=== PATIENT | female | born 1970 | race Caucasian/White ===

== ENCOUNTER → 2020-03-11 | Outpatient (CLI) | payer BC ==
[2020-03-11 09:20] LABS: ABSOLUTE BASOPHILS # (AUTO) 0.1 10^3/uL (0.0-0.2); ABSOLUTE EOSINOPHILS # (AUTO) 0.4 10^3/uL (0.0-0.6); ABSOLUTE LYMPHOCYTES (AUTO) 1.2 10^3/uL (0.5-4.7); ABSOLUTE MONOCYTES (AUTO) 0.4 10^3/uL (0.1-1.4); ABSOLUTE NEUT (AUTO) 3.4 10^3/uL (1.7-8.2); BASOPHILS % (AUTO) 1.1 % (0-2); EOSINOPHILS % (AUTO) 7.5 % (0-6); HEMATOCRIT 40.6 % (36.0-47.0); HEMOGLOBIN 14.1 g/dL (12.0-15.5); MEAN CORPUSCULAR HEMOGLOBIN 32.3 pg (27.0-33.4); MEAN CORPUSCULAR HGB CONC 34.7 g/dL (32.0-36.0); MEAN CORPUSCULAR VOLUME 93 fl (80-97); MONOCYTES % (AUTO) 7.8 % (3-13); PLATELET COUNT 259 10^3/uL (150-450); RED BLOOD COUNT 4.37 10^6/uL (3.72-5.28); RED CELL DISTRIBUTION WIDTH 12.8 % (11.5-14.0); SEGMENTED NEUTROPHILS % (AUTO) 61.6 % (42-78); TOTAL CELLS COUNTED % (AUTO) 100 %; WHITE BLOOD COUNT 5.5 10^3/uL (4.0-10.5)
[2020-03-11 09:52] LABS: ALBUMIN 4.7 g/dL (3.5-5.0); ALKALINE PHOSPHATASE 85 U/L (38-126); ASPARTATE AMINO TRANSFERASE 33 U/L (14-36); BILIRUBIN,DIRECT 0.3 mg/dL (0.0-0.4); BILIRUBIN,TOTAL 0.6 mg/dL (0.2-1.3); TOTAL PROTEIN 8.2 g/dL (6.3-8.2)
[2020-03-11 10:00] LABS: ANION GAP 9 (5-19); ASPARTATE AMINO TRANSFERASE 32 U/L (14-36); BLOOD UREA NITROGEN 16 mg/dL (7-20); CALCIUM 9.6 mg/dL (8.4-10.2); CARBON DIOXIDE 30 mmol/L (22-30); CHLORIDE 103 mmol/L (98-107); GLUCOSE 118 mg/dL (75-110); POTASSIUM 4.7 mmol/L (3.6-5.0)
[2020-03-12 11:38] LABS: HEPATITIS C VIRUS AB <0.1 s/co ratio (0.0-0.9)
[2020-03-12 13:10] LABS: HEPATITS B SURFACE ANTIGEN Negative (Negative)
[2020-03-12 14:44] LABS: ANTINUCLEAR ANTIBODIES Negative (Negative)
== END ==
LOC: OD 07:52
PROVIDERS: ATTEND Physician Assistant
DX: R94.5 Abnormal results of liver function studies (principal); I10 Essential (primary) hypertension; Z79.899 Other long term (current) drug therapy
CPT/HCPCS: 36415; 80048; 80076; 84450; 84460; 85025; 86038; 86235; 86256; 86707; 86803; 86804; 87340

== ENCOUNTER 2020-05-07 11:41 | Inpatient (IN) | payer BC ==
[2020-05-07] MEDS ORDERED: MORPHINE SULFATE 10 MG/ML INJ IV ONE (12:56)
[2020-05-07] MEDS ORDERED: PROMETHAZINE HCL INJ 25 MG/1 ML VIAL IV ONE (12:56)
[2020-05-07] MEDS ORDERED: NORMAL SALINE 1000 ML 1,000 ML IV ONE ×2 (12:56→15:19)
[2020-05-07 13:37] LABS: ABSOLUTE EOSINOPHILS # (AUTO) 0.8 10^3/uL (0.0-0.6); ABSOLUTE LYMPHOCYTES (AUTO) 1.2 10^3/uL (0.5-4.7); ABSOLUTE MONOCYTES (AUTO) 1.2 10^3/uL (0.1-1.4); ABSOLUTE NEUT (AUTO) 7.9 10^3/uL (1.7-8.2); BASOPHILS % (AUTO) 0.3 % (0-2); EOSINOPHILS % (AUTO) 6.8 % (0-6); HEMATOCRIT 34.6 % (36.0-47.0); HEMOGLOBIN 11.8 g/dL (12.0-15.5); LYMPHOCYTES % (AUTO) 10.6 % (13-45); MEAN CORPUSCULAR HEMOGLOBIN 31.5 pg (27.0-33.4); MEAN CORPUSCULAR HGB CONC 34.1 g/dL (32.0-36.0); MEAN CORPUSCULAR VOLUME 92 fl (80-97); MONOCYTES % (AUTO) 10.8 % (3-13); PLATELET COUNT 398 10^3/uL (150-450); RED BLOOD COUNT 3.74 10^6/uL (3.72-5.28); RED CELL DISTRIBUTION WIDTH 13.7 % (11.5-14.0); SEGMENTED NEUTROPHILS % (AUTO) 71.5 % (42-78); TOTAL CELLS COUNTED % (AUTO) 100 %
[2020-05-07 14:00] LABS: ALBUMIN 3.7 g/dL (3.5-5.0); ALKALINE PHOSPHATASE 89 U/L (38-126); ANION GAP 9 (5-19); ASPARTATE AMINO TRANSFERASE 27 U/L (14-36); BILIRUBIN,DIRECT 0.1 mg/dL (0.0-0.4); BILIRUBIN,TOTAL 0.6 mg/dL (0.2-1.3); BLOOD UREA NITROGEN 10 mg/dL (7-20); CALCIUM 8.8 mg/dL (8.4-10.2); CARBON DIOXIDE 34 mmol/L (22-30); CHLORIDE 90 mmol/L (98-107); GLUCOSE 153 mg/dL (75-110); POTASSIUM 3.5 mmol/L (3.6-5.0)
--- NOTE | 2020-05-07 15:00 | RADIOLOGY REPORT (SQ) ---
EXAM DESCRIPTION: CT ABD/PELVIS WITH IV ONLY IMAGES COMPLETED DATE/TIME: 05/07/2020 2:38 pm REASON FOR STUDY: elevated lipase, eval for pancreatitis COMPARISON: 10/24/2006 TECHNIQUE: CT scan of the abdomen and pelvis performed using helical scanning technique with dynamic intravenous contrast injection. No oral contrast. Images reviewed with lung, soft tissue, and bone windows. Reconstructed coronal and sagittal MPR images reviewed. Delayed images for evaluation of the urinary system also acquired. All images stored on PACS. All CT scanners at this facility use dose modulation, iterative reconstruction, and/or weight based d osing when appropriate to reduce radiation dose to as low as reasonably achievable (ALARA). [facility]: Dose Right [facility]: CareDose [facility]: Dose Right [facility]: Teradose 4D [facility]: Xitronix CONTRAST TYPE AND DOSE: contrast/concentration: Isovue 350.00 mmol/ml; Total Contrast Delivered: 100 .0 ml; Total Saline Delivered: 52.0 ml RENAL FUNCTION: Creatinine 0.98 RADIATION DOSE: CT Rad equipment meets quality standard of care and radiation dose reduction techniq ues were employed. CTDIvol: 13.6 - 18.2 mGy. DLP: 1891 mGy-cm.. LIMITATIONS: None. FINDINGS: LOWER CHEST: No significant findings. No nodules or infiltrates. LIVER: Hepatic steatosis. SPLEEN: Normal size. No focal lesions. PANCREAS: Fullness about the pancreatic tail to without discrete mass identified. This is stable com pared to exam dated 10/29/2006. Minimal peripancreatic stranding without significant fluid collection . No areas of hypoenhancement suggestive of pancreatic necrosis. GALLBLADDER: Surgically absent. ADRENAL GLANDS: No significant masses or asymmetry. RIGHT KIDNEY AND URETER: No solid masses. No significant calcifications. No hydronephrosis or hyd roureter. LEFT KIDNEY AND URETER: No solid masses. No significant calcifications. No hydronephrosis or hydr oureter. AORTA AND VESSELS: No aneurysm. No dissection. Renal arteries, SMA, celiac without stenosis. RETROPERITONEUM: No retroperitoneal adenopathy, hemorrhage or masses. BOWEL AND PERITONEAL CAVITY: No evidence of intestinal obstruction. Decompressed descending and rect osigmoid colon with mild wall thickening in mesenteric prominence. APPENDIX: Surgically absent. PELVIS: Decompressed urinary bladder. No pelvic free fluid, adenopathy or mass. Status post hystere ctomy. ABDOMINAL WALL: No masses. No hernias. BONES: No acute bony abnormality. No suspicious lytic or blastic osseous lesions. Lower lumbar face t arthropathy. OTHER: No other significant finding. IMPRESSION: 1. Minimal peripancreatic stranding compatible with acute interstitial pancreatitis. N o findings to suggest pancreatic necrosis. No significant collection. 2. Decompressed descending and rectosigmoid colon with mild diffuse wall thickening. Recommend joanie elation for evidence of colitis. 3. Hepatic steatosis. Cholecystectomy. TECHNICAL DOCUMENTATION: JOB ID: [id number] Quality ID # [id number]: Final reports with documentation of one or more dose reduction techniques (e.g., Au tomated exposure control, adjustment of the mA and/or kV according to patient size, use of iterative reconstruction technique) 2010 [employer]- All Rights Reserved Reading location - IP/workstation name: [email or web address]
[2020-05-07] MEDS ORDERED: POTASSI CL 40 MEQ/NS 1L 1,000 ML IV ONE (15:22)
[2020-05-07 15:25] LABS: APPEARANCE,URINE CLEAR; BILIRUBIN,URINE NEGATIVE (NEGATIVE); COLOR,URINE STRAW; GLUCOSE, URINE NEGATIVE (NEGATIVE); KETONES,URINE NEGATIVE (NEGATIVE); LEUKOCYTE ESTERASE,URINE NEGATIVE (NEGATIVE); NITRITE,URINE NEGATIVE (NEGATIVE); PROTEIN,URINE NEGATIVE (NEGATIVE); URINE SPECIFIC GRAVITY 1.044; UROBILINOGEN,URINE NEGATIVE mg/dL (<2.0)
--- NOTE | 2020-05-07 15:33 | ER Document Report ---
ED General - General Chief Complaint: Epigastric Pain Stated Complaint: NAUSEA,VOMITING,DIARRHEA Time Seen by Provider: 05/07/20 12:27 Primary Care Provider: ROSEMARY ENAMORADO MD [Primary Care Provider] - Follow up as needed TRAVEL OUTSIDE OF THE [place] IN LAST 30 DAYS: No - HPI Notes: Patient is a 49-year-old female who has a history of ulcerative colitis, hypertension, who presents emergency department for evaluation of epigastric pain, nausea, vomiting. She has chronic diarrhea, usually bloody secondary to her ulcerative colitis. She states that she has had greenish diarrhea over the last week. She has had nausea with multiple episodes of emesis over the last week. She has epigastric pain that radiates over the right upper quadrant. It radiates into the back. No fever she has had some chills. No urinary symptoms. She had seen her wireless team member, who ordered a right upper quadrant ultrasound, showed only fatty liver. She tried Zofran at home without any significant relief. - Related Data Allergies/Adverse Reactions: Sulfa (Sulfonamide Antibiotics) Allergy (Unknown, Verified 05/07/20 12:07) Home Medications: nexium, zofran, hctz, vit d2, delzicol Past Medical History - General Information source: Patient - Social History Smoking Status: Never Smoker Chew tobacco use (# tins/day): No Frequency of alcohol use: None Drug Abuse: None Family History: Reviewed & Not Pertinent Patient has homicidal ideation: No - Past Medical History Cardiac Medical History: Reports: Hx Hypercholesterolemia, Hx Hypertension GI Medical History: Reports: Hx Ulcerative Colitis Past Surgical History: Reports: Hx Appendectomy, Hx Section, Hx Cholecystectomy, Hx Hysterectomy, Hx Tubal Ligation Review of Systems - Review of Systems Constitutional: See HPI EENT: No symptoms reported Cardiovascular: No symptoms reported Respiratory: No symptoms reported Gastrointestinal: See HPI Genitourinary: No symptoms reported Musculoskeletal: No symptoms reported Skin: No symptoms reported Neurological/Psychological: No symptoms reported -: Yes All other systems reviewed and negative Physical Exam - Vital signs Vitals: Temp Pulse Resp BP Pulse Ox 98.7 F 122 H 18 131/66 H 99 05/07/20 12:00 05/07/20 12:00 05/07/20 12:00 05/07/20 12:00 05/07/20 12:00 - Notes Notes: vital signs reviewed, please refer to chart. Head is normocephalic, atraumatic. Pupils equal round, reactive to light. Neck is supple without meningismus. Heart is regular rate and rhythm. Lungs are clear to auscultation bilaterally. Abdomen is soft, moderately tender without rebound or guarding, normoactive bowel sounds throughout. Extremities without cyanosis, clubbing. Posterior calves are nontender. Peripheral pulses are equal. Skin is warm and dry. Patient is awake, alert, neurological exam is nonfocal. Course - Re-evaluation Re-evalutation: 05/07/20 15:32 Patient presents emergency department for evaluation. She was given IV fluids, Phenergan, morphine. She had moderate improvement in her symptoms. Laboratory investigations revealed an elevated lipase. CT scan of the abdomen pelvis with IV contrast was ordered and showed acute interstitial pancreatitis. The patient does not have a gallbladder. She is kept n.p.o. Her potassium was borderline, this was replaced with her second liter of fluids. She is currently stable. I spoke with Dr. Denis, he will admit the patient for further care. - Vital Signs Vital signs: Temp Pulse Resp BP Pulse Ox 98.7 F 95 14 124/54 L 92 05/07/20 12:00 05/07/20 14:07 05/07/20 14:07 05/07/20 14:07 05/07/20 14:07 - Laboratory Result Diagrams: 05/07/20 12:51 05/07/20 12:51 Laboratory results interpreted by me: 05/07/20 05/07/20 12:51 12:51 WBC 11.0 H Hgb 11.8 L Hct 34.6 L Lymph % (Auto) 10.6 L Eos % (Auto) 6.8 H Absolute Eos (auto) 0.8 H Sodium 132.5 L Potassium 3.5 L Chloride 90 L Carbon Dioxide 34 H Glucose 153 H Lipase 924.0 H - Diagnostic Test Radiology reviewed: Image reviewed, Reports reviewed Radiology results interpreted by me: 05/07/20 15:33 Abdomen/Pelvis CT 05/07/20 14:07 IMPRESSION: 1. Minimal peripancreatic stranding compatible with acute interstitial pancreatitis. No findings to suggest pancreatic necrosis. No significant collection. 2. Decompressed descending and rectosigmoid colon with mild diffuse wall thickening. Recommend correlation for evidence of colitis. 3. Hepatic steatosis. Cholecystectomy. Discharge - Discharge Clinical Impression: Acute pancreatitis Qualifiers: Pancreatitis type: unspecified pancreatitis type Acute pancreatitis complication: unspecified Qualified Code(s): K85.90 - Acute pancreatitis without necrosis or infection, unspecified Condition: Stable Disposition: ADMITTED INPATIENT Admitting Provider: Cira (Hospitalist) Unit Admitted: Medical Floor Referrals: ROSEMARY ENAMORADO MD [Primary Care Provider] - Follow up as needed
[2020-05-07] MEDS ORDERED: NORMAL SALINE 1000 ML 1,000 ML IV PRN (15:55)
[2020-05-07] MEDS ORDERED: GLUCAGON,HUMAN RECOMB 1 MG INJ SUBCUT PRN (15:55)
[2020-05-07] MEDS ORDERED: ACETAMINOPHEN 325 MG TABLET PO PRN (15:55)
[2020-05-07] MEDS ORDERED: DEXTROSE 40% GEL 15 GM TUBE PO PRN ×2 (15:55)
[2020-05-07] MEDS ORDERED: DEXTROSE 50%-WATER 25 GM/50 ML DISP.SYRIN IV PRN ×2 (15:55)
[2020-05-07] MEDS ORDERED: LABETALOL HCL INJ 20 MG/4 ML DISP.SYRIN IV PRN (16:01)
--- NOTE | 2020-05-07 16:09 | PDOC H&P ---
History of Present Illness Admission Date/PCP: 05/07/20 15:38 ROSEMARY PAIGE MD Patient complains of: Came in with complaints of nausea vomiting in association with abdominal pain and loose stools for the last 3 to 4 days. History of Present Illness: JAYLYN AUSTIN is a 49 year old female with history of hypertension, ulcerative colitis, history of cholecystectomy came to the emergency room with complaints of abdominal pain associated with nausea vomiting for the last 3 to 4 days. Patient has history of chronic diarrhea secondary to ulcerative colitis. Work- up in the emergency room indicates acute pancreatitis with elevated lipase. Patient denies any alcohol use and this is the first episode of pancreatitis. She was given IV morphine, Phenergan in the ER and patient is same pain is much improved and nausea is resolving. She agreed to stay in the hospital for further management. She sees Dr. Paige as primary care and Dr. Parks is her solid center winder. Past Medical History Cardiac Medical History: Reports: Hyperlipidema, Hypertension GI Medical History: Reports: Ulcerative Colitis Skin Medical History: Reports: None Psychiatric Medical History: Reports: None Traumatic Medical History: Reports: None Hematology: Reports: None Infectious Medical History: Reports: None Past Surgical History Past Surgical History: Reports: Appendectomy, Section, Cholecystectomy, Hysterectomy, Tubal Ligation Social History Smoking Status: Never Smoker Electronic Cigarette use?: No Hx Recreational Drug Use: No Hx Prescription Drug Abuse: No - Advance Directive Resuscitation Status: Full Code Family History Family History: Reviewed & Not Pertinent Parental Family History Reviewed: No - Family history of hypertension Children Family History Reviewed: Unknown Sibling(s) Family History Reviewed.: Unknown Medication/Allergy Home Medications: Cyclobenzaprine HCl [Flexeril 10 mg Tablet] 10 mg PO TIDP PRN #15 tab 05/18/14 Hydrocodone/Acetaminophen [[place] 5-325 mg Tabs #6 ER Disp] 1 tab PO Q4H PRN #6 dspk 05/18/14 Methylprednisolone [Medrol Dosepack (4 mg/Tab) 21 Tab/Dosepak] 4 mg PO ASDIR PRN #21 tab.ds.pk 05/18/14 Allergies/Adverse Reactions: Sulfa (Sulfonamide Antibiotics) Allergy (Unknown, Verified 05/07/20 12:07) Review of Systems Constitutional: ABSENT: fever(s), headache(s), night sweats, weakness Eyes: ABSENT: visual disturbances Ears: ABSENT: hearing changes Nose, Mouth, and Throat: ABSENT: sore throat Cardiovascular: ABSENT: edema Respiratory: ABSENT: dyspnea, hemoptysis Gastrointestinal: PRESENT: abdominal pain, diarrhea, nausea, vomiting Musculoskeletal: ABSENT: joint swelling Integumentary: ABSENT: rash, wounds Neurological: ABSENT: abnormal gait, abnormal speech, confusion, dizziness, focal weakness, syncope Psychiatric: ABSENT: anxiety, depression, homidical ideation, suicidal ideation Physical Exam Vital Signs: Temp Pulse Resp BP Pulse Ox 98.7 F 95 14 124/54 L 92 05/07/20 12:00 05/07/20 14:07 05/07/20 14:07 05/07/20 14:07 05/07/20 14:07 Intake & Output 05/06/20 05/07/20 05/08/20 06:59 06:59 06:59 Intake Total 1000 Balance 1000 Weight 88.451 kg General appearance: PRESENT: no acute distress Head exam: PRESENT: atraumatic Eye exam: PRESENT: PERRLA Ear exam: PRESENT: normal external ear exam Neck exam: ABSENT: carotid bruit, JVD, lymphadenopathy, thyromegaly Respiratory exam: PRESENT: decreased breath sounds Cardiovascular exam: PRESENT: RRR. ABSENT: diastolic murmur, rubs, systolic murmur GI/Abdominal exam: PRESENT: normal bowel sounds, soft, tenderness. ABSENT: distended, guarding, mass, organolmegaly, rebound Rectal exam: PRESENT: deferred Extremities exam: PRESENT: full ROM. ABSENT: calf tenderness, clubbing, pedal edema Neurological exam: PRESENT: alert, awake, oriented to person, oriented to place, oriented to time, oriented to situation, CN II-XII grossly intact. ABSENT: motor sensory deficit Psychiatric exam: PRESENT: appropriate affect, normal mood. ABSENT: homicidal ideation, suicidal ideation Results Laboratory Results: 05/07/20 12:51 05/07/20 12:51 05/07/20 05/07/20 05/07/20 12:51 12:51 12:51 WBC 11.0 H RBC 3.74 Hgb 11.8 L Hct 34.6 L MCV 92 MCH 31.5 MCHC 34.1 RDW 13.7 Plt Count 398 Seg Neutrophils % 71.5 Sodium 132.5 L Potassium 3.5 L Chloride 90 L Carbon Dioxide 34 H Anion Gap 9 BUN 10 Creatinine 0.98 Est GFR ( Amer) > 60 Glucose 153 H Calcium 8.8 Total Bilirubin 0.6 AST 27 Alkaline Phosphatase 89 Total Protein 7.0 Albumin 3.7 Lipase 924.0 H Urine Color Cancelled Urine Appearance Cancelled Urine pH Cancelled Ur Specific [place] Cancelled Urine Protein Cancelled Urine Glucose (UA) Cancelled Urine Ketones Cancelled Urine Blood Cancelled Urine Nitrite Cancelled Ur Leukocyte Esterase Cancelled Urine WBC (Auto) Cancelled Urine RBC (Auto) Cancelled 05/07/20 15:10 WBC RBC Hgb Hct MCV MCH MCHC RDW Plt Count Seg Neutrophils % Sodium Potassium Chloride Carbon Dioxide Anion Gap BUN Creatinine Est GFR ( Amer) Glucose Calcium Total Bilirubin AST Alkaline Phosphatase Total Protein Albumin Lipase Urine Color STRAW Urine Appearance CLEAR Urine pH 6.0 Ur Specific [place] 1.044 Urine Protein NEGATIVE Urine Glucose (UA) NEGATIVE Urine Ketones NEGATIVE Urine Blood NEGATIVE Urine Nitrite NEGATIVE Ur Leukocyte Esterase NEGATIVE Urine WBC (Auto) 0 Urine RBC (Auto) Impressions: Abdomen/Pelvis CT 05/07/20 14:07 IMPRESSION: 1. Minimal peripancreatic stranding compatible with acute interstitial pancreatitis. No findings to suggest pancreatic necrosis. No significant collection. 2. Decompressed descending and rectosigmoid colon with mild diffuse wall thickening. Recommend correlation for evidence of colitis. 3. Hepatic steatosis. Cholecystectomy. Assessment and Plan - Diagnosis (1) Acute pancreatitis Qualifiers: Pancreatitis type: unspecified pancreatitis type Acute pancreatitis complication: unspecified Qualified Code(s): K85.90 - Acute pancreatitis without necrosis or infection, unspecified Is this a current diagnosis for this admission?: Yes Plan: 05/07/2020-patient is going to be admitted to medical floor with a diagnosis of acute pancreatitis. She will be n.p.o., started on IV fluids, IV morphine, IV Phenergan. Lipase level is more than 900 at the time of admission to do the daily lipase and amylase levels. GI prophylaxis DVT prophylaxis initiated. (2) HTN (hypertension) Is this a current diagnosis for this admission?: No Plan: 05/07/2020-patient has history of chronic essential hypertension to restart home medications at this time. Blood pressure in the ER is 120/70. (3) Ulcerative colitis Is this a current diagnosis for this admission?: No Plan: 05/07/2020-patient has history of ulcerative colitis she follows Dr. Parks. As per the patient she is on mesalamine at home. Complaining of chronic diarrhea but denies any blood in the stool at this time. (4) Obesity (BMI 30.0-34.9) Is this a current diagnosis for this admission?: No Plan: 05/07/2020-patient BMI is more than 35. Diet exercise weight loss, advised. - Time Anticipated Discharge Disposition: Home, Self Care Anticipated Discharge Timeframe: within 72 hours
[2020-05-07] MEDS: MORPHINE SULFATE 10 MG/ML INJ IV PRN (16:24)
[2020-05-07] MEDS: FAMOTIDINE INJ/PF 20 MG/2 ML SDV IV SCH (21:13)
[2020-05-08 05:51] LABS: ABSOLUTE BASOPHILS # (AUTO) 0.1 10^3/uL (0.0-0.2); ABSOLUTE EOSINOPHILS # (AUTO) 1.4 10^3/uL (0.0-0.6); ABSOLUTE LYMPHOCYTES (AUTO) 1.9 10^3/uL (0.5-4.7); ABSOLUTE NEUT (AUTO) 5.1 10^3/uL (1.7-8.2); BASOPHILS % (AUTO) 0.7 % (0-2); EOSINOPHILS % (AUTO) 14.8 % (0-6); HEMATOCRIT 32.7 % (36.0-47.0); HEMOGLOBIN 11.4 g/dL (12.0-15.5); LYMPHOCYTES % (AUTO) 20.1 % (13-45); MEAN CORPUSCULAR HEMOGLOBIN 32.5 pg (27.0-33.4); MEAN CORPUSCULAR HGB CONC 34.9 g/dL (32.0-36.0); MEAN CORPUSCULAR VOLUME 93 fl (80-97); MONOCYTES % (AUTO) 10.9 % (3-13); PLATELET COUNT 367 10^3/uL (150-450); RED BLOOD COUNT 3.51 10^6/uL (3.72-5.28); RED CELL DISTRIBUTION WIDTH 14.3 % (11.5-14.0); SEGMENTED NEUTROPHILS % (AUTO) 53.5 % (42-78); TOTAL CELLS COUNTED % (AUTO) 100 %; WHITE BLOOD COUNT 9.6 10^3/uL (4.0-10.5)
[2020-05-08 06:12] LABS: ALBUMIN 3.6 g/dL (3.5-5.0); ALKALINE PHOSPHATASE 74 U/L (38-126); AMYLASE 55 U/L (30-110); ANION GAP 10 (5-19); ASPARTATE AMINO TRANSFERASE 21 U/L (14-36); BILIRUBIN,DIRECT 0.3 mg/dL (0.0-0.4); BILIRUBIN,TOTAL 0.6 mg/dL (0.2-1.3); BLOOD UREA NITROGEN 8 mg/dL (7-20); CALCIUM 8.7 mg/dL (8.4-10.2); CARBON DIOXIDE 33 mmol/L (22-30); CHLORIDE 96 mmol/L (98-107); CHOLESTEROL 162.05 mg/dL (0-200); GLUCOSE 117 mg/dL (75-110); POTASSIUM 3.5 mmol/L (3.6-5.0); TOTAL PROTEIN 6.9 g/dL (6.3-8.2); TRIGLYCERIDES 149 mg/dL (<150)
[2020-05-08 06:23] LABS: DIRECT LDL 113 mg/dL (<100)
[2020-05-08] MEDS: ONDANSETRON HCL INJ/PF 4 MG/2 ML SDV IV PRN (06:55)
[2020-05-08] MEDS: ENOXAPARIN SODIUM INJ 40 MG/0.4 ML DISP.SYRIN SUBCUT SCH (09:51)
[2020-05-08] MEDS: FAMOTIDINE INJ/PF 20 MG/2 ML SDV IV SCH ×2 (09:51→21:08)
--- NOTE | 2020-05-08 11:42 | PDOC PROGRESS REPORT ---
Subjective Date:: 05/08/20 Subjective:: The patient is an extremely pleasant 49-year-old female who was admitt ed to the hospital yesterday with acute pancreatitis. She was made n.p.o. and started on IV fluids. Her past medical history is significant also for ulcerative colitis. Today when I went to see the patient she is resting comfortably in the bed. She has not received any pain medication since last night. She states she is having a little bit of discomfort at this time but overall is feeling better. We discussed transitioning to a clear liquid diet and she would like to try that today. Overall she denies fever or shaking chills. No chest pain or heart palpitations. No nausea or vomiting. Abdominal pain is somewhat improved although she is still a little tender in the epigastric area. She is having no diarrhea. She has no urinary complaints. Reason For Visit: ACUTE PANCREATITIS Physical Exam Vital Signs: Temp Pulse Resp BP Pulse Ox 98.3 F 87 17 125/69 91 L 05/08/20 07:43 05/08/20 07:43 05/08/20 07:43 05/08/20 07:43 05/08/20 07:43 Intake & Output 05/07/20 05/08/20 05/09/20 06:59 06:59 06:59 Intake Total 1367 Balance 1367 Weight 91.4 kg General appearance: PRESENT: obese, well-developed, well-nourished Head exam: PRESENT: atraumatic, normocephalic Mouth exam: PRESENT: moist Respiratory exam: PRESENT: clear to auscultation ned. ABSENT: chest wall tenderness, rales, rhonchi, wheezes Cardiovascular exam: PRESENT: RRR, +S1, +S2 GI/Abdominal exam: PRESENT: normal bowel sounds, soft, tenderness - Mildly tender to palpation in the epigastric area. ABSENT: guarding, rebound, rigid Rectal exam: PRESENT: deferred Extremities exam: ABSENT: calf tenderness, clubbing, pedal edema, tenderness Musculoskeletal exam: PRESENT: ambulatory Neurological exam: PRESENT: alert, awake, oriented to person, oriented to place, oriented to time, oriented to situation Psychiatric exam: PRESENT: appropriate affect. ABSENT: agitated, anxious Skin exam: PRESENT: dry, warm Results Laboratory Results: 05/08/20 04:08 05/08/20 04:08 1205/07/20 05/07/20 12:51 12:51 12:51 WBC 11.0 H RBC 3.74 Hgb 11.8 L Hct 34.6 L MCV 92 MCH 31.5 MCHC 34.1 RDW 13.7 Plt Count 398 Seg Neutrophils % 71.5 Sodium 132.5 L Potassium 3.5 L Chloride 90 L Carbon Dioxide 34 H Anion Gap 9 BUN 10 Creatinine 0.98 Est GFR ( Amer) > 60 Glucose 153 H Calcium 8.8 Magnesium Total Bilirubin 0.6 AST 27 Alkaline Phosphatase 89 Total Protein 7.0 Albumin 3.7 Triglycerides Cholesterol LDL Cholesterol Direct VLDL Cholesterol HDL Cholesterol Amylase Lipase 924.0 H TSH Urine Color Cancelled Urine Appearance Cancelled Urine pH Cancelled Ur Specific [place] Cancelled Urine Protein Cancelled Urine Glucose (UA) Cancelled Urine Ketones Cancelled Urine Blood Cancelled Urine Nitrite Cancelled Ur Leukocyte Esterase Cancelled Urine WBC (Auto) Cancelled Urine RBC (Auto) Cancelled 05/07/20 05/08/20 05/08/20 15:10 04:08 04:08 WBC 9.6 RBC 3.51 L Hgb 11.4 L Hct 32.7 L MCV 93 MCH 32.5 MCHC 34.9 RDW 14.3 H Plt Count 367 Seg Neutrophils % 53.5 Sodium 138.8 Potassium 3.5 L Chloride 96 L Carbon Dioxide 33 H Anion Gap 10 BUN 8 Creatinine 0.87 Est GFR ( Amer) > 60 Glucose 117 H Calcium 8.7 Magnesium 2.2 Total Bilirubin 0.6 AST 21 Alkaline Phosphatase 74 Total Protein 6.9 Albumin 3.6 Triglycerides 149 Cholesterol 162.05 LDL Cholesterol Direct 113 H VLDL Cholesterol 30.0 HDL Cholesterol 29 L Amylase 55 Lipase 645.6 H TSH Urine Color STRAW Urine Appearance CLEAR Urine pH 6.0 Ur Specific [place] 1.044 Urine Protein NEGATIVE Urine Glucose (UA) NEGATIVE Urine Ketones NEGATIVE Urine Blood NEGATIVE Urine Nitrite NEGATIVE Ur Leukocyte Esterase NEGATIVE Urine WBC (Auto) 0 Urine RBC (Auto) 05/08/20 04:08 WBC RBC Hgb Hct MCV MCH MCHC RDW Plt Count Seg Neutrophils % Sodium Potassium Chloride Carbon Dioxide Anion Gap BUN Creatinine Est GFR ( Amer) Glucose Calcium Magnesium Total Bilirubin AST Alkaline Phosphatase Total Protein Albumin Triglycerides Cholesterol LDL Cholesterol Direct VLDL Cholesterol HDL Cholesterol Amylase Lipase TSH 1.55 Urine Color Urine Appearance Urine pH Ur Specific [place] Urine Protein Urine Glucose (UA) Urine Ketones Urine Blood Urine Nitrite Ur Leukocyte Esterase Urine WBC (Auto) Urine RBC (Auto) 05/08/20 04:08 NT-Pro-B Natriuret Pep 65 Impressions: Abdomen/Pelvis CT 05/07/20 14:07 IMPRESSION: 1. Minimal peripancreatic stranding compatible with acute interstitial pancreatitis. No findings to suggest pancreatic necrosis. No significant collection. 2. Decompressed descending and rectosigmoid colon with mild diffuse wall thickening. Recommend correlation for evidence of colitis. 3. Hepatic steatosis. Cholecystectomy. Assessment and Plan - Diagnosis (1) Acute pancreatitis Qualifiers: Pancreatitis type: unspecified pancreatitis type Acute pancreatitis complication: unspecified Qualified Code(s): K85.90 - Acute pancreatitis without necrosis or infection, unspecified Is this a current diagnosis for this admission?: Yes Plan: The patient seems to be slowly improving. Continue IV fluids for now. I am going to place the patient on clear liquids today and will see how she does. She will continue to have pain medication available as needed (2) Obesity (BMI 35.0-39.9 without comorbidity) Is this a current diagnosis for this admission?: Yes Plan: Weight loss is recommended through dietary modifications and exercise as carissa rated. She does states she has lost over 12 pounds in the past week as she has not been able to tolerate p.o. intake. (3) Ulcerative colitis Is this a current diagnosis for this admission?: No Plan: Quiescent. She will follow up with GI as an outpatient. (4) HTN (hypertension) Is this a current diagnosis for this admission?: No Plan: Currently on no medication. She has IV labetalol available as needed. Blood pressure is well controlled (5) Anemia Is this a current diagnosis for this admission?: Yes Plan: Likely secondary to chronic disease. Stable. (6) Hyponatremia Is this a current diagnosis for this admission?: Yes Plan: Likely due to intravascular volume depletion. Resolved with IV fluids. (7) Hypokalemia Is this a current diagnosis for this admission?: Yes Plan: I am worried if I give her p.o. supplementation today she might get nauseated on an empty stomach. I am going to give her 40 mEq of IV potassium today. She will have a chemistry panel drawn in the morning (8) Hyperglycemia Is this a current diagnosis for this admission?: Yes Plan: Likely reactive to her acute illness. Stable. (9) Full code status Is this a current diagnosis for this admission?: Yes - Plan Summary Summary: Overall the patient is going to remain in the hospital. We are going to try her on clear liquids today. Her diet will need to be successfully advanced. For now she is still requiring parenteral fluids and pain medication. I believe she needs to stay in the hospital but I am hopeful she can get out in the next 24 to 48 hours if she continues to improve. Her pancreatitis seems to be fairly mild. - Time Time Spent with patient: 35 or more minutes Anticipated Discharge Disposition: Home, Self Care Anticipated Discharge Timeframe: within 48 hours
[2020-05-08] MEDS: POTASSI CL 20 MEQ/50 ML RIDER 20 MEQ/50 ML RTUPB IV SCH ×2 (13:05→15:08)
[2020-05-08] MEDS: MORPHINE SULFATE 10 MG/ML INJ IV PRN ×2 (14:21→18:26)
[2020-05-08] MEDS: PROMETHAZINE HCL INJ 25 MG/1 ML VIAL IV PRN ×2 (14:21→18:26)
[2020-05-09 06:08] LABS: ABSOLUTE EOSINOPHILS # (AUTO) 1.5 10^3/uL (0.0-0.6); ABSOLUTE LYMPHOCYTES (AUTO) 1.4 10^3/uL (0.5-4.7); ABSOLUTE MONOCYTES (AUTO) 0.8 10^3/uL (0.1-1.4); ABSOLUTE NEUT (AUTO) 3.4 10^3/uL (1.7-8.2); BASOPHILS % (AUTO) 0.6 % (0-2); EOSINOPHILS % (AUTO) 21.4 % (0-6); HEMATOCRIT 30.2 % (36.0-47.0); HEMOGLOBIN 10.5 g/dL (12.0-15.5); LYMPHOCYTES % (AUTO) 19.8 % (13-45); MEAN CORPUSCULAR HGB CONC 34.7 g/dL (32.0-36.0); MEAN CORPUSCULAR VOLUME 92 fl (80-97); MONOCYTES % (AUTO) 11.1 % (3-13); PLATELET COUNT 351 10^3/uL (150-450); RED BLOOD COUNT 3.28 10^6/uL (3.72-5.28); SEGMENTED NEUTROPHILS % (AUTO) 47.1 % (42-78); TOTAL CELLS COUNTED % (AUTO) 100 %; WHITE BLOOD COUNT 7.1 10^3/uL (4.0-10.5)
[2020-05-09 06:26] LABS: ANION GAP 7 (5-19); BLOOD UREA NITROGEN 7 mg/dL (7-20); CALCIUM 8.3 mg/dL (8.4-10.2); CARBON DIOXIDE 28 mmol/L (22-30); CHLORIDE 100 mmol/L (98-107); GLUCOSE 113 mg/dL (75-110); PHOSPHORUS 3.3 mg/dL (2.5-4.5); POTASSIUM 3.4 mmol/L (3.6-5.0)
[2020-05-09] MEDS: ONDANSETRON HCL INJ/PF 4 MG/2 ML SDV IV PRN (09:24)
[2020-05-09] MEDS: ENOXAPARIN SODIUM INJ 40 MG/0.4 ML DISP.SYRIN SUBCUT SCH (09:24)
[2020-05-09] MEDS: MORPHINE SULFATE 10 MG/ML INJ IV PRN ×2 (09:24→21:40)
[2020-05-09] MEDS: FAMOTIDINE INJ/PF 20 MG/2 ML SDV IV SCH (09:24)
[2020-05-09] MEDS ORDERED: POTASSIUM CHLORIDE 10 MEQ TABLET.ER PO ONE (09:34)
[2020-05-09] MEDS: POTASSI CL 40 MEQ/NS 1L 1,000 ML IV PRN (09:42)
[2020-05-09] MEDS ORDERED: POTASSIUM CHLORIDE 20 MEQ PACKET PO ONE (10:30)
[2020-05-09 12:37] LABS: ABSOLUTE RETICS # 0.063 10^6/uL (0.028-0.122); RETICULOCYTE COUNT (AUTO) 1.92 % (0.66-2.85)
[2020-05-09 12:39] LABS: IRON(TIBC) 15.2 ug/dL (37-170)
[2020-05-09] MEDS ORDERED: NORMAL SALINE 1000 ML 1,000 ML IV ONE (12:41)
[2020-05-09] MEDS: METHYLPREDNISOLONE INJ 40 MG/1 ML SDV IV SCH ×2 (14:53→21:39)
[2020-05-09] MEDS ORDERED: OXYCODONE HCL IR 5 MG TABLET PO PRN (16:18)
--- NOTE | 2020-05-09 16:50 | PDOC PROGRESS REPORT ---
Subjective Date:: 05/09/20 Reason For Visit: ACUTE PANCREATITIS Physical Exam Vital Signs: Temp Pulse Resp BP Pulse Ox 98.1 F 87 16 122/79 97 05/09/20 12:39 05/09/20 12:39 05/09/20 12:39 05/09/20 12:39 05/09/20 12:39 Intake & Output 05/08/20 05/09/20 05/10/20 06:59 06:59 06:59 Intake Total 1367 1200 240 Balance 1367 1200 240 Weight 91.4 kg 92.7 kg Results Laboratory Results: 05/09/20 05:24 05/09/20 05:24 05/09/20 05/09/20 05/09/20 05:24 05:24 05:24 WBC 7.1 RBC 3.28 L Hgb 10.5 L Hct 30.2 L MCV 92 MCH 32.0 MCHC 34.7 RDW 14.0 Plt Count 351 Seg Neutrophils % 47.1 Retic Count (auto) 1.92 Sodium 135.4 L Potassium 3.4 L Chloride 100 Carbon Dioxide 28 Anion Gap 7 BUN 7 Creatinine 0.82 Est GFR ( Amer) > 60 Glucose 113 H Calcium 8.3 L Phosphorus 3.3 Magnesium 2.0 Iron TIBC % Saturation Ferritin C-Reactive Protein Albumin 3.0 L Lipase 471.5 H Vitamin B12 Folate 05/09/20 05/09/20 05:24 05:24 WBC RBC Hgb Hct MCV MCH MCHC RDW Plt Count Seg Neutrophils % Retic Count (auto) Sodium Potassium Chloride Carbon Dioxide Anion Gap BUN Creatinine Est GFR ( Amer) Glucose Calcium Phosphorus Magnesium Iron 15.2 L TIBC 231 L % Saturation 7 Ferritin 126.00 C-Reactive Protein 75.6 H Albumin Lipase Vitamin B12 > 1000.0 H Folate 18.80 05/08/20 04:08 NT-Pro-B Natriuret Pep 65 Impressions: Abdomen/Pelvis CT 05/07/20 14:07 IMPRESSION: 1. Minimal peripancreatic stranding compatible with acute inte rstitial pancreatitis. No findings to suggest pancreatic necrosis. No significant collection. 2. Decompressed descending and rectosigmoid colon with mild diffuse wall thickening. Recommend correlation for evidence of colitis. 3. Hepatic steatosis. Cholecystectomy. Assessment and Plan - Diagnosis (1) Ulcerative colitis, acute Qualifiers: Digestive disease complication type: other complication Qualified Code(s): K51.918 - Ulcerative colitis, unspecified with other complication Is this a current diagnosis for this admission?: Yes (2) Obesity (BMI 30-39.9) Is this a current diagnosis for this admission?: Yes (3) Anemia Is this a current diagnosis for this admission?: Yes (4) Hyperglycemia Is this a current diagnosis for this admission?: Yes (5) Hypokalemia Is this a current diagnosis for this admission?: Yes (6) Hyponatremia Is this a current diagnosis for this admission?: Yes - Plan Summary Summary: Mrs. JAYLYN AUSTIN is a 49 year old female with PMH of ulcerative colitis who presented with crampy abdominal pain, 9-10 bloody BM per day x10 days and recent onset of nausea/vomiting x4 days. Patient has history of chronic diarrhea secondary to ulcerative colitis, but normally has 5-6 BM/day. 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 She was just recently diagnosed with UC a couple months ago, and underwent EGD/colonoscopy with Dr. Parks at that time. She has been taking mesalamine faithfully TID for about 6 weeks and has no prior history of steroid usage. She has had no sick contacts; no one at home has had vomiting/diarrhea. She denies fevers/chills. Acute, Severe Ulcerative Colitis Flare: on admission, she was initially started on IVF, pain and anti-emetic medications due to concern for possible pancreatitis. Her lipase was elevated at 924. She has no history of ETOH usage, is s/p remote cholecystectomy and has normal triglycerides. CT A/P on admission was notable for "minimal peripancreatic stranding" as well as "decompressed descending and rectosigmoid colon with mild diffuse wall thickening." At this point, she has been receiving treatment for possible pancreatitis x3 days and her symptoms have continued to get worse. I am concerned that she is having 10+ bloody BM per day, and there is evidence of colitis on her initial CT. She meets criteria for acute severe UC flare with her bloody stool frequency, anemia and elevated CRP. - She is at risk for developing fulminant UC and should start having serial abdominal XR if she develops worsening abdominal pain or distention. She had no evidence of bowel dilation on admission CT. Abdominal examination today is benign, soft, with minimal epigastric tenderness and no rebound/guarding. - She remains HD-stable although she is dehydrated on my examination and would benefit from increased IVF. - She has no peritoneal signs, fever and does not meet the criteria for fulminant colitis or toxic megacolon, so will hold off on antibiotics for now. - order BCx, stool culture, C diff - avoid all anti-motility agents and minimize opioids as much as possible (due to the risk of ileus) - hold home mesalamine - start methylprednisolone 20 mg IV Q8H + PPI therapy - advance diet as tolerated - unfortunately, we do not have GI occupational health rn here at [place], but I will reach out to Dr. Parks on Monday to discuss Normocytic Anemia: likely combination of anemia of chronic disease and chronic blood loss - hgb 10.5 today, slowly trending down this admission - check iron studies - transfuse for goal hgb >7 Dehydration: due to diarrhea and poor oral intake - bolus 1 L NS today and start NS+KCl continuous fluids Hypokalemia: due to diarrhea and poor oral intake - IV and PO repletion Hypovolemic Hyponatremia: due to diarrhea and poor oral intake - IVF as per above DM2: HbA1c 7.0% - encourage diet, exercise and weight loss - hold off on metformin initiation given chronic diarrhea - SSI while inpatient Obesity (BMI 36) - encourage diet, exercise and weight loss DVT ppx: Lovenox - Time Time Spent with patient: 35 or more minutes Anticipated Discharge Disposition: Home, Self Care Anticipated Discharge Timeframe: within 72 hours
[2020-05-09] MEDS ORDERED: DEXTROSE 40% GEL 15 GM TUBE PO PRN ×2 (16:52)
[2020-05-09] MEDS ORDERED: GLUCAGON,HUMAN RECOMB 1 MG INJ IM PRN (16:52)
[2020-05-09] MEDS ORDERED: DEXTROSE 50%-WATER 25 GM/50 ML DISP.SYRIN IV PRN ×2 (16:52)
[2020-05-09] MEDS: INSULIN LISPRO 100 UNIT/ML 3 ML VIAL SUBCUT SCH (21:39)
[2020-05-09] MEDS: PANTOPRAZOLE SODIUM 40 MG VIAL IV SCH (21:39)
[2020-05-09] MEDS: PROMETHAZINE HCL INJ 25 MG/1 ML VIAL IV PRN (21:40)
[2020-05-10] MEDS: POTASSI CL 40 MEQ/NS 1L 1,000 ML IV PRN (02:09)
[2020-05-10 05:35] LABS: HEMATOCRIT 32.6 % (36.0-47.0); MEAN CORPUSCULAR HEMOGLOBIN 31.6 pg (27.0-33.4); MEAN CORPUSCULAR HGB CONC 33.9 g/dL (32.0-36.0); MEAN CORPUSCULAR VOLUME 93 fl (80-97); PLATELET COUNT 375 10^3/uL (150-450); RED BLOOD COUNT 3.49 10^6/uL (3.72-5.28); WHITE BLOOD COUNT 4.5 10^3/uL (4.0-10.5)
[2020-05-10] MEDS: METHYLPREDNISOLONE INJ 40 MG/1 ML SDV IV SCH ×3 (05:52→21:22)
[2020-05-10 06:05] LABS: ALBUMIN 3.3 g/dL (3.5-5.0); ALKALINE PHOSPHATASE 67 U/L (38-126); ANION GAP 7 (5-19); ASPARTATE AMINO TRANSFERASE 19 U/L (14-36); BILIRUBIN,DIRECT 0.1 mg/dL (0.0-0.4); BILIRUBIN,TOTAL 0.3 mg/dL (0.2-1.3); BLOOD UREA NITROGEN 4 mg/dL (7-20); CALCIUM 8.8 mg/dL (8.4-10.2); CARBON DIOXIDE 24 mmol/L (22-30); CHLORIDE 110 mmol/L (98-107); GLUCOSE 243 mg/dL (75-110); TOTAL PROTEIN 6.5 g/dL (6.3-8.2)
[2020-05-10 06:25] LABS: POTASSIUM 5.4 mmol/L (3.6-5.0)
[2020-05-10 06:43] LABS: ERYTHROCYTE SEDIMENTATION RATE 95 mm/hr (0-30)
[2020-05-10] MEDS: INSULIN LISPRO 100 UNIT/ML 3 ML VIAL SUBCUT SCH ×4 (07:56→21:23)
[2020-05-10 09:50] LABS: C DIFFICILE GDH NEGATIVE (NEGATIVE)
[2020-05-10] MEDS ORDERED: INSULIN GLARGINE,HUM.REC.ANLOG 1,000 UNIT/10 ML VIAL SUBCUT SCH (10:00)
[2020-05-10] MEDS: FLUTICASONE NASAL SPRAY 50 MCG/SPRY 120 SPRAY/16 GM NAREB SCH (11:31)
[2020-05-10] MEDS: ENOXAPARIN SODIUM INJ 40 MG/0.4 ML DISP.SYRIN SUBCUT SCH (11:31)
[2020-05-10 12:50] LABS: INTERNATIONAL RATION (INR) 1.05; PROTHROMBIN TIME 13.9 SEC (11.4-15.4)
[2020-05-10] MEDS ORDERED: LIDOCAINE 1% INJ-PF (10 MG/ML) 30 ML SDV ONE (14:01)
[2020-05-10] MEDS ORDERED: LIDOCAINE 1% INJ-PF (10 MG/ML) 30 ML SDV INJ PRN (14:09)
--- NOTE | 2020-05-10 14:30 | PDOC PROGRESS REPORT ---
Subjective Date:: 05/10/20 Subjective:: NAEO. She continues to have 10+ BM per day. Abdominal pain is improved and oral intake is improving. Reason For Visit: ACUTE PANCREATITIS Physical Exam Vital Signs: Temp Pulse Resp BP Pulse Ox 97.8 F 89 17 113/67 95 05/10/20 08:41 05/10/20 08:19 05/10/20 08:19 05/10/20 08:19 05/10/20 08:19 Intake & Output 05/09/20 05/10/20 05/11/20 06:59 06:59 06:59 Intake Total 1200 3480 Balance 1200 3480 Weight 92.7 kg 94.8 kg General appearance: PRESENT: no acute distress, cooperative Head exam: PRESENT: atraumatic Eye exam: ABSENT: scleral icterus Mouth exam: PRESENT: moist Throat exam: ABSENT: post pharyngeal erythema Neck exam: ABSENT: JVD Respiratory exam: PRESENT: clear to auscultation ned, unlabored Cardiovascular exam: PRESENT: RRR GI/Abdominal exam: PRESENT: normal bowel sounds, soft. ABSENT: distended, firm, guarding, rebound, rigid, tenderness Extremities exam: ABSENT: pedal edema Neurological exam: PRESENT: alert, awake Psychiatric exam: PRESENT: appropriate affect Skin exam: ABSENT: jaundice Results Laboratory Results: 05/10/20 05:20 05/10/20 05:20 05/10/20 05/10/20 05:20 05:20 WBC 4.5 RBC 3.49 L Hgb 11.0 L Hct 32.6 L MCV 93 MCH 31.6 MCHC 33.9 RDW 14.0 Plt Count 375 Sodium 141.0 Potassium 5.4 H D Chloride 110 H Carbon Dioxide 24 Anion Gap 7 BUN 4 L Creatinine 0.68 Est GFR ( Amer) > 60 Glucose 243 H Calcium 8.8 Magnesium 2.1 Total Bilirubin 0.3 AST 19 Alkaline Phosphatase 67 Total Protein 6.5 Albumin 3.3 L 05/08/20 04:08 NT-Pro-B Natriuret Pep 65 Impressions: Abdomen/Pelvis CT 05/07/20 14:07 IMPRESSION: 1. Minimal peripancreatic stranding compatible with acute interstitial pancreatitis. No findings to suggest pancreatic necrosis. No significant collection. 2. Decompressed descending and rectosigmoid colon with mild diffuse wall thickening. Recommend correlation for evidence of colitis. 3. Hepatic steatosis. Cholecystectomy. Assessment and Plan - Diagnosis (1) Ulcerative colitis, acute Qualifiers: Digestive disease complication type: other complication Qualified Code(s): K51.918 - Ulcerative colitis, unspecified with other complication Is this a current diagnosis for this admission?: Yes (2) Obesity (BMI 30-39.9) Is this a current diagnosis for this admission?: Yes (3) Anemia Is this a current diagnosis for this admission?: Yes (4) Hyperglycemia Is this a current diagnosis for this admission?: Yes (5) Hypokalemia Is this a current diagnosis for this admission?: Yes (6) Hyponatremia Is this a current diagnosis for this admission?: Yes (7) DM2 (diabetes mellitus, type 2) Is this a current diagnosis for this admission?: Yes (8) Difficult intravenous access Is this a current diagnosis for this admission?: Yes - Plan Summary Summary: Mrs. JAYLYN AUSTIN is a 49 year old female with PMH of ulcerative colitis who presented with crampy abdominal pain, 10+ bloody BM per day x10 days and recent onset of nausea/vomiting x4 days. Patient has history of chronic diarrhea sec ondary to ulcerative colitis, but normally has 5-6 BM/day. 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 She was just recently diagnosed with UC a couple months ago, and underwent EGD/colonoscopy with Dr. Parks at that time. She has been taking mesalamine faithfully TID for about 6 weeks and has no prior history of steroid usage. She has had no sick contacts; no one at home has had vomiting/diarrhea. She denies fevers/chills. Acute, Severe Ulcerative Colitis Flare: on admission, she was initially started on IVF, pain and anti-emetic medications due to concern for possible bazan creatitis. Her lipase was elevated at 924. She has no history of ETOH usage, is s/p remote cholecystectomy and has normal triglycerides. CT A/P on admission was notable for "minimal peripancreatic stranding" as well as "decompressed descending and rectosigmoid colon with mild diffuse wall thickening." On 05/09, she had been receiving treatment for possible pancreatitis x3 days and her symptoms had continued to get worse. Given that she was having 10+ bloody BM per day, and there was evidence of colitis on her initial CT, she met criteria for acute severe UC flare with her bloody stool frequency, anemia and elevated CRP, so she was started on treatment with steroids on 05/09. - She is at risk for developing fulminant UC and should start having serial abdominal XR if she develops worsening abdominal pain or distention. She had no evidence of bowel dilation on admission CT. Abdominal examination today is benign, soft, with no tenderness/rebound/guarding. - She has no peritoneal signs, fever and does not meet the criteria for fulminant colitis or toxic megacolon, so will continue to hold off on antibiotics for now. - BCx, stool culture pending - C diff negative - avoid all anti-motility agents and minimize opioids as much as possible (due to the risk of ileus) - hold home mesalamine - continue methylprednisolone 20 mg IV Q8H + PPI therapy (D1: 05/09) - advance diet as tolerated - unfortunately, we do not have GI flight communications specialist here at [place], but I will reach out to Dr. Parks on Monday to discuss further rec's Normocytic Anemia: likely combination of anemia of chronic disease and chronic blood loss - hgb has been stable between - this admission - transfuse for goal hgb >7 Dehydration: due to diarrhea and poor oral intake - resolved with IVF Hypokalemia: due to diarrhea and poor oral intake - resolved with IV and PO repletion Hypovolemic Hyponatremia: due to diarrhea and poor oral intake - resolved with IVF DM2: HbA1c 7.0% - encourage diet, exercise and weight loss - hold off on metformin initiation given chronic diarrhea - SSI while inpatient - start Lantus 10 units daily (glucose elevated in the s/o steroid usage) Obesity (BMI 36) - encourage diet, exercise and weight loss Lack of IV access - surgery consulted for central line placement DVT ppx: Lovenox - Time Time Spent with patient: 35 or more minutes Anticipated Discharge Disposition: Home, Self Care Anticipated Discharge Timeframe: within 48 hours
[2020-05-10] MEDS: PANTOPRAZOLE SODIUM 40 MG VIAL IV SCH ×2 (16:00→21:22)
--- NOTE | 2020-05-10 16:02 | RADIOLOGY REPORT (SQ) ---
EXAM DESCRIPTION: CHEST SINGLE VIEW IMAGES COMPLETED DATE/TIME: 05/10/2020 3:41 pm REASON FOR STUDY: CENTRAL LINE PLACEMENT COMPARISON: None. EXAM PARAMETERS: NUMBER OF VIEWS: One view. TECHNIQUE: Single frontal radiographic view of the chest acquired. RADIATION DOSE: NA LIMITATIONS: None. FINDINGS: LUNGS AND PLEURA: No opacities, masses or pneumothorax. No pleural effusion. MEDIASTINUM AND HILAR STRUCTURES: No masses. Contour normal. HEART AND VASCULAR STRUCTURES: Cardiomegaly. Normal vasculature. BONES: No acute findings. HARDWARE: None in the chest. OTHER: Left side central line tip overlying SVC. IMPRESSION: Good position of central line. No pneumothorax. TECHNICAL DOCUMENTATION: JOB ID: [id number] 2010 [employer]- All Rights Reserved Reading location - IP/workstation name: [email or web address]
--- NOTE | 2020-05-10 19:46 | Operative Report ---
Operative Report DATE OF SURGERY: 05/10/20 PREOPERATIVE DIAGNOSIS: Poor peripheral veins for IV access POSTOPERATIVE DIAGNOSIS: Same OPERATION: Placement of left internal jugular vein triple-lumen catheter under ultrasound guidance SURGEON: DONNA FENTON ANESTHESIA: Local TISSUE REMOVED OR ALTERED: None COMPLICATIONS: None ESTIMATED BLOOD LOSS: 5 cc QUANTITATIVE BLOOD LOSS: 5 INTRAOPERATIVE FINDINGS: Normal internal jugular vein by ultrasound PROCEDURE: After informed consent was obtained patient was placed in Trendelenburg position and the left neck prepped and draped in the usual sterile fashion. Local anesthesia infiltrated over the internal jugular vein noted on ultrasound. The internal jugular vein was then percutaneously punctured and the backbleeding was noted to be nonpulsatile and dark blood noted. A guidewire was then placed through the needle towards the superior vena cava and the needle subsequently pulled out. The insertion site was then dilated. Next a triple-lumen catheter was then inserted through the guidewire to a distance of about 18 cm. The guidewire was then removed. All the 3 ports aspirated blood easily and instilled saline easily. The catheter was then anchored to the skin with 3-0 silk. A Biopatch placed at the insertion site and a transparent sterile dressing placed over the Biopatch and catheter. A chest x-ray was then obtained and showed the catheter in good position with no pneumothorax. Patient tolera linda procedure well.
[2020-05-10] MEDS: MORPHINE SULFATE 10 MG/ML INJ IV PRN (21:22)
[2020-05-11] MEDS: METHYLPREDNISOLONE INJ 40 MG/1 ML SDV IV SCH ×3 (05:06→21:08)
[2020-05-11 06:00] LABS: ANION GAP 6 (5-19); BLOOD UREA NITROGEN 3 mg/dL (7-20); CALCIUM 8.8 mg/dL (8.4-10.2); CARBON DIOXIDE 25 mmol/L (22-30); CHLORIDE 111 mmol/L (98-107); GLUCOSE 194 mg/dL (75-110); POTASSIUM 5.2 mmol/L (3.6-5.0)
[2020-05-11] MEDS: INSULIN LISPRO 100 UNIT/ML 3 ML VIAL SUBCUT SCH ×4 (07:57→21:07)
[2020-05-11] MEDS ORDERED: MESALAMINE 4 GM/60 ML ENEMA PR SCH (10:00)
[2020-05-11] MEDS: NORMAL SALINE 1000 ML 1,000 ML IV PRN ×2 (11:18→21:14)
[2020-05-11] MEDS: PANTOPRAZOLE SODIUM 40 MG VIAL IV SCH ×2 (11:18→21:08)
[2020-05-11] MEDS: FLUTICASONE NASAL SPRAY 50 MCG/SPRY 120 SPRAY/16 GM NAREB SCH (11:19)
[2020-05-11] MEDS: ENOXAPARIN SODIUM INJ 40 MG/0.4 ML DISP.SYRIN SUBCUT SCH (11:19)
[2020-05-11] MEDS: MESALAMINE 1.2 GM TABLET.DR PO SCH (11:19)
[2020-05-11] MEDS: INSULIN GLARGINE,HUM.REC.ANLOG 1,000 UNIT/10 ML VIAL SUBCUT SCH (11:22)
--- NOTE | 2020-05-11 17:12 | PDOC PROGRESS REPORT ---
Subjective Date:: 05/11/20 Subjective:: abdominal pain is much improved she had 14 BM in the last 24 hours, mostly bloody with 2-3 of them being predominately mucous she has been tolerating a full liquid diet without N/V no fevers/chills Reason For Visit: ACUTE PANCREATITIS Physical Exam Vital Signs: Temp Pulse Resp BP Pulse Ox 97.9 F 85 16 131/74 H 96 05/11/20 11:28 05/11/20 11:28 05/11/20 11:28 05/11/20 11:28 05/11/20 11:28 Intake & Output 05/10/20 05/11/20 05/12/20 06:59 06:59 06:59 Intake Total 3480 2454 120 Balance 3480 2454 120 Weight 94.8 kg 95.5 kg 95.5 kg General appearance: PRESENT: no acute distress, cooperative Eye exam: ABSENT: scleral icterus Mouth exam: PRESENT: moist Throat exam: ABSENT: post pharyngeal erythema Neck exam: ABSENT: JVD Respiratory exam: PRESENT: clear to auscultation ned, unlabored Cardiovascular exam: PRESENT: RRR GI/Abdominal exam: PRESENT: normal bowel sounds, soft. ABSENT: distended, firm, guarding, mass, rebound, rigid, tenderness Rectal exam: PRESENT: deferred Gentrourinary exam: ABSENT: indwelling catheter Extremities exam: ABSENT: pedal edema Neurological exam: PRESENT: alert, awake, oriented to person, oriented to place, oriented to time, oriented to situation Psychiatric exam: PRESENT: appropriate affect Skin exam: ABSENT: rash Results Laboratory Results: 05/10/20 05:20 05/11/20 05:15 05/11/20 05:15 Sodium 142.2 Potassium 5.2 H Chloride 111 H Carbon Dioxide 25 Anion Gap 6 BUN 3 L Creatinine 0.63 Est GFR ( Amer) > 60 Glucose 194 H Calcium 8.8 05/09/20 15:05 Stool - Stool - Final 05/09/20 15:05 Stool - Stool Stool Culture - Final NO SALMONELLA, SHIGELLA, CAMPYLOBACTER, OR E.COLI 0157 RECOVERED. NEGATIVE FOR SHIGA TOXINS 1&2. 05/08/20 04:08 NT-Pro-B Natriuret Pep 65 Impressions: Abdomen/Pelvis CT 05/07/20 14:07 IMPRESSION: 1. Minimal peripancreatic stranding compatible with acute interstitial pancreatitis. No findings to suggest pancreatic necrosis. No significant collection. 2. Decompressed descending and rectosigmoid colon with mild diffuse wall thickening. Recommend correlation for evidence of colitis. 3. Hepatic steatosis. Cholecystectomy. Chest X-Ray 05/10/20 00:00 IMPRESSION: Good position of central line. No pneumothorax. Assessment and Plan - Diagnosis (1) Ulcerative colitis, acute Qualifiers: Digestive disease complication type: other complication Qualified Code(s): K51.918 - Ulcerative colitis, unspecified with other complication Is this a current diagnosis for this admission?: Yes (2) Obesity (BMI 30-39.9) Is this a current diagnosis for this admission?: Yes (3) Anemia Is this a current diagnosis for this admission?: Yes (4) Hyperglycemia Is this a current diagnosis for this admission?: Yes (5) Hypokalemia Is this a current diagnosis for this admission?: Yes (6) Hyponatremia Is this a current diagnosis for this admission?: Yes (7) DM2 (diabetes mellitus, type 2) Is this a current diagnosis for this admission?: Yes (8) Difficult intravenous access Is this a current diagnosis for this admission?: Yes - Plan Summary Summary: Mrs. JAYLYN AUSTIN is a 49 year old female with PMH of ulcerative colitis who presented with crampy abdominal pain, 10+ bloody BM per day x10 days and recent onset of nausea/vomiting x4 days. Patient has history of chronic diarrhea secondary to ulcerative colitis, but normally has 5-6 BM/day. 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 She was just recently diagnosed with UC a couple months ago, and underwent EGD/colonoscopy with Dr. Parks at that time. She has been taking mesalamine faithfully TID for about 6 weeks and has no prior history of steroid usage. She has had no sick contacts; no one at home has had vomiting/diarrhea. She denies fevers/chills. Acute, Severe Ulcerative Colitis Flare: on admission, she was initially started on IVF, pain and anti-emetic medications due to concern for possible pancreatit is. Her lipase was elevated at 924. She has no history of ETOH usage, is s/p remote cholecystectomy and has normal triglycerides. CT A/P on admission was notable for "minimal peripancreatic stranding" as well as "decompressed descending and rectosigmoid colon with mild diffuse wall thickening." On 05/09, she had been receiving treatment for possible pancreatitis x3 days and her symptoms had continued to get worse. Given that she was having 10+ bloody BM per day, and there was evidence of colitis on her initial CT, she met criteria for acute severe UC flare with her bloody stool frequency, anemia and elevated CRP, so she was started on treatment with steroids on 05/09. ESR/CRP very elevated. - She is at risk for developing fulminant UC and should start having serial abdominal XR if she develops worsening abdominal pain or distention. She had no evidence of bowel dilation on admission CT. Abdominal examination today is benign, soft, with no tenderness/rebound/guarding. Her pain is improved with steroids but she continues to have 14 BM in the last 24 hours. - She has no peritoneal signs, fever and does not meet the criteria for fulminant colitis or toxic megacolon, so will continue to hold off on antibiotics for now. - BCx, C diff, stool culture negative - advance diet as tolerated - avoid all anti-motility agents and minimize opioids as much as possible (due to the risk of ileus) - continue methylprednisolone 20 mg IV Q8H + PPI therapy (D1: 05/09) - discussed with Dr. Parks on 05/11, who recommended to start PO/IN mesalamine as well Normocytic Anemia: likely combination of anemia of chronic disease and chronic blood loss - hgb has been stable between 10-11 this admission - transfuse for goal hgb >7 Dehydration: due to diarrhea and poor oral intake - resolved with IVF Hypokalemia: due to diarrhea and poor oral intake - resolved with IV and PO repletion Hypovolemic Hyponatremia: due to diarrhea and poor oral intake - resolved with IVF DM2: HbA1c 7.0% - encourage diet, exercise and weight loss - hold off on metformin initiation given chronic diarrhea - SSI while inpatient - increase Lantus 10-->15 units daily (glucose elevated in the s/o steroids) - DM educator and drawing kiln supervisor consulted Obesity (BMI 37) - encourage diet, exercise and weight loss Lack of IV access - surgery consulted for central line placement on 05/10 DVT ppx: Lovenox - Time Time Spent with patient: 35 or more minutes Anticipated Discharge Disposition: Home, Self Care Anticipated Discharge Timeframe: within 72 hours
[2020-05-12] MEDS: METHYLPREDNISOLONE INJ 40 MG/1 ML SDV IV SCH ×3 (05:11→21:03)
[2020-05-12] MEDS: INSULIN LISPRO 100 UNIT/ML 3 ML VIAL SUBCUT SCH ×4 (07:41→21:03)
[2020-05-12] MEDS: NORMAL SALINE 1000 ML 1,000 ML IV PRN ×2 (07:41→17:02)
[2020-05-12] MEDS: MESALAMINE 1.2 GM TABLET.DR PO SCH (07:41)
[2020-05-12] MEDS: INSULIN GLARGINE,HUM.REC.ANLOG 1,000 UNIT/10 ML VIAL SUBCUT SCH (10:15)
[2020-05-12] MEDS: FLUTICASONE NASAL SPRAY 50 MCG/SPRY 120 SPRAY/16 GM NAREB SCH (10:15)
[2020-05-12] MEDS: ENOXAPARIN SODIUM INJ 40 MG/0.4 ML DISP.SYRIN SUBCUT SCH (10:15)
[2020-05-12] MEDS: PANTOPRAZOLE SODIUM 40 MG VIAL IV SCH (10:15)
--- NOTE | 2020-05-12 12:31 | PDOC PROGRESS REPORT ---
Subjective Date:: 05/12/20 Subjective:: The patient feels slightly better. She is still having 12-14 bowel movements a day. She reports less blood in the stool. Her abdominal pain is improved. The abdominal pain was the primary reason she presented to the emergency department. Ulcerative colitis was diagnosed in January of this year. Reason For Visit: ACUTE PANCREATITIS Physical Exam Vital Signs: Temp Pulse Resp BP Pulse Ox 98.3 F 85 16 132/76 H 100 05/12/20 10:44 05/12/20 10:44 05/12/20 10:44 05/12/20 10:44 05/12/20 10:44 Intake & Output 05/11/20 05/12/20 05/13/20 06:59 06:59 06:59 Intake Total 2454 1553 1000 Balance 2454 1553 1000 Weight 95.5 kg 83.6 kg General appearance: PRESENT: no acute distress, cooperative, well-developed Head exam: PRESENT: atraumatic, normocephalic Ear exam: PRESENT: normal external ear exam. ABSENT: bleeding, drainage Mouth exam: PRESENT: moist, tongue midline Respiratory exam: PRESENT: clear to auscultation ned, symmetrical, unlabored. ABSENT: prolonged expiratory phas, rales, rhonchi, tachypnea, wheezes Cardiovascular exam: PRESENT: RRR, +S1, +S2. ABSENT: bradycardia, diastolic murmur, irregular rhythm, systolic murmur, tachycardia GI/Abdominal exam: PRESENT: normal bowel sounds, soft. ABSENT: distended, guarding, tenderness Rectal exam: PRESENT: deferred Gentrourinary exam: ABSENT: indwelling catheter Extremities exam: ABSENT: pedal edema Musculoskeletal exam: PRESENT: ambulatory, normal inspection. ABSENT: deformity, dislocation Neurological exam: PRESENT: alert, awake, oriented to person, oriented to place, oriented to time, oriented to situation, CN II-XII grossly intact. ABSENT: altered Psychiatric exam: PRESENT: appropriate affect. ABSENT: agitated, anxious Focused psych exam: ABSENT: delusional, paranoid, restlessness Skin exam: PRESENT: dry, normal color, warm. ABSENT: rash Results Laboratory Results: 05/10/20 05:20 05/11/20 05:15 05/09/20 15:05 Stool - Stool - Final 05/09/20 15:05 Stool - Stool Stool Culture - Final NO SALMONELLA, SHIGELLA, CAMPYLOBACTER, OR E.COLI 0157 RECOVERED. NEGATIVE FOR SHIGA TOXINS 1&2. 05/08/20 04:08 NT-Pro-B Natriuret Pep 65 Impressions: Abdomen/Pelvis CT 05/07/20 14:07 IMPRESSION: 1. Minimal peripancreatic stranding compatible with acute interstitial pancreatitis. No findings to suggest pancreatic necrosis. No sign ificant collection. 2. Decompressed descending and rectosigmoid colon with mild diffuse wall thicke santo. Recommend correlation for evidence of colitis. 3. Hepatic steatosis. Cholecystectomy. Chest X-Ray 05/10/20 00:00 IMPRESSION: Good position of central line. No pneumothorax. Assessment and Plan - Diagnosis (1) Ulcerative colitis, acute Qualifiers: Digestive disease complication type: other complication Qualified Code(s): K51.918 - Ulcerative colitis, unspecified with other complication Is this a current diagnosis for this admission?: Yes (2) Obesity (BMI 30-39.9) Is this a current diagnosis for this admission?: Yes (3) Anemia Is this a current diagnosis for this admission?: Yes (4) DM2 (diabetes mellitus, type 2) Is this a current diagnosis for this admission?: Yes (5) Hypokalemia Is this a current diagnosis for this admission?: Yes (6) Hyponatremia Is this a current diagnosis for this admission?: Yes (7) Acute pancreatitis Qualifiers: Pancreatitis type: unspecified pancreatitis type Acute pancreatitis complication: unspecified Qualified Code(s): K85.90 - Acute pancreatitis without necrosis or infection, unspecified Is this a current diagnosis for this admission?: Yes (8) HTN (hypertension) Is this a current diagnosis for this admission?: No (9) Difficult intravenous access Is this a current diagnosis for this admission?: Yes - Plan Summary Summary: Mrs. JAYLYN AUSTIN is a 49 year old female with PMH of ulcerative colitis who presented with crampy abdominal pain, 10+ bloody BM per day x10 days and recent onset of nausea/vomiting x4 days. Patient has history of chronic diarrhea secondary to ulcerative colitis, but normally has 5-6 BM/day. Dr. Parks is her scientific advisor. She was just recently diagnosed with UC a couple months ago, and underwent EGD/colonoscopy with Dr. Parks at that time. She has been taking mesalamine faithfully TID for about 6 weeks and has no prior history of steroid usage. She has had no sick contacts; no one at home has had vomiting/diarrhea. She denies fevers/chills. Acute, Severe Ulcerative Colitis Flare: on admission, she was initially started on IVF, pain and anti-emetic medications due to concern for possible pancreatitis. Her lipase was elevated at 924. She has no history of ETOH usage, is s/p remote cholecystectomy and has normal triglycerides. CT A/P on admission was notable for "minimal peripancreatic stranding" as well as "decompressed descending and rectosigmoid colon with mild diffuse wall thickening." On 05/09, she had been receiving treatment for possible pancreatitis x3 days and her symptoms had continued to get worse. Given that she was having 10+ bloody BM per day, and there was evidence of colitis on her initial CT, she met criteria for acute severe UC flare with her bloody stool frequency, anemia and elevated CRP, so she was started on treatment with steroids on 05/09. ESR/CRP very elevated. - She is at risk for developing fulminant UC and should start having serial abdominal XR if she develops worsening abdominal pain or distention. She had no evidence of bowel dilation on admission CT. Abdominal examination today is benign, soft, with no tenderness/rebound/guarding. Her pain is improved with steroids but she continues to have 14 BM in the last 24 hours. - She has no peritoneal signs, fever and does not meet the criteria for fulminant colitis or toxic megacolon, so will continue to hold off on antibiotics for now. - BCx, C diff, stool culture negative - advance diet as tolerated - avoid all anti-motility agents and minimize opioids as much as possible (due to the risk of ileus) - continue methylprednisolone 20 mg IV Q8H + PPI therapy (D1: 05/09) - discussed with Dr. Parks on 05/11, who recommended to start PO/NM mesalamine as well Normocytic Anemia: likely combination of anemia of chronic disease and chronic blood loss - hgb has been stable between 10-11 this admission - transfuse for goal hgb >7 Dehydration: due to diarrhea and poor oral intake - resolved with IVF Hypokalemia: due to diarrhea and poor oral intake - resolved with IV and PO repletion Hypovolemic Hyponatremia: due to diarrhea and poor oral intake - resolved with IVF DM2: HbA1c 7.0% - encourage diet, exercise and weight loss - hold off on metformin initiation given chronic diarrhea - SSI while inpatient - increase Lantus 10-->15 units daily (glucose elevated in the s/o steroids) - DM educator and pilot supervisor consulted Obesity (BMI 37) - encourage diet, exercise and weight loss Lack of IV access - surgery consulted for central line placement on 05/10 DVT ppx: Lovenox 05/12/2020 Patient is on oral and rectal mesalamine. She is also receiving steroids for her ulcerative colitis. Still with multiple bowel movements. She thinks it is beginning to improve. Continue current regimen. Try to replace fluid losses from excessive stooling. Surprisingly potassium several days ago was elevated. Potassium supplements discontinued. Continue normal saline. Recheck electrolytes tomorrow. We will start introduce glipizide and possibly Januvia and try to avoid insulin at this time. Eventually consider Metformin once the colitis is stable. I will decrease the Lantus back to 10 units with the addition of glipizide 5 mg twice daily. Hyponatremia-recheck electrolytes tomorrow Anemia-hemoglobin has been stable. Recheck tomorrow. Patient reports less blood in the stool. Central line continues to function well. - Time Time Spent with patient: 15-24 minutes Medications reviewed and adjusted accordingly: Yes Anticipated Discharge Disposition: Home, Self Care Anticipated Discharge Timeframe: within 72 hours
[2020-05-12] MEDS: MESALAMINE 4 GM/60 ML ENEMA PR SCH (21:06)
[2020-05-12] MEDS: PROMETHAZINE HCL INJ 25 MG/1 ML VIAL IV PRN (22:22)
[2020-05-13] MEDS: METHYLPREDNISOLONE INJ 40 MG/1 ML SDV IV SCH ×3 (05:16→22:11)
[2020-05-13] MEDS: NORMAL SALINE 1000 ML 1,000 ML IV PRN (05:54)
[2020-05-13] MEDS: INSULIN LISPRO 100 UNIT/ML 3 ML VIAL SUBCUT SCH ×4 (07:44→23:53)
[2020-05-13] MEDS: MESALAMINE 1.2 GM TABLET.DR PO SCH (07:44)
[2020-05-13] MEDS ORDERED: GLIPIZIDE 5 MG TABLET PO SCH (08:00)
[2020-05-13 08:25] LABS: HEMATOCRIT 31.8 % (36.0-47.0); HEMOGLOBIN 10.9 g/dL (12.0-15.5); MEAN CORPUSCULAR HEMOGLOBIN 32.2 pg (27.0-33.4); MEAN CORPUSCULAR HGB CONC 34.3 g/dL (32.0-36.0); MEAN CORPUSCULAR VOLUME 94 fl (80-97); PLATELET COUNT 314 10^3/uL (150-450); RED BLOOD COUNT 3.39 10^6/uL (3.72-5.28); RED CELL DISTRIBUTION WIDTH 14.7 % (11.5-14.0); WHITE BLOOD COUNT 11.6 10^3/uL (4.0-10.5)
[2020-05-13 08:37] LABS: BLOOD UREA NITROGEN 8 mg/dL (7-20); C-REACTIVE PROTEIN 22.5 mg/L (<10.0); CALCIUM 8.9 mg/dL (8.4-10.2); CARBON DIOXIDE 29 mmol/L (22-30); CHLORIDE 107 mmol/L (98-107); GLUCOSE 169 mg/dL (75-110)
[2020-05-13 08:40] LABS: ANION GAP 3 (5-19)
[2020-05-13 09:15] LABS: ABSOLUTE LYMPHOCYTES# (MANUAL) 0.5 10^3/uL (0.5-4.7); ABSOLUTE MONOCYTES # (MANUAL) 0.9 10^3/uL (0.1-1.4); ANISOCYTOSIS SLIGHT; BASOPHILS % (MANUAL) 0 % (0-2); EOSINOPHILS % (MANUAL) 0 % (0-6); LYMPHOCYTES % (MANUAL) 4 % (13-45); MONOCYTES % (MANUAL) 8 % (3-13); PLATELET COMMENT ADEQUATE; SEGMENTED NEUTROPHILS % (MAN) 88 % (42-78); TOTAL CELLS COUNTED 100
[2020-05-13] MEDS: FLUTICASONE NASAL SPRAY 50 MCG/SPRY 120 SPRAY/16 GM NAREB SCH (09:33)
[2020-05-13] MEDS: ENOXAPARIN SODIUM INJ 40 MG/0.4 ML DISP.SYRIN SUBCUT SCH (09:34)
[2020-05-13] MEDS ORDERED: INSULIN GLARGINE,HUM.REC.ANLOG 1,000 UNIT/10 ML VIAL SUBCUT SCH (10:00)
--- NOTE | 2020-05-13 12:00 | PDOC PROGRESS REPORT ---
Subjective Date:: 05/13/20 Subjective:: Patient had increased abdominal pain last night. Her lipase level is elevated t his morning. Reason For Visit: ACUTE PANCREATITIS Physical Exam Vital Signs: Temp Pulse Resp BP Pulse Ox 98.2 F 85 16 119/63 96 05/13/20 11:12 05/13/20 11:12 05/13/20 11:12 05/13/20 11:12 05/13/20 11:12 Intake & Output 05/12/20 05/13/20 05/14/20 06:59 06:59 06:59 Intake Total 1553 3535 Output Total 3 Balance 1553 3532 Weight 83.6 kg General appearance: PRESENT: cooperative, mild distress, well-developed Head exam: PRESENT: atraumatic, normocephalic Eye exam: PRESENT: conjunctiva pink. ABSENT: scleral icterus Ear exam: PRESENT: normal external ear exam. ABSENT: bleeding, drainage Mouth exam: PRESENT: moist, tongue midline Respiratory exam: PRESENT: clear to auscultation ned, symmetrical, unlabored. ABSENT: prolonged expiratory phas, rales, rhonchi, tachypnea, wheezes Cardiovascular exam: PRESENT: RRR, +S1, +S2. ABSENT: bradycardia, diastolic murmur, irregular rhythm, systolic murmur, tachycardia GI/Abdominal exam: PRESENT: normal bowel sounds, soft, tenderness - Across the epigastrium. ABSENT: distended, guarding Rectal exam: PRESENT: deferred Gentrourinary exam: ABSENT: indwelling catheter Extremities exam: ABSENT: pedal edema Musculoskeletal exam: PRESENT: ambulatory, normal inspection. ABSENT: deformity, dislocation Neurological exam: PRESENT: alert, awake, oriented to person, oriented to place, oriented to time, oriented to situation, CN II-XII grossly intact. ABSENT: altered Psychiatric exam: PRESENT: appropriate affect. ABSENT: agitated, anxious Focused psych exam: ABSENT: delusional, paranoid, restlessness Skin exam: PRESENT: dry, warm, other - Slight facial flushing Results Laboratory Results: 05/13/20 07:43 05/13/20 07:43 05/13/20 05/13/20 07:43 07:43 WBC 11.6 H RBC 3.39 L Hgb 10.9 L Hct 31.8 L MCV 94 MCH 32.2 MCHC 34.3 RDW 14.7 H Plt Count 314 Seg Neutrophils % Not Reportable Sodium 139.3 Potassium 4.0 Chloride 107 Carbon Dioxide 29 Anion Gap 3 L BUN 8 Creatinine 0.68 Est GFR ( Amer) > 60 Glucose 169 H Calcium 8.9 Magnesium 1.9 C-Reactive Protein 22.5 H Lipase 1874.0 H 05/08/20 04:08 NT-Pro-B Natriuret Pep 65 Impressions: Abdomen/Pelvis CT 05/07/20 14:07 IMPRESSION: 1. Minimal peripancreatic stranding compatible with acute interstitial pancreatitis. No findings to suggest pancreatic necrosis. No significant collection. 2. Decompressed descending and rectosigmoid colon with mild diffuse wall thickening. Recommend correlation for evidence of colitis. 3. Hepatic steatosis. Cholecystectomy. Chest X-Ray 05/10/20 00:00 IMPRESSION: Good position of central line. No pneumothorax. Assessment and Plan - Diagnosis (1) Ulcerative colitis, acute Qualifiers: Digestive disease complication type: other complication Qualified Code(s): K51.918 - Ulcerative colitis, unspecified with other complication Is this a current diagnosis for this admission?: Yes (2) Obesity (BMI 30-39.9) Is this a current diagnosis for this admission?: Yes (3) Anemia Is this a current diagnosis for this admission?: Yes (4) DM2 (diabetes mellitus, type 2) Is this a current diagnosis for this admission?: Yes (5) Hypokalemia Is this a current diagnosis for this admission?: Yes (6) Hyponatremia Is this a current diagnosis for this admission?: Yes (7) Acute pancreatitis Qualifiers: Pancreatitis type: unspecified pancreatitis type Acute pancreatitis complication: unspecified Qualified Code(s): K85.90 - Acute pancreatitis wi thout necrosis or infection, unspecified Is this a current diagnosis for this admission?: Yes (8) HTN (hypertension) Is this a current diagnosis for this admission?: No (9) Difficult intravenous access Is this a current diagnosis for this admission?: Yes - Plan Summary Summary: Mrs. JAYLYN AUSTIN is a 49 year old female with PMH of ulcerative colitis who presented with crampy abdominal pain, 10+ bloody BM per day x10 days and recent onset of nausea/vomiting x4 days. Patient has history of chronic diarrhea secondary to ulcerative colitis, but normally has 5-6 BM/day. Dr. Parks is her kindergartner. She was just recently diagnosed with UC a couple months ago, and underwent EGD/colonoscopy with Dr. Parks at that time. She has been taking mesalamine faithfully TID for about 6 weeks and has no prior history of steroid usage. She has had no sick contacts; no one at home has had vomiting/diarrhea. She denies fevers/chills. Acute, Severe Ulcerative Colitis Flare: on admission, she was initially started on IVF, pain and anti-emetic medications due to concern for possible pancreatitis. Her lipase was elevated at 924. She has no history of ETOH usage, is s/p remote cholecystectomy and has normal triglycerides. CT A/P on admission was notable for "minimal peripancreatic stranding" as well as "decompressed descending and rectosigmoid colon with mild diffuse wall thickening." On 05/09, she had been receiving treatment for possible pancreatitis x3 days and her symptoms had continued to get worse. Given that she was having 10+ bloody BM per day, and there was evidence of colitis on her initial CT, she met criteria for acute severe UC flare with her bloody stool frequency, anemia and elevated CRP, so she was started on treatment with steroids on 05/09. ESR/CRP very elevated. - She is at risk for developing fulminant UC and should start having serial abdominal XR if she develops worsening abdominal pain or distention. She had no evidence of bowel dilation on admission CT. Abdominal examination today is benign, soft, with no tenderness/rebound/guarding. Her pain is improved with steroids but she continues to have 14 BM in the last 24 hours. - She has no peritoneal signs, fever and does not meet the criteria for fulminant colitis or toxic megacolon, so will continue to hold off on antibiotics for now. - BCx, C diff, stool culture negative - advance diet as tolerated - avoid all anti-motility agents and minimize opioids as much as possible (due to the risk of ileus) - continue methylprednisolone 20 mg IV Q8H + PPI therapy (D1: 05/09) - discussed with Dr. Parks on 05/11, who recommended to start PO/SD mesalamine as well Normocytic Anemia: likely combination of anemia of chronic disease and chronic blood loss - hgb has been stable between 10-11 this admission - transfuse for goal hgb >7 Dehydration: due to diarrhea and poor oral intake - resolved with IVF Hypokalemia: due to diarrhea and poor oral intake - resolved with IV and PO repletion Hypovolemic Hyponatremia: due to diarrhea and poor oral intake - resolved with IVF DM2: HbA1c 7.0% - encourage diet, exercise and weight loss - hold off on metformin initiation given chronic diarrhea - SSI while inpatient - increase Lantus 10-->15 units daily (glucose elevated in the s/o steroids) - DM educator and wet crown blocking operator consulted Obesity (BMI 37) - encourage diet, exercise and weight loss Lack of IV access - surgery consulted for central line placement on 05/10 DVT ppx: Lovenox 05/12/2020 Patient is on oral and rectal mesalamine. She is also receiving steroids for her ulcerative colitis. Still with multiple bowel movements. She thinks it is beginning to improve. Continue current regimen. Try to replace fluid losses from excessive stooling. Surprisingly potassium several days ago was elevated. Potassium supplements discontinued. Continue normal saline. Recheck electrolytes tomorrow. We will start introduce glipizide and possibly Januvia and try to avoid insulin at this time. Eventually consider Metformin once the colitis is stable. I will decrease the Lantus back to 10 units with the addition of glipizide 5 mg twice daily. Hyponatremia-recheck electrolytes tomorrow Anemia-hemoglobin has been stable. Recheck tomorrow. Patient reports less blood in the stool. Central line continues to function well. 05/13/2020 Lipase up to 1800. Patient is now n.p.o. Recheck lipase tomorrow. Inflammatory markers improved with steroids and mesalamine. Continue same. Sodium and potassium are now normal. Hemoglobin is 10.9. Continue to monitor laboratory studies - Time Time Spent with patient: 15-24 minutes Medications reviewed and adjusted accordingly: Yes Anticipated Discharge Disposition: Home, Self Care Anticipated Discharge Timeframe: within 72 hours
[2020-05-13] MEDS: RINGERS SOLUTION,LACTATED 1,000 ML IV PRN ×2 (14:15→23:55)
[2020-05-13] MEDS: PROMETHAZINE HCL INJ 25 MG/1 ML VIAL IV PRN (22:11)
[2020-05-13] MEDS: MESALAMINE 4 GM/60 ML ENEMA PR SCH (23:55)
[2020-05-14] MEDS: RINGERS SOLUTION,LACTATED 1,000 ML IV PRN ×3 (05:58→17:34)
[2020-05-14] MEDS: METHYLPREDNISOLONE INJ 40 MG/1 ML SDV IV SCH ×3 (05:59→21:45)
[2020-05-14 06:36] LABS: ABSOLUTE LYMPHOCYTES (AUTO) 0.7 10^3/uL (0.5-4.7); ABSOLUTE MONOCYTES (AUTO) 0.7 10^3/uL (0.1-1.4); ABSOLUTE NEUT (AUTO) 9.2 10^3/uL (1.7-8.2); BASOPHILS % (AUTO) 0.3 % (0-2); HEMATOCRIT 31.4 % (36.0-47.0); HEMOGLOBIN 10.8 g/dL (12.0-15.5); LYMPHOCYTES % (AUTO) 6.9 % (13-45); MEAN CORPUSCULAR HEMOGLOBIN 32.5 pg (27.0-33.4); MEAN CORPUSCULAR HGB CONC 34.4 g/dL (32.0-36.0); MEAN CORPUSCULAR VOLUME 94 fl (80-97); MONOCYTES % (AUTO) 6.2 % (3-13); PLATELET COUNT 307 10^3/uL (150-450); RED BLOOD COUNT 3.33 10^6/uL (3.72-5.28); RED CELL DISTRIBUTION WIDTH 14.9 % (11.5-14.0); SEGMENTED NEUTROPHILS % (AUTO) 86.6 % (42-78); TOTAL CELLS COUNTED % (AUTO) 100 %; WHITE BLOOD COUNT 10.6 10^3/uL (4.0-10.5)
[2020-05-14 06:55] LABS: ALKALINE PHOSPHATASE 55 U/L (38-126); ANION GAP 7 (5-19); ASPARTATE AMINO TRANSFERASE 30 U/L (14-36); BILIRUBIN,DIRECT 0.2 mg/dL (0.0-0.4); BILIRUBIN,TOTAL 0.5 mg/dL (0.2-1.3); BLOOD UREA NITROGEN 10 mg/dL (7-20); CALCIUM 8.9 mg/dL (8.4-10.2); CARBON DIOXIDE 30 mmol/L (22-30); CHLORIDE 105 mmol/L (98-107); GLUCOSE 135 mg/dL (75-110); POTASSIUM 4.2 mmol/L (3.6-5.0)
[2020-05-14] MEDS: INSULIN LISPRO 100 UNIT/ML 3 ML VIAL SUBCUT SCH ×5 (07:24→21:18)
[2020-05-14] MEDS: ENOXAPARIN SODIUM INJ 40 MG/0.4 ML DISP.SYRIN SUBCUT SCH (09:06)
[2020-05-14] MEDS: MESALAMINE 1.2 GM TABLET.DR PO SCH (09:06)
[2020-05-14] MEDS: FLUTICASONE NASAL SPRAY 50 MCG/SPRY 120 SPRAY/16 GM NAREB SCH (09:06)
--- NOTE | 2020-05-14 21:25 | PDOC PROGRESS REPORT ---
Subjective Date:: 05/14/20 Subjective:: Patient still with epigastric discomfort but slightly less than yesterday Reason For Visit: ACUTE PANCREATITIS Physical Exam Vital Signs: Temp Pulse Resp BP Pulse Ox 97.8 F 67 18 123/72 95 05/14/20 19:34 05/14/20 19:34 05/14/20 19:34 05/14/20 19:34 05/14/20 19:34 Intake & Output 05/13/20 05/14/20 05/15/20 06:59 06:59 06:59 Intake Total 3535 3073 1999 Output Total 3 Balance 3532 3073 1999 Weight 95 kg General appearance: PRESENT: no acute distress, cooperative, well-developed Head exam: PRESENT: atraumatic, normocephalic Eye exam: PRESENT: conjunctiva pink. ABSENT: scleral icterus Ear exam: PRESENT: normal external ear exam. ABSENT: bleeding, drainage Respiratory exam: PRESENT: clear to auscultation ned, symmetrical, unlabored. ABSENT: rales, rhonchi, tachypnea, wheezes Cardiovascular exam: PRESENT: RRR, +S1, +S2. ABSENT: bradycardia, diastolic murmur, irregular rhythm, systolic murmur, tachycardia GI/Abdominal exam: PRESENT: normal bowel sounds, soft, tenderness - Epigastric area. ABSENT: distended, guarding Rectal exam: PRESENT: deferred Gentrourinary exam: ABSENT: indwelling catheter Extremities exam: ABSENT: pedal edema Musculoskeletal exam: PRESENT: ambulatory, normal inspection. ABSENT: deformity, dislocation Neurological exam: PRESENT: alert, awake, oriented to person, oriented to place, oriented to time, oriented to situation, CN II-XII grossly intact. ABSENT: altered Psychiatric exam: PRESENT: appropriate affect. ABSENT: agitated, anxious Focused psych exam: ABSENT: delusional, paranoid, restlessness Results Laboratory Results: 05/14/20 06:20 05/14/20 06:20 05/14/20 05/14/20 06:20 06:20 WBC 10.6 H RBC 3.33 L Hgb 10.8 L Hct 31.4 L MCV 94 MCH 32.5 MCHC 34.4 RDW 14.9 H Plt Count 307 Seg Neutrophils % 86.6 H Sodium 141.6 Potassium 4.2 Chloride 105 Carbon Dioxide 30 Anion Gap 7 BUN 10 Creatinine 0.62 Est GFR ( Amer) > 60 Glucose 135 H Calcium 8.9 Magnesium 1.9 Total Bilirubin 0.5 AST 30 Alkaline Phosphatase 55 Total Protein 6.0 L Albumin 3.0 L Lipase 1730.4 H 05/09/20 15:05 Blood Blood Culture - Final NO GROWTH IN 5 DAYS 05/09/20 12:50 Blood Blood Culture - Final NO GROWTH IN 5 DAYS 05/08/20 04:08 NT-Pro-B Natriuret Pep 65 Impressions: Abdomen/Pelvis CT 05/07/20 14:07 IMPRESSION: 1. Minimal peripancreatic stranding compatible with acute in terstitial pancreatitis. No findings to suggest pancreatic necrosis. No significant collection. 2. Decompressed descending and rectosigmoid colon with mild diffuse wall thickening. Recommend correlation for evidence of colitis. 3. Hepatic steatosis. Cholecystectomy. Chest X-Ray 05/10/20 00:00 IMPRESSION: Good position of central line. No pneumothorax. Assessment and Plan - Diagnosis (1) Ulcerative colitis, acute Qualifiers: Digestive disease complication type: other complication Qualified Code(s): K51.918 - Ulcerative colitis, unspecified with other complication Is this a current diagnosis for this admission?: Yes (2) Obesity (BMI 30-39.9) Is this a current diagnosis for this admission?: Yes (3) Anemia Is this a current diagnosis for this admission?: Yes (4) DM2 (diabetes mellitus, type 2) Is this a current diagnosis for this admission?: Yes (5) Hypokalemia Is this a current diagnosis for this admission?: Yes (6) Hyponatremia Is this a current diagnosis for this admission?: Yes (7) Acute pancreatitis Qualifiers: Pancreatitis type: unspecified pancreatitis type Acute pancreatitis complication: unspecified Qualified Code(s): K85.90 - Acute pancreatitis without necrosis or infection, unspecified Is this a current diagnosis for this admission?: Yes (8) HTN (hypertension) Is this a current diagnosis for this admission?: No (9) Difficult intravenous access Is this a current diagnosis for this admission?: Yes - Plan Summary Summary: Mrs. JAYLYN AUSTIN is a 49 year old female with PMH of ulcerative colitis who presented with crampy abdominal pain, 10+ bloody BM per day x10 days and recent onset of nausea/vomiting x4 days. Patient has history of chronic diarrhea secondary to ulcerative colitis, but normally has 5-6 BM/day. Dr. Parks is her probate judge. She was just recently diagnosed with UC a couple months ago, and underwent EGD/colonoscopy with Dr. Parks at that time. She has been taking mesalamine faithfully TID for about 6 weeks and has no prior history of steroid usage. She has had no sick contacts; no one at home has had vomiting/diarrhea. She denies fevers/chills. Acute, Severe Ulcerative Colitis Flare: on admission, she was initially started on IVF, pain and anti-emetic medications due to concern for possible pancreatitis. Her lipase was elevated at 924. She has no history of ETOH usage, is s/p remote cholecystectomy and has normal triglycerides. CT A/P on admission was notable for "minimal peripancreatic stranding" as well as "decompressed descending and rectosigmoid colon with mild diffuse wall thickening." On 05/09, she had been receiving treatment for possible pancreatitis x3 days and her symptoms had continued to get worse. Given that she was having 10+ bloody BM per day, and there was evidence of colitis on her initial CT, she met criteria for acute severe UC flare with her bloody stool frequency, anemia and elevated CRP, so she was started on treatment with steroids on 05/09. ESR/CRP very elevated. - She is at risk for developing fulminant UC and should start having serial abdominal XR if she develops worsening abdominal pain or distention. She had no evidence of bowel dilation on admission CT. Abdominal examination today is benign, soft, with no tenderness/rebound/guarding. Her pain is improved with steroids but she continues to have 14 BM in the last 24 hours. - She has no peritoneal signs, fever and does not meet the criteria for fulminant colitis or toxic megacolon, so will continue to hold off on antibiotics for now. - BCx, C diff, stool culture negative - advance diet as tolerated - avoid all anti-motility agents and minimize opioids as much as possible (due to the risk of ileus) - continue methylprednisolone 20 mg IV Q8H + PPI therapy (D1: 05/09) - discussed with Dr. Parks on 05/11, who recommended to start PO/FL mesalamine as well Normocytic Anemia: likely combination of anemia of chronic disease and chronic blood loss - hgb has been stable between 10-11 this admission - transfuse for goal hgb >7 Dehydration: due to diarrhea and poor oral intake - resolved with IVF Hypokalemia: due to diarrhea and poor oral intake - resolved with IV and PO repletion Hypovolemic Hyponatremia: due to diarrhea and poor oral intake - resolved with IVF DM2: HbA1c 7.0% - encourage diet, exercise and weight loss - hold off on metformin initiation given chronic diarrhea - SSI while inpatient - increase Lantus 10-->15 units daily (glucose elevated in the s/o steroids) - DM educator and supervisor gate services consulted Obesity (BMI 37) - encourage diet, exercise and weight loss Lack of IV access - surgery consulted for central line placement on 05/10 DVT ppx: Lovenox 05/12/2020 Patient is on oral and rectal mesalamine. She is also receiving steroids for her ulcerative colitis. Still with multiple bowel movements. She thinks it is beginning to improve. Continue current regimen. Try to replace fluid losses from excessive stooling. Surprisingly potassium several days ago was elevated. Potassium supplements discontinued. Continue normal saline. Recheck electrolytes tomorrow. We will start introduce glipizide and possibly Januvia and try to avoid insulin at this time. Eventually consider Metformin once the colitis is stable. I will decrease the Lantus back to 10 units with the addition of glipizide 5 mg twice daily. Hyponatremia-recheck electrolytes tomorrow Anemia-hemoglobin has been stable. Recheck tomorrow. Patient reports less blood in the stool. Central line continues to function well. 05/13/2020 Lipase up to 1800. Patient is now n.p.o. Recheck lipase tomorrow. Inflammatory markers improved with steroids and mesalamine. Continue same. Sodium and potassium are now normal. Hemoglobin is 10.9. Continue to monitor laboratory studies 05/14/2020 Lipase is only slightly better at 1730. Continue n.p.o. diet and IV fluids. Recheck labs tomorrow. Continue to monitor electrolytes. Currently normal. Hypertension-blood pressures are acceptable Diabetes-diabetic medications decreased with patient being n.p.o. Continue Accu-Cheks and sliding scale. Patient has no abdominal pain tomorrow consider clear liquid diet with discharged within 48 hours - Time Time Spent with patient: Less than 15 minutes Medications reviewed and adjusted accordingly: Yes Anticipated Discharge Disposition: Home, Self Care Anticipated Discharge Timeframe: within 48 hours
[2020-05-14] MEDS: MESALAMINE 4 GM/60 ML ENEMA PR SCH (21:44)
[2020-05-15] MEDS: RINGERS SOLUTION,LACTATED 1,000 ML IV PRN ×4 (01:44→16:23)
[2020-05-15] MEDS: METHYLPREDNISOLONE INJ 40 MG/1 ML SDV IV SCH ×3 (05:30→21:17)
[2020-05-15 06:14] LABS: HEMATOCRIT 34.7 % (36.0-47.0); HEMOGLOBIN 11.7 g/dL (12.0-15.5); MEAN CORPUSCULAR HEMOGLOBIN 31.5 pg (27.0-33.4); MEAN CORPUSCULAR HGB CONC 33.6 g/dL (32.0-36.0); MEAN CORPUSCULAR VOLUME 94 fl (80-97); PLATELET COUNT 352 10^3/uL (150-450); RED CELL DISTRIBUTION WIDTH 14.5 % (11.5-14.0); WHITE BLOOD COUNT 10.1 10^3/uL (4.0-10.5)
[2020-05-15 06:37] LABS: ALBUMIN 3.4 g/dL (3.5-5.0); ALKALINE PHOSPHATASE 65 U/L (38-126); ANION GAP 9 (5-19); ASPARTATE AMINO TRANSFERASE 32 U/L (14-36); BILIRUBIN,DIRECT 0.2 mg/dL (0.0-0.4); BILIRUBIN,TOTAL 0.5 mg/dL (0.2-1.3); BLOOD UREA NITROGEN 14 mg/dL (7-20); CALCIUM 9.2 mg/dL (8.4-10.2); CARBON DIOXIDE 29 mmol/L (22-30); CHLORIDE 101 mmol/L (98-107); GLUCOSE 134 mg/dL (75-110); POTASSIUM 4.5 mmol/L (3.6-5.0); TOTAL PROTEIN 6.2 g/dL (6.3-8.2)
[2020-05-15] MEDS: INSULIN LISPRO 100 UNIT/ML 3 ML VIAL SUBCUT SCH ×3 (08:05→17:05)
[2020-05-15] MEDS: MESALAMINE 1.2 GM TABLET.DR PO SCH (08:20)
[2020-05-15] MEDS: FLUTICASONE NASAL SPRAY 50 MCG/SPRY 120 SPRAY/16 GM NAREB SCH (10:26)
[2020-05-15] MEDS: ENOXAPARIN SODIUM INJ 40 MG/0.4 ML DISP.SYRIN SUBCUT SCH (10:26)
--- NOTE | 2020-05-15 15:52 | PDOC PROGRESS REPORT ---
Subjective Date:: 05/15/20 Subjective:: Patient napping but awakens easily. Abdomen still feels uncomfortable but it is actually more in the right flank. Reason For Visit: ACUTE PANCREATITIS Physical Exam Vital Signs: Temp Pulse Resp BP Pulse Ox 97.8 F 68 18 136/78 H 99 05/15/20 15:15 05/15/20 15:15 05/15/20 15:15 05/15/20 15:15 05/15/20 15:15 Intake & Output 05/14/20 05/15/20 05/16/20 06:59 06:59 06:59 Intake Total 3073 3857 883 Balance 3073 3857 883 Weight 95 kg 95 kg 95 kg General appearance: PRESENT: no acute distress, well-developed, well-nourished Head exam: PRESENT: atraumatic, normocephalic Eye exam: PRESENT: conjunctiva pink. ABSENT: scleral icterus Ear exam: PRESENT: normal external ear exam. ABSENT: bleeding, drainage Mouth exam: PRESENT: dry mucosa, tongue midline Respiratory exam: PRESENT: clear to auscultation ned, symmetrical, unlabored. ABSENT: prolonged expiratory phas, rales, rhonchi, tachypnea, wheezes Cardiovascular exam: PRESENT: RRR, +S1, +S2. ABSENT: bradycardia, diastolic murmur, irregular rhythm, systolic murmur, tachycardia GI/Abdominal exam: PRESENT: normal bowel sounds, soft, tenderness - Right flank tender to percussion. ABSENT: distended Rectal exam: PRESENT: deferred Gentrourinary exam: ABSENT: indwelling catheter Musculoskeletal exam: PRESENT: ambulatory, normal inspection. ABSENT: deformity, dislocation Neurological exam: PRESENT: alert, awake, oriented to person, oriented to place, oriented to time, oriented to situation, CN II-XII grossly intact. ABSENT: altered Psychiatric exam: PRESENT: appropriate affect. ABSENT: agitated, anxious Focused psych exam: ABSENT: delusional, paranoid, restlessness Skin exam: PRESENT: dry, normal color, warm. ABSENT: erythema, rash Results Laboratory Results: 05/15/20 05:42 05/15/20 05:42 05/15/20 05/15/20 05:42 05:42 WBC 10.1 RBC 3.70 L Hgb 11.7 L Hct 34.7 L MCV 94 MCH 31.5 MCHC 33.6 RDW 14.5 H Plt Count 352 Sodium 138.8 Potassium 4.5 Chloride 101 Carbon Dioxide 29 Anion Gap 9 BUN 14 Creatinine 0.67 Est GFR ( Amer) > 60 Glucose 134 H Calcium 9.2 Total Bilirubin 0.5 AST 32 Alkaline Phosphatase 65 Total Protein 6.2 L Albumin 3.4 L Lipase 1108.8 H 05/09/20 15:05 Blood Blood Culture - Final NO GROWTH IN 5 DAYS 05/09/20 12:50 Blood Blood Culture - Final NO GROWTH IN 5 DAYS 05/08/20 04:08 NT-Pro-B Natriuret Pep 65 Impressions: Abdomen/Pelvis CT 05/07/20 14:07 IMPRESSION: 1. Minimal peripancreatic stranding compatible with acute interstitial pancreatitis. No findings to suggest pancreatic necrosis. No sig nificant collection. 2. Decompressed descending and rectosigmoid colon with mild diffuse wall thick ening. Recommend correlation for evidence of colitis. 3. Hepatic steatosis. Cholecystectomy. Chest X-Ray 05/10/20 00:00 IMPRESSION: Good position of central line. No pneumothorax. Assessment and Plan - Diagnosis (1) Ulcerative colitis, acute Qualifiers: Digestive disease complication type: other complication Qualified Code(s): K51.918 - Ulcerative colitis, unspecified with other complication Is this a current diagnosis for this admission?: Yes (2) Obesity (BMI 30-39.9) Is this a current diagnosis for this admission?: Yes (3) Anemia Is this a current diagnosis for this admission?: Yes (4) DM2 (diabetes mellitus, type 2) Is this a current diagnosis for this admission?: Yes (5) Hypokalemia Is this a current diagnosis for this admission?: Yes (6) Hyponatremia Is this a current diagnosis for this admission?: Yes (7) Acute pancreatitis Qualifiers: Pancreatitis type: unspecified pancreatitis type Acute pancreatitis complication: unspecified Qualified Code(s): K85.90 - Acute pancreatitis without necrosis or infection, unspecified Is this a current diagnosis for this admission?: Yes (8) HTN (hypertension) Is this a current diagnosis for this admission?: No (9) Difficult intravenous access Is this a current diagnosis for this admission?: Yes - Plan Summary Summary: Mrs. JAYLYN AUSTIN is a 49 year old female with PMH of ulcerative colitis who presented with crampy abdominal pain, 10+ bloody BM per day x10 days and recent onset of nausea/vomiting x4 days. Patient has history of chronic diarrhea secondary to ulcerative colitis, but normally has 5-6 BM/day. Dr. Parks is her lye bath operator. She was just recently diagnosed with UC a couple months ago, and underwent EGD/colonoscopy with Dr. Parks at that time. She has been taking mesalamine faithfully TID for about 6 weeks and has no prior history of steroid usage. She has had no sick contacts; no one at home has had vomiting/diarrhea. She denies fevers/chills. Acute, Severe Ulcerative Colitis Flare: on admission, she was initially started on IVF, pain and anti-emetic medications due to concern for possible pancreatitis. Her lipase was elevated at 924. She has no history of ETOH usage, is s/p remote cholecystectomy and has normal triglycerides. CT A/P on admission was notable for "minimal peripancreatic stranding" as well as "decompressed descending and rectosigmoid colon with mild diffuse wall thickening." On 05/09, she had been receiving treatment for possible pancreatitis x3 days and her symptoms had continued to get worse. Given that she was having 10+ bloody BM per day, and there was evidence of colitis on her initial CT, she met criteria for acute severe UC flare with her bloody stool frequency, anemia and elevated CRP, so she was started on treatment with steroids on 05/09. ESR/CRP very elevated. - She is at risk for developing fulminant UC and should start having serial abdominal XR if she develops worsening abdominal pain or distention. She had no evidence of bowel dilation on admission CT. Abdominal examination today is benign, soft, with no tenderness/rebound/guarding. Her pain is improved with steroids but she continues to have 14 BM in the last 24 hours. - She has no peritoneal signs, fever and does not meet the criteria for fulminant colitis or toxic megacolon, so will continue to hold off on antibiotics for now. - BCx, C diff, stool culture negative - advance diet as tolerated - avoid all anti-motility agents and minimize opioids as much as possible (due to the risk of ileus) - continue methylprednisolone 20 mg IV Q8H + PPI therapy (D1: 05/09) - discussed with Dr. Parks on 05/11, who recommended to start PO/VT mesalamine as well Normocytic Anemia: likely combination of anemia of chronic disease and chronic blood loss - hgb has been stable between 10-11 this admission - transfuse for goal hgb >7 Dehydration: due to diarrhea and poor oral intake - resolved with IVF Hypokalemia: due to diarrhea and poor oral intake - resolved with IV and PO repletion Hypovolemic Hyponatremia: due to diarrhea and poor oral intake - resolved with IVF DM2: HbA1c 7.0% - encourage diet, exercise and weight loss - hold off on metformin initiation given chronic diarrhea - SSI while inpatient - increase Lantus 10-->15 units daily (glucose elevated in the s/o steroids) - DM educator and sawdust machine operator consulted Obesity (BMI 37) - encourage diet, exercise and weight loss Lack of IV access - surgery consulted for central line placement on 05/10 DVT ppx: Lovenox 05/12/2020 Patient is on oral and rectal mesalamine. She is also receiving steroids for her ulcerative colitis. Still with multiple bowel movements. She thinks it is beginning to improve. Continue current regimen. Try to replace fluid losses from excessive stooling. Surprisingly potassium several days ago was elevated. Potassium supplements discontinued. Continue normal saline. Recheck electrolytes tomorrow. We will start introduce glipizide and possibly Januvia and try to avoid insulin at this time. Eventually consider Metformin once the colitis is stable. I will decrease the Lantus back to 10 units with the addition of glipizide 5 mg twice daily. Hyponatremia-recheck electrolytes tomorrow Anemia-hemoglobin has been stable. Recheck tomorrow. Patient reports less blood in the stool. Central line continues to function well. 05/13/2020 Lipase up to 1800. Patient is now n.p.o. Recheck lipase tomorrow. Inflammatory markers improved with steroids and mesalamine. Continue same. Sodium and potassium are now normal. Hemoglobin is 10.9. Continue to monitor laboratory studies 05/14/2020 Lipase is only slightly better at 1730. Continue n.p.o. diet and IV fluids. Recheck labs tomorrow. Continue to monitor electrolytes. Currently normal. Hypertension-blood pressures are acceptable Diabetes-diabetic medications decreased with patient being n.p.o. Continue Accu-Cheks and sliding scale. Patient has no abdominal pain tomorrow consider clear liquid diet with discharged within 48 hours 05/15/2020 Still with epigastric pain. Lipase is down to 1108. She is still having right flank discomfort. She does not have a history of kidney stones. I will order a urinalysis to look for crystals. If this is negative then obtain a renal ultrasound. Hemoglobin is slowly increasing and is 10.7 today. Sed rate is down to 49. LFTs are normal as is the basic metabolic panel. I will allow ice chips today. We will check her chemistries tomorrow. Consider clear liquids depending on how she feels tomorrow. - Time Time Spent with patient: 15-24 minutes Medications reviewed and adjusted accordingly: Yes Anticipated Discharge Disposition: Home, Self Care Anticipated Discharge Timeframe: within 72 hours
[2020-05-15 19:15] LABS: APPEARANCE,URINE CLEAR; BILIRUBIN,URINE NEGATIVE (NEGATIVE); COLOR,URINE STRAW; GLUCOSE, URINE NEGATIVE (NEGATIVE); KETONES,URINE 20 mg/dL (NEGATIVE); LEUKOCYTE ESTERASE,URINE NEGATIVE (NEGATIVE); NITRITE,URINE NEGATIVE (NEGATIVE); PROTEIN,URINE NEGATIVE (NEGATIVE); URINE SPECIFIC GRAVITY 1.012; UROBILINOGEN,URINE NEGATIVE mg/dL (<2.0)
[2020-05-15] MEDS: MESALAMINE 4 GM/60 ML ENEMA PR SCH (21:17)
[2020-05-16] MEDS: INSULIN LISPRO 100 UNIT/ML 3 ML VIAL SUBCUT SCH ×4 (00:17→18:55)
[2020-05-16] MEDS: METHYLPREDNISOLONE INJ 40 MG/1 ML SDV IV SCH ×2 (05:06→22:24)
[2020-05-16] MEDS: RINGERS SOLUTION,LACTATED 1,000 ML IV PRN ×5 (05:06→19:47)
[2020-05-16] MEDS: MESALAMINE 1.2 GM TABLET.DR PO SCH (09:43)
[2020-05-16] MEDS: FLUTICASONE NASAL SPRAY 50 MCG/SPRY 120 SPRAY/16 GM NAREB SCH (09:44)
[2020-05-16] MEDS: ENOXAPARIN SODIUM INJ 40 MG/0.4 ML DISP.SYRIN SUBCUT SCH (09:45)
--- NOTE | 2020-05-16 11:18 | PDOC PROGRESS REPORT ---
Subjective Date:: 05/16/20 Subjective:: The patient does not feel much better today. Still having some right flank pain . CT scan did not reveal any significant abnormalities in the kidney. Reason For Visit: ACUTE PANCREATITIS Physical Exam Vital Signs: Temp Pulse Resp BP Pulse Ox 98.1 F 74 17 132/87 H 95 05/16/20 07:32 05/16/20 07:32 05/16/20 07:32 05/16/20 07:32 05/16/20 07:32 Intake & Output 05/15/20 05/16/20 05/17/20 06:59 06:59 06:59 Intake Total 3857 3883 943 Balance 3857 3883 943 Weight 95 kg 95 kg General appearance: PRESENT: cooperative, mild distress, well-developed Head exam: PRESENT: atraumatic, normocephalic Ear exam: PRESENT: normal external ear exam. ABSENT: bleeding, drainage Mouth exam: PRESENT: dry mucosa, tongue midline Respiratory exam: PRESENT: clear to auscultation ned, symmetrical, unlabored. ABSENT: prolonged expiratory phas, rales, rhonchi, tachypnea, wheezes Cardiovascular exam: PRESENT: RRR, +S1, +S2. ABSENT: bradycardia, diastolic murmur, irregular rhythm, systolic murmur, tachycardia GI/Abdominal exam: PRESENT: normal bowel sounds, soft, tenderness - Still some tenderness in the epigastrium and right flank to percussion. ABSENT: distended Rectal exam: PRESENT: deferred Gentrourinary exam: ABSENT: indwelling catheter Extremities exam: ABSENT: calf tenderness, pedal edema Musculoskeletal exam: PRESENT: ambulatory, normal inspection. ABSENT: deformity, dislocation Neurological exam: PRESENT: alert, awake, oriented to person, oriented to place, oriented to time, oriented to situation, CN II-XII grossly intact. ABSENT: altered Psychiatric exam: PRESENT: appropriate affect. ABSENT: agitated, anxious Focused psych exam: ABSENT: delusional, paranoid, restlessness Skin exam: PRESENT: dry, normal color, warm. ABSENT: rash Results Laboratory Results: 05/15/20 05:42 05/15/20 05:42 05/15/20 05/16/20 18:40 05:00 Lipase 1054.3 H Urine Color STRAW Urine Appearance CLEAR Urine pH 8.0 Ur Specific Anderson 1.012 Urine Protein NEGATIVE Urine Glucose (UA) NEGATIVE Urine Ketones 20 H Urine Blood NEGATIVE Urine Nitrite NEGATIVE Ur Leukocyte Esterase NEGATIVE Urine WBC (Auto) 2 Urine RBC (Auto) 0 05/08/20 04:08 NT-Pro-B Natriuret Pep 65 Impressions: Abdomen/Pelvis CT 05/07/20 14:07 IMPRESSION: 1. Minimal peripancreatic stranding compatible with acute interstitial pancreatitis. No findings to suggest pancreatic necrosis. No significant collection. 2. Decompressed descending and rectosigmoid colon with mild diffuse wall thickening. Recommend correlation for evidence of colitis. 3. Hepatic steatosis. Cholecystectomy. Chest X-Ray 05/10/20 00:00 IMPRESSION: Good position of central line. No pneumothorax. Assessment and Plan - Diagnosis (1) Ulcerative colitis, acute Qualifiers: Digestive disease complication type: other complication Qualified Code(s): K51.918 - Ulcerative colitis, unspecified with other complication Is this a current diagnosis for this admission?: Yes (2) Obesity (BMI 30-39.9) Is this a current diagnosis for this admission?: Yes (3) Anemia Is this a current diagnosis for this admission?: Yes (4) DM2 (diabetes mellitus, type 2) Is this a current diagnosis for this admission?: Yes (5) Hypokalemia Is this a current diagnosis for this admission?: Yes (6) Hyponatremia Is this a current diagnosis for this admission?: Yes (7) Acute pancreatitis Qualifiers: Pancreatitis type: unspecified pancreatitis type Acute pancreatitis complication: unspecified Qualified Code(s): K85.90 - Acute pancreatitis without necrosis or infection, unspecified Is this a current diagnosis for this admission?: Yes (8) HTN (hypertension) Is this a current diagnosis for this admission?: No (9) Difficult intravenous access Is this a current diagnosis for this admission?: Yes - Plan Summary Summary: Mrs. JAYLYN AUSTIN is a 49 year old female with PMH of ulcerative colitis who presented with crampy abdominal pain, 10+ bloody BM per day x10 days and recent onset of nausea/vomiting x4 days. Patient has history of chronic diarrhea secondary to ulcerative colitis, but normally has 5-6 BM/day. Dr. Parks is her tour sales representative. She was just recently diagnosed with UC a couple months ago, and underwent EGD/colonoscopy with Dr. Parks at that time. She has been taking mesalamine faithfully TID for about 6 weeks and has no prior history of steroid usage. She has had no sick contacts; no one at home has had vomiting/diarrhea. She denies fevers/chills. Acute, Severe Ulcerative Colitis Flare: on admission, she was initially started on IVF, pain and anti-emetic medications due to concern for possible pancreat itis. Her lipase was elevated at 924. She has no history of ETOH usage, is s/p remote cholecystectomy and has normal triglycerides. CT A/P on admission was notable for "minimal peripancreatic stranding" as well as "decompressed descending and rectosigmoid colon with mild diffuse wall thickening." On 05/09, she had been receiving treatment for possible pancreatitis x3 days and her symptoms had continued to get worse. Given that she was having 10+ bloody BM per day, and there was evidence of colitis on her initial CT, she met criteria for acute severe UC flare with her bloody stool frequency, anemia and elevated CRP, so she was started on treatment with steroids on 05/09. ESR/CRP very elevated. - She is at risk for developing fulminant UC and should start having serial abdominal XR if she develops worsening abdominal pain or distention. She had no evidence of bowel dilation on admission CT. Abdominal examination today is benign, soft, with no tenderness/rebound/guarding. Her pain is improved with steroids but she continues to have 14 BM in the last 24 hours. - She has no peritoneal signs, fever and does not meet the criteria for fulminant colitis or toxic megacolon, so will continue to hold off on antibiotics for now. - BCx, C diff, stool culture negative - advance diet as tolerated - avoid all anti-motility agents and minimize opioids as much as possible (due to the risk of ileus) - continue methylprednisolone 20 mg IV Q8H + PPI therapy (D1: 05/09) - discussed with Dr. Parks on 05/11, who recommended to start PO/IN mesalamine as well Normocytic Anemia: likely combination of anemia of chronic disease and chronic blood loss - hgb has been stable between 10-11 this admission - transfuse for goal hgb >7 Dehydration: due to diarrhea and poor oral intake - resolved with IVF Hypokalemia: due to diarrhea and poor oral intake - resolved with IV and PO repletion Hypovolemic Hyponatremia: due to diarrhea and poor oral intake - resolved with IVF DM2: HbA1c 7.0% - encourage diet, exercise and weight loss - hold off on metformin initiation given chronic diarrhea - SSI while inpatient - increase Lantus 10-->15 units daily (glucose elevated in the s/o steroids) - DM educator and retention representative consulted Obesity (BMI 37) - encourage diet, exercise and weight loss Lack of IV access - surgery consulted for central line placement on 05/10 DVT ppx: Lovenox 05/12/2020 Patient is on oral and rectal mesalamine. She is also receiving steroids for her ulcerative colitis. Still with multiple bowel movements. She thinks it is beginning to improve. Continue current regimen. Try to replace fluid losses from excessive stooling. Surprisingly potassium several days ago was elevated. Potassium supplements discontinued. Continue normal saline. Recheck electrolytes tomorrow. We will start introduce glipizide and possibly Januvia and try to avoid insulin at this time. Eventually consider Metformin once the colitis is stable. I will decrease the Lantus back to 10 units with the addition of glipizide 5 mg twice daily. Hyponatremia-recheck electrolytes tomorrow Anemia-hemoglobin has been stable. Recheck tomorrow. Patient reports less blood in the stool. Central line continues to function well. 05/13/2020 Lipase up to 1800. Patient is now n.p.o. Recheck lipase tomorrow. Inflammatory markers improved with steroids and mesalamine. Continue same. Sodium and potassium are now normal. Hemoglobin is 10.9. Continue to monitor laboratory studies 05/14/2020 Lipase is only slightly better at 1730. Continue n.p.o. diet and IV fluids. Recheck labs tomorrow. Continue to monitor electrolytes. Currently normal. Hypertension-blood pressures are acceptable Diabetes-diabetic medications decreased with patient being n.p.o. Continue Accu-Cheks and sliding scale. Patient has no abdominal pain tomorrow consider clear liquid diet with discharged within 48 hours 05/15/2020 Still with epigastric pain. Lipase is down to 1108. She is still having right flank discomfort. She does not have a history of kidney stones. I will order a urinalysis to look for crystals. If this is negative then obtain a renal ultrasound. Hemoglobin is slowly increasing and is 10.7 today. Sed rate is down to 49. LFTs are normal as is the basic metabolic panel. I will allow ice chips today. We will check her chemistries tomorrow. Consider clear liquids depending on how she feels tomorrow. 05/16/2020 Lipase is down to 1054. Not the drop I was hoping for. She has only had some ice chips and medications. She will remain n.p.o. at this time. I did research her medications. Mesalamine does have a 1% chance of pancreatitis. Hydrochlorothiazide can also cause pancreatitis. She is currently off of her hydrochlorothiazide. I will likely use a different medic ation for blood pressure prior to discharge. The right flank discomfort is not likely renal as the CT scan showed no abnormality in the urinalysis did not have crystals or any evidence of infection. She does have some fatty liver but this should not cause percussive discomfort in the right flank. Yhhwnslg-Mudm-Kclxx are acceptable. She is off of her regular medications since she is n.p.o. She does remain on sliding scale. Continue to monitor electrolytes, renal function and sed rate. - Time Time Spent with patient: 15-24 minutes Medications reviewed and adjusted accordingly: Yes Anticipated Discharge Disposition: Home, Self Care Anticipated Discharge Timeframe: within 72 hours
[2020-05-16] MEDS: PROMETHAZINE HCL INJ 25 MG/1 ML VIAL IV PRN (20:20)
[2020-05-16] MEDS: MESALAMINE 4 GM/60 ML ENEMA PR SCH (22:23)
[2020-05-17] MEDS: INSULIN LISPRO 100 UNIT/ML 3 ML VIAL SUBCUT SCH ×4 (00:01→19:43)
[2020-05-17] MEDS: RINGERS SOLUTION,LACTATED 1,000 ML IV PRN ×3 (05:29→21:42)
[2020-05-17 07:46] LABS: ANION GAP 7 (5-19); BLOOD UREA NITROGEN 13 mg/dL (7-20); CALCIUM 8.4 mg/dL (8.4-10.2); CARBON DIOXIDE 28 mmol/L (22-30); CHLORIDE 102 mmol/L (98-107); GLUCOSE 127 mg/dL (75-110)
[2020-05-17] MEDS: METHYLPREDNISOLONE INJ 40 MG/1 ML SDV IV SCH ×2 (10:15→21:35)
[2020-05-17] MEDS: FLUTICASONE NASAL SPRAY 50 MCG/SPRY 120 SPRAY/16 GM NAREB SCH (10:16)
[2020-05-17] MEDS: ENOXAPARIN SODIUM INJ 40 MG/0.4 ML DISP.SYRIN SUBCUT SCH (10:16)
[2020-05-17 10:53] LABS: HEMATOCRIT 34.7 % (36.0-47.0); HEMOGLOBIN 11.7 g/dL (12.0-15.5); MEAN CORPUSCULAR HEMOGLOBIN 31.3 pg (27.0-33.4); MEAN CORPUSCULAR HGB CONC 33.7 g/dL (32.0-36.0); MEAN CORPUSCULAR VOLUME 93 fl (80-97); PLATELET COUNT 310 10^3/uL (150-450); RED BLOOD COUNT 3.75 10^6/uL (3.72-5.28); RED CELL DISTRIBUTION WIDTH 14.2 % (11.5-14.0); WHITE BLOOD COUNT 11.2 10^3/uL (4.0-10.5)
[2020-05-17 11:31] LABS: ERYTHROCYTE SEDIMENTATION RATE 48 mm/hr (0-30)
--- NOTE | 2020-05-17 15:00 | PDOC PROGRESS REPORT ---
Subjective Date:: 05/17/20 Subjective:: Resting in bed. Patient and huband have many questions. Reason For Visit: ACUTE PANCREATITIS Physical Exam Vital Signs: Temp Pulse Resp BP Pulse Ox 98.3 F 75 16 128/74 H 93 05/17/20 11:55 05/17/20 11:55 05/17/20 11:55 05/17/20 11:55 05/17/20 11:55 Intake & Output 05/16/20 05/17/20 05/18/20 06:59 06:59 06:59 Intake Total 3883 4026 1000 Balance 3883 4026 1000 Weight 95 kg 95 kg General appearance: PRESENT: cooperative, mild distress, well-developed Head exam: PRESENT: atraumatic, normocephalic Ear exam: PRESENT: normal external ear exam. ABSENT: bleeding, drainage Mouth exam: PRESENT: dry mucosa, tongue midline Respiratory exam: PRESENT: clear to auscultation ned, symmetrical, unlabored. ABSENT: rales, rhonchi, tachypnea, wheezes Cardiovascular exam: PRESENT: RRR, +S1, +S2. ABSENT: bradycardia, diastolic murmur, systolic murmur, tachycardia GI/Abdominal exam: PRESENT: normal bowel sounds, soft, tenderness Rectal exam: PRESENT: deferred Gentrourinary exam: ABSENT: indwelling catheter Extremities exam: ABSENT: pedal edema Musculoskeletal exam: PRESENT: ambulatory, normal inspection. ABSENT: deformity, dislocation Neurological exam: PRESENT: alert, awake, oriented to person, oriented to place, oriented to time, oriented to situation, CN II-XII grossly intact. ABSENT: altered Psychiatric exam: PRESENT: appropriate affect. ABSENT: agitated, anxious Focused psych exam: ABSENT: delusional, paranoid, restlessness Skin exam: PRESENT: dry, warm, other - No facial flushing today Results Laboratory Results: 05/17/20 10:33 05/17/20 05:35 05/17/20 05/17/20 05/17/20 05:35 05:35 08:00 WBC Cancelled Cancelled RBC Cancelled Cancelled Hgb Cancelled Cancelled Hct Cancelled Cancelled MCV Cancelled Cancelled MCH Cancelled Cancelled MCHC Cancelled Cancelled RDW Cancelled Cancelled Plt Count Cancelled Cancelled Sodium 137.4 Potassium 4.0 Chloride 102 Carbon Dioxide 28 Anion Gap 7 BUN 13 Creatinine 0.61 Est GFR ( Amer) > 60 Glucose 127 H Calcium 8.4 Lipase 1681.6 H 05/17/20 10:33 WBC 11.2 H RBC 3.75 Hgb 11.7 L Hct 34.7 L MCV 93 MCH 31.3 MCHC 33.7 RDW 14.2 H Plt Count 310 Sodium Potassium Chloride Carbon Dioxide Anion Gap BUN Creatinine Est GFR ( Amer) Glucose Calcium Lipase 05/08/20 04:08 NT-Pro-B Natriuret Pep 65 Impressions: Abdomen/Pelvis CT 05/07/20 14:07 IMPRESSION: 1. Minimal peripancreatic stranding compatible with acute interstitial pancreatitis. No findings to suggest pancreatic necrosis. No significant collection. 2. Decompressed descending and rectosigmoid colon with mild diffuse wall thickening. Recommend correlation for evidence of colitis. 3. Hepatic steatosis. Cholecystectomy. Chest X-Ray 05/10/20 00:00 IMPRESSION: Good position of central line. No pneumothorax. Assessment and Plan - Diagnosis (1) Ulcerative colitis, acute Qualifiers: Digestive disease complication type: other complication Qualified Code(s): K51.918 - Ulcerative colitis, unspecified with other complication Is this a current diagnosis for this admission?: Yes (2) Obesity (BMI 30-39.9) Is this a current diagnosis for this admission?: Yes (3) Anemia Is this a current diagnosis for this admission?: Yes (4) DM2 (diabetes mellitus, type 2) Is this a current diagnosis for this admission?: Yes (5) Hypokalemia Is this a current diagnosis for this admission?: Yes (6) Hyponatremia Is this a current diagnosis for this admission?: Yes (7) Acute pancreatitis Qualifiers: Pancreatitis type: unspecified pancreatitis type Acute pancreatitis complication: unspecified Qualified Code(s): K85.90 - Acute pancreatitis without necrosis or infection, unspecified Is this a current diagnosis for this admission?: Yes (8) HTN (hypertension) Is this a current diagnosis for this admission?: No (9) Difficult intravenous access Is this a current diagnosis for this admission?: Yes - Plan Summary Summary: Mrs. JAYLYN AUSTIN is a 49 year old female with PMH of ulcerative colitis who presented with crampy abdominal pain, 10+ bloody BM per day x10 days and recent onset of nausea/vomiting x4 days. Patient has history of chronic diarrhea secondary to ulcerative colitis, but normally has 5-6 BM/day. Dr. Parks is her clinical therapist. She was just recently diagnosed with UC a couple months ago, and underwent EGD/colonoscopy with Dr. Parks at that time. She has been taking mesalamine faithfully TID for about 6 weeks and has no prior history of steroid usage. She has had no sick contacts; no one at home has had vomiting/diarrhea. She denies fevers/chills. Acute, Severe Ulcerative Colitis Flare: on admission, she was initially started on IVF, pain and anti-emetic medications due to concern for possible pancreatitis. Her lipase was elevated at 924. She has no history of ETOH usage, is s/p remote cholecystectomy and has normal triglycerides. CT A/P on admission was notable for "minimal peripancreatic stranding" as well as "decompressed descending and rectosigmoid colon with mild diffuse wall thickening." On 05/09, she had been receiving treatment for possible pancreatitis x3 days and her s ymptoms had continued to get worse. Given that she was having 10+ bloody BM per day, and there was evidence of colitis on her initial CT, she met criteria for acute severe UC flare with her bloody stool frequency, anemia and elevated CRP, so she was started on treatment with steroids on 05/09. ESR/CRP very elevated. - She is at risk for developing fulminant UC and should start having serial abdominal XR if she develops worsening abdominal pain or distention. She had no evidence of bowel dilation on admission CT. Abdominal examination today is benign, soft, with no tenderness/rebound/guarding. Her pain is improved with steroids but she continues to have 14 BM in the last 24 hours. - She has no peritoneal signs, fever and does not meet the criteria for fulminant colitis or toxic megacolon, so will continue to hold off on antibiotics for now. - BCx, C diff, stool culture negative - advance diet as tolerated - avoid all anti-motility agents and minimize opioids as much as possible (due to the risk of ileus) - continue methylprednisolone 20 mg IV Q8H + PPI therapy (D1: 05/09) - discussed with Dr. Parks on 05/11, who recommended to start PO/AL mesalamine as well -05/17/2020-currently on mesalamine and steroids. Lipase increased today despite n.p.o. status. Being n.p.o. and ongoing mesalamine and steroids has resulted in a significant decrease in bowel movements. Normocytic Anemia: likely combination of anemia of chronic disease and chronic blood loss - hgb has been stable between 10- this admission - transfuse for goal hgb >7 -Continue to monitor hemoglobin Dehydration: due to diarrhea and poor oral intake - resolved with IVF -With n.p.o. status she is on fluids at 200 mL an hour Hypokalemia: due to diarrhea and poor oral intake - resolved with IV and PO repletion -05/17/2020-serum potassium 4.0 today. Continue to monitor. Hypovolemic Hyponatremia: due to diarrhea and poor oral intake - resolved with IVF DM2: HbA1c 7.0% - encourage diet, exercise and weight loss - hold off on metformin initiation given chronic diarrhea - SSI while inpatient - increase Lantus 10-->15 units daily (glucose elevated in the s/o steroids) - DM educator and fire extinguisher charger consulted -05/17/2020-glucose today is 127. Obesity (BMI 37) - encourage diet, exercise and weight loss -05/17/2020-currently n.p.o. with fluids. Will likely result in transient weight loss. Lack of IV access - surgery consulted for central line placement on 05/10 DVT ppx: Lovenox 05/12/2020 Patient is on oral and rectal mesalamine. She is also receiving steroids for her ulcerative colitis. Still with multiple bowel movements. She thinks it is beginning to improve. Continue current regimen. Try to replace fluid losses from excessive stooling. Surprisingly potassium several days ago was elevated. Potassium supplements discontinued. Continue normal saline. Recheck electrolytes tomorrow. We will start introduce glipizide and possibly Januvia and try to avoid insulin at this time. Eventually consider Metformin once the colitis is stable. I will decrease the Lantus back to 10 units with the addition of glipizide 5 mg twice daily. Hyponatremia-recheck electrolytes tomorrow Anemia-hemoglobin has been stable. Recheck tomorrow. Patient reports less blood in the stool. Central line continues to function well. 05/13/2020 Lipase up to 1800. Patient is now n.p.o. Recheck lipase tomorrow. Inflammatory markers improved with steroids and mesalamine. Continue same. Sodium and potassium are now normal. Hemoglobin is 10.9. Continue to monitor laboratory studies 05/14/2020 Lipase is only slightly better at 1730. Continue n.p.o. diet and IV fluids. Recheck labs tomorrow. Continue to monitor electrolytes. Currently normal. Hypertension-blood pressures are acceptable Diabetes-diabetic medications decreased with patient being n.p.o. Continue Accu-Cheks and sliding scale. Patient has no abdominal pain tomorrow consider clear liquid diet with discharged within 48 hours 05/15/2020 Still with epigastric pain. Lipase is down to 1108. She is still having right flank discomfort. She does not have a history of kidney stones. I will order a urinalysis to look for crystals. If this is negative then obtain a renal ultrasound. Hemoglobin is slowly increasing and is 10.7 today. Sed rate is down to 49. LFTs are normal as is the basic metabolic panel. I will allow ice chips today. We will check her chemistries tomorrow. Consider clear liquids depending on how she feels tomorrow. 05/16/2020 Lipase is down to 1054. Not the drop I was hoping for. She has only had some ice chips and medications. She will remain n.p.o. at this time. I did research her medications. Mesalamine does have a 1% chance of pancreatitis. Hydrochlorothiazide can also cause pancreatitis. She is currently off of her hydrochlorothiazide. I will likely use a different medication for blood pressure prior to discharge. The right flank discomfort is not likely renal as the CT scan showed no abnormality in the urinalysis did not have crystals or any evidence of infection. She does have some fatty liver but this should not cause percussive discomfort in the right flank. Cutgqiik-Fckd-Umcwp are acceptable. She is off of her regular medications since she is n.p.o. She does remain on sliding scale. Continue to monitor electrolytes, renal function and sed rate. 05/17/2020 Pancreatitis-unfortunately the lipase went up to 1600 today. Patient still feels poorly. She has been n.p.o. for several days now. I did research on ulcerative colitis and pancreatitis to reveal that there is a 1% chance of mesalamine causing pancreatitis. In addition hydrochlorothiazide can cause pancreatitis however she has not been on the hydrochlorothiazide for 4 to 5 days. Steatohepatitis-patient does have fatty liver change by CT scan. No acute intervention at this time. Ulcerative colitis-we are going to hold the mesalamine on the chance that it could be contributing to the pancreatitis. Because of this I did increase her steroid dose somewhat. Right flank discomfort-after review she believes that she gets facial flushing when she is having the right flank pain. Dr. Parks feels that the discomfort is unrelated to the ulcerative colitis. I have ordered an IVP to rule out any suspicious lesions in the collecting system and ureters. CT scan did not show any hydronephrosis at the time of the study. We will confirm anatomy with the IVP. Will review with Dr. Parks tomorrow. We will need to further investigate and identify the potential etiology of the worsening pancreatitis despite n.p.o. status. The patient's daughter and were present. We did have an extensive conve rsation regarding the issues outlined above. We reviewed the treatment plan including possible investigations. The visit lasted 30 minutes more than half of which involved discussion and education regarding the patient's current condition and related studies. - Time Time Spent with patient: 25-34 minutes Medications reviewed and adjusted accordingly: Yes Anticipated Discharge Disposition: Home, Self Care Anticipated Discharge Timeframe: Unknown
[2020-05-17] MEDS: MESALAMINE 1.2 GM TABLET.DR PO SCH (15:25)
[2020-05-18] MEDS: INSULIN LISPRO 100 UNIT/ML 3 ML VIAL SUBCUT SCH ×4 (01:00→17:09)
[2020-05-18] MEDS: RINGERS SOLUTION,LACTATED 1,000 ML IV PRN ×2 (02:59→20:14)
[2020-05-18 05:48] LABS: HEMATOCRIT 31.3 % (36.0-47.0); HEMOGLOBIN 10.6 g/dL (12.0-15.5); MEAN CORPUSCULAR VOLUME 94 fl (80-97); PLATELET COUNT 261 10^3/uL (150-450); RED BLOOD COUNT 3.33 10^6/uL (3.72-5.28); RED CELL DISTRIBUTION WIDTH 14.2 % (11.5-14.0); WHITE BLOOD COUNT 8.5 10^3/uL (4.0-10.5)
[2020-05-18 05:58] LABS: ANION GAP 6 (5-19); BLOOD UREA NITROGEN 13 mg/dL (7-20); CALCIUM 8.7 mg/dL (8.4-10.2); CARBON DIOXIDE 28 mmol/L (22-30); CHLORIDE 103 mmol/L (98-107); GLUCOSE 127 mg/dL (75-110); POTASSIUM 4.3 mmol/L (3.6-5.0)
[2020-05-18 06:24] LABS: ABSOLUTE LYMPHOCYTES# (MANUAL) 0.4 10^3/uL (0.5-4.7); ABSOLUTE MONOCYTES # (MANUAL) 0.1 10^3/uL (0.1-1.4); BASOPHILS % (MANUAL) 0 % (0-2); EOSINOPHILS % (MANUAL) 0 % (0-6); LYMPHOCYTES % (MANUAL) 5 % (13-45); MONOCYTES % (MANUAL) 1 % (3-13); SEGMENTED NEUTROPHILS % (MAN) 94 % (42-78); TOTAL CELLS COUNTED 100
[2020-05-18 06:25] LABS: PLATELET COMMENT ADEQUATE; RBC MORPHOLOGY COMMENT NORMO-CYTIC/CHROMIC
[2020-05-18] MEDS: METHYLPREDNISOLONE INJ 40 MG/1 ML SDV IV SCH ×2 (11:09→22:17)
[2020-05-18] MEDS: FLUTICASONE NASAL SPRAY 50 MCG/SPRY 120 SPRAY/16 GM NAREB SCH (11:09)
[2020-05-18] MEDS: ENOXAPARIN SODIUM INJ 40 MG/0.4 ML DISP.SYRIN SUBCUT SCH (11:10)
--- NOTE | 2020-05-18 14:47 | PDOC PROGRESS REPORT ---
Subjective Date:: 05/18/20 Subjective:: Resting in bed. Feeling slightly better. Lipase is down to 900 and amylase is increased to 126. Reason For Visit: ACUTE PANCREATITIS Physical Exam Vital Signs: Temp Pulse Resp BP Pulse Ox 97.8 F 73 17 132/74 H 99 05/18/20 08:33 05/18/20 07:56 05/18/20 07:56 05/18/20 07:56 05/18/20 07:56 Intake & Output 05/17/20 05/18/20 05/19/20 06:59 06:59 06:59 Intake Total 4026 3120 Balance 4026 3120 Weight 95 kg 92 kg 92 kg General appearance: PRESENT: cooperative, mild distress, well-developed Respiratory exam: PRESENT: clear to auscultation ned, symmetrical, unlabored. ABSENT: accessory muscle use, rales, rhonchi, tachypnea, wheezes Cardiovascular exam: PRESENT: RRR, +S1, +S2. ABSENT: bradycardia, diastolic murmur, irregular rhythm, systolic murmur, tachycardia GI/Abdominal exam: PRESENT: normal bowel sounds, soft, tenderness. ABSENT: dist ended Rectal exam: PRESENT: deferred Gentrourinary exam: ABSENT: indwelling catheter Extremities exam: ABSENT: pedal edema Neurological exam: PRESENT: alert, awake, oriented to person, oriented to place, oriented to time, oriented to situation, CN II-XII grossly intact. ABSENT: altered Psychiatric exam: PRESENT: appropriate affect. ABSENT: agitated, anxious Focused psych exam: ABSENT: delusional, paranoid, restlessness Skin exam: PRESENT: dry, normal color, warm. ABSENT: rash Results Laboratory Results: 05/18/20 05:30 05/18/20 05:30 05/18/20 05/18/20 05/18/20 05:30 05:30 05:30 WBC 8.5 RBC 3.33 L Hgb 10.6 L Hct 31.3 L MCV 94 MCH 32.0 MCHC 34.0 RDW 14.2 H Plt Count 261 Seg Neutrophils % Not Reportable Sodium 137.3 Potassium 4.3 Chloride 103 Carbon Dioxide 28 Anion Gap 6 BUN 13 Creatinine 0.50 L Est GFR ( Amer) > 60 Glucose 127 H Calcium 8.7 Magnesium 2.3 Amylase 126 H Lipase 914.9 H 05/08/20 04:08 NT-Pro-B Natriuret Pep 65 Impressions: Abdomen/Pelvis CT 05/07/20 14:07 IMPRESSION: 1. Minimal peripancreatic stranding compatible with acute interstitial pancreatitis. No findings to suggest pancreatic necrosis. No significant collection. 2. Decompressed descending and rectosigmoid colon with mild diffuse wall thickening. Recommend correlation for evidence of colitis. 3. Hepatic steatosis. Cholecystectomy. Chest X-Ray 05/10/20 00:00 IMPRESSION: Good position of central line. No pneumothorax. Assessment and Plan - Diagnosis (1) Ulcerative colitis, acute Qualifiers: Digestive disease complication type: other complication Qualified Code(s): K51.918 - Ulcerative colitis, unspecified with other complication Is this a current diagnosis for this admission?: Yes (2) Obesity (BMI 30-39.9) Is this a current diagnosis for this admission?: Yes (3) Anemia Is this a current diagnosis for this admission?: Yes (4) DM2 (diabetes mellitus, type 2) Is this a current diagnosis for this admission?: Yes (5) Hypokalemia Is this a current diagnosis for this admission?: Yes (6) Hyponatremia Is this a current diagnosis for this admission?: Yes (7) Acute pancreatitis Qualifiers: Pancreatitis type: unspecified pancreatitis type Acute pancreatitis complication: unspecified Qualified Code(s): K85.90 - Acute pancreatitis without necrosis or infection, unspecified Is this a current diagnosis for this admission?: Yes (8) HTN (hypertension) Is this a current diagnosis for this admission?: No (9) Difficult intravenous access Is this a current diagnosis for this admission?: Yes - Plan Summary Summary: Mrs. JAYLYN AUSTIN is a 49 year old female with PMH of ulcerative colitis who presented with crampy abdominal pain, 10+ bloody BM per day x10 days and recent onset of nausea/vomiting x4 days. Patient has history of chronic diarrhea sec ondary to ulcerative colitis, but normally has 5-6 BM/day. Dr. Parks is her trauma manager. She was just recently diagnosed with UC a couple months ago, and underwent EGD/colonoscopy with Dr. Parks at that time. She has been taking mesalamine faithfully TID for about 6 weeks and has no prior history of steroid usage. She has had no sick contacts; no one at home has had vomiting/diarrhea. She denies fevers/chills. Acute, Severe Ulcerative Colitis Flare: on admission, she was initially started on IVF, pain and anti-emetic medications due to concern for possible bazan creatitis. Her lipase was elevated at 924. She has no history of ETOH usage, is s/p remote cholecystectomy and has normal triglycerides. CT A/P on admission was notable for "minimal peripancreatic stranding" as well as "decompressed descending and rectosigmoid colon with mild diffuse wall thickening." On 05/09, she had been receiving treatment for possible pancreatitis x3 days and her symptoms had continued to get worse. Given that she was having 10+ bloody BM per day, and there was evidence of colitis on her initial CT, she met criteria for acute severe UC flare with her bloody stool frequency, anemia and elevated CRP, so she was started on treatment with steroids on 05/09. ESR/CRP very elevated. - She is at risk for developing fulminant UC and should start having serial abdominal XR if she develops worsening abdominal pain or distention. She had no evidence of bowel dilation on admission CT. Abdominal examination today is benign, soft, with no tenderness/rebound/guarding. Her pain is improved with steroids but she continues to have 14 BM in the last 24 hours. - She has no peritoneal signs, fever and does not meet the criteria for fulminant colitis or toxic megacolon, so will continue to hold off on antibiotics for now. - BCx, C diff, stool culture negative - advance diet as tolerated - avoid all anti-motility agents and minimize opioids as much as possible (due to the risk of ileus) - continue methylprednisolone 20 mg IV Q8H + PPI therapy (D1: 05/09) - discussed with Dr. Parks on 05/11, who recommended to start PO/NM mesalamine as well -05/17/2020-currently on mesalamine and steroids. Lipase increased today despite n.p.o. status. Being n.p.o. and ongoing mesalamine and steroids has resulted in a significant decrease in bowel movements. Normocytic Anemia: likely combination of anemia of chronic disease and chronic blood loss - hgb has been stable between 10-11 this admission - transfuse for goal hgb >7 -Continue to monitor hemoglobin Dehydration: due to diarrhea and poor oral intake - resolved with IVF -With n.p.o. status she is on fluids at 200 mL an hour Hypokalemia: due to diarrhea and poor oral intake - resolved with IV and PO repletion -05/17/2020-serum potassium 4.0 today. Continue to monitor. Hypovolemic Hyponatremia: due to diarrhea and poor oral intake - resolved with IVF DM2: HbA1c 7.0% - encourage diet, exercise and weight loss - hold off on metformin initiation given chronic diarrhea - SSI while inpatient - increase Lantus 10-->15 units daily (glucose elevated in the s/o steroids) - DM educator and cane burner consulted -05/17/2020-glucose today is 127. Obesity (BMI 37) - encourage diet, exercise and weight loss -05/17/2020-currently n.p.o. with fluids. Will likely result in transient weight loss. Lack of IV access - surgery consulted for central line placement on 05/10 DVT ppx: Lovenox 05/12/2020 Patient is on oral and rectal mesalamine. She is also receiving steroids for her ulcerative colitis. Still with multiple bowel movements. She thinks it is beginning to improve. Continue current regimen. Try to replace fluid losses from excessive stooling. Surprisingly potassium several days ago was elevated. Potassium supplements discontinued. Continue normal saline. Recheck electrolytes tomorrow. We will start introduce glipizide and possibly Januvia and try to avoid insulin at this time. Eventually consider Metformin once the colitis is stable. I will decrease the Lantus back to 10 units with the addition of glipizide 5 mg twice daily. Hyponatremia-recheck electrolytes tomorrow Anemia-hemoglobin has been stable. Recheck tomorrow. Patient reports less blood in the stool. Central line continues to function well. 05/13/2020 Lipase up to 1800. Patient is now n.p.o. Recheck lipase tomorrow. Inflammatory markers improved with steroids and mesalamine. Continue same. Sodium and potassium are now normal. Hemoglobin is 10.9. Continue to monitor laboratory studies 05/14/2020 Lipase is only slightly better at 1730. Continue n.p.o. diet and IV fluids. Recheck labs tomorrow. Continue to monitor electrolytes. Currently normal. Hypertension-blood pressures are acceptable Diabetes-diabetic medications decreased with patient being n.p.o. Continue Accu-Cheks and sliding scale. Patient has no abdominal pain tomorrow consider clear liquid diet with discharged within 48 hours 05/15/2020 Still with epigastric pain. Lipase is down to 1108. She is still having right flank discomfort. She does not have a history of kidney stones. I will order a urinalysis to look for crystals. If this is negative then obtain a renal ultrasound. Hemoglobin is slowly increasing and is 10.7 today. Sed rate is down to 49. LFTs are normal as is the basic metabolic panel. I will allow ice chips today. We will check her chemistries tomorrow. Consider clear liquids depending on how she feels tomorrow. 05/16/2020 Lipase is down to 1054. Not the drop I was hoping for. She has only had some ice chips and medications. She will remain n.p.o. at this time. I did research her medications. Mesalamine does have a 1% chance of pancreatitis. Hydrochlorothiazide can also cause pancreatitis. She is c urrently off of her hydrochlorothiazide. I will likely use a different medication for blood pressure prior to discharge. The right flank discomfort is not likely renal as the CT scan showed no abnorm ality in the urinalysis did not have crystals or any evidence of infection. She does have some fatty liver but this should not cause percussive discomfort in the right flank. Xtfhiugj-Aqaf-Flkyb are acceptable. She is off of her regular medications since she is n.p.o. She does remain on sliding scale. Continue to monitor electrolytes, renal function and sed rate. 05/17/2020 Pancreatitis-unfortunately the lipase went up to 1600 today. Patient still feels poorly. She has been n.p.o. for several days now. I did research on ulcerative colitis and pancreatitis to reveal that there is a 1% chance of mesalamine causing pancreatitis. In addition hydrochlorothiazide can cause pancreatitis however she has not been on the hydrochlorothiazide for 4 to 5 days. Steatohepatitis-patient does have fatty liver change by CT scan. No acute intervention at this time. Ulcerative colitis-we are going to hold the mesalamine on the chance that it could be contributing to the pancreatitis. Because of this I did increase her steroid dose somewhat. Right flank discomfort-after review she believes that she gets facial flushing when she is having the right flank pain. Dr. Parks feels that the discomfort is unrelated to the ulcerative colitis. I have ordered an IVP to rule out any suspicious lesions in the collecting system and ureters. CT scan did not show any hydronephrosis at the time of the study. We will confirm anatomy with the IVP. Will review with Dr. Parks tomorrow. We will need to further investigate and identify the potential etiology of the worsening pancreatitis despite n.p.o. status. The patient's daughter and were present. We did have an extensive conversation regarding the issues outlined above. We reviewed the treatment plan including possible investigations. The visit lasted 30 minutes more than half of which involved discussion and education regarding the patient's current condition and related studies. 05/18/2020 Lipase has come down slightly. We will trial sips of clear liquids. We will coordinate with Dr. Parks. Continue Solu-Medrol for now. Holding mesalamine on the outside chance that it could be contributing to pancreatitis. Steatohepatitis-triglycerides are normal. Continue to monitor. IVP was normal. We have ruled out the kidneys and ureter as a source of her right-sided abdominal pain. Recheck laboratory studies tomorrow. Await Dr. Parks's input. - Time Time Spent with patient: 15-24 minutes Medications reviewed and adjusted accordingly: Yes Anticipated Discharge Disposition: Home, Self Care Anticipated Discharge Timeframe: Unknown
--- NOTE | 2020-05-18 16:31 | RADIOLOGY REPORT (SQ) ---
EXAM DESCRIPTION: IVP W/WO TOMOGRAMS IMAGES COMPLETED DATE/TIME: 05/18/2020 10:02 am REASON FOR STUDY: right flank pain COMPARISON: CT of the abdomen and pelvis with contrast from 05/07/2020. NUMBER OF VIEWS: 7 views. TECHNIQUE: At 1st a hydraulic press operator radiograph in the AP projection of the abdomen and pelvis was obtained. T salvador [place] after the intravenous injection of contrast. AP and oblique images of the abdomen and pel vis were obtained at regular intervals up to 15 minutes. RENAL FUNCTION: GFR > 60. LIMITATIONS: None. FINDINGS: WASTEWATER DESIGN ENGINEER FILM: Surgical clips projecting within the gallbladder fossa and right lower quadra nt - correlate for prior appendectomy and cholecystectomy. There are no calcifications projecting wi thin the renal fossae, along the expected course of the ureters or within the urinary bladder. There are no dilated loops of bowel IMMEDIATE POST INJECTION: There is prompt renal uptake and excretion of the injected contrast without hydronephrosis, hydroureter or filling defects within the renal collecting system and ureters. POST VOID: No significant post void bladder residual and no evidence of uretal outflow obstruction. OTHER: No other findings. IMPRESSION: NO EVIDENCE OF OBSTRUCTIVE UROPATHY. TECHNICAL DOCUMENTATION: JOB ID: [id number] 2010 [employer]- All Rights Reserved Reading location - IP/workstation name: [email or web address]
[2020-05-18] MEDS: PROMETHAZINE HCL INJ 25 MG/1 ML VIAL IV PRN (20:13)
[2020-05-18] MEDS ORDERED: MORPHINE SULFATE 10 MG/ML INJ IV PRN (20:34)
--- NOTE | 2020-05-18 20:53 | PDOC CONSULTATION ---
Consultation Consult Date: 05/18/20 Provider Consulted: TIANA BUCKNER History of Present Illness Admission Date/PCP: 05/07/20 15:38 ROSEMARY ENAMORADO MD History of Present Illness: JAYLYN AUSTIN is a 49 year old female Patient who was admitted to the hospital on 05/07/2020 with abdominal pain, nausea, vomiting and diarrhea. She had called the office on 05/04/2020 complaining of a 1 week history of abdominal pain and diarrhea. She was diagnosed with left-sided ulcerative colitis about 6 weeks ago and had been using Delzicol and Canasa suppositories. She had rectosigmoid colitis up to 50 cm with patchy involvement of the descending colon and a single ulcer in the terminal ileum. On admission her lipase was 924 with a mild anemia and mild elevation in her WBC. She was initially managed as acute pancreatitis but after a few days of persistent diarrhea her ulcerative colitis medications was changed. She was started on IV steroids on 05/09/2020. Her initial CAT scan on 05/07/2020 showed minimal peripancreatic stranding and a decompressed descending and rectosigmoid colon with mild wall thickening. Over the last week her diarrhea has improved according to the patient though she is still having 6-7 small loose stools a day. Most of the stools has some mucus and blood in it. C. difficile toxin was negative on 05/10/2020. Her vital signs has been stable without any fever. Her CRP was 75 on 05/09/2020 and 20 on 05/13/2020. Her Solu-Medrol was increased from 60 mg daily to 80 mg a few days ago. She continues to have a constant burning pain that got worse shortly before I saw her tonight. She had been n.p.o. for 4 to 5 days and has had no significant pain until she had a clear liquid tray tonight. Now she is having intermittent mid and upper abdominal pain. There is some nausea but no vomi ting. Her lipase went up from 900 on admission to 1800 on 05/13/2020 and has gradually come back down to 900 on 05/18/2020. Her mesalamine enemas was discontinued for the suspicion that it may be contributing to her pancreatic disease. I will be holding the p.o. mesalamine today. Past Medical History Cardiac Medical History: Reports: Hyperlipidema, Hypertension GI Medical History: Reports: Ulcerative Colitis Skin Medical History: Reports: None Psychiatric Medical History: Reports: None Denies: Depression Traumatic Medical History: Reports: None Hematology: Reports: None Infectious Medical History: Reports: None Past Surgical History Past Surgical History: Reports: Appendectomy, Section, Cholecystectomy, Hysterectomy, Tubal Ligation Social History Smoking Status: Never Smoker Electronic Cigarette use?: No Frequency of Alcohol Use: None Hx Recreational Drug Use: No Drugs: None Hx Prescription Drug Abuse: No - Advance Directive Resuscitation Status: Full Code Family History Family History: Reviewed & Not Pertinent Parental Family History Reviewed: No Children Family History Reviewed: NA Sibling(s) Family History Reviewed.: NA Medication/Allergy Home Medications: Esomeprazole Magnesium [Nexium] 20 mg PO DAILY 05/07/20 Fluticasone Propionate [Flonase Nasal Rumsey 50 Mcg/Rumsey 16 gm] 2 sprays NAREB DAILY 05/07/20 Hydrochlorothiazide [Hydrodiuril 25 mg Tablet] 25 mg PO QAM 05/07/20 Mesalamine [Mesalamine Dr] 800 mg PO TID 05/07/20 Ondansetron HCl 4 mg PO Q8HP PRN 05/07/20 Allergies/Adverse Reactions: Sulfa (Sulfonamide Antibiotics) Allergy (Unknown, Verified 05/07/20 12:07) Review of Systems All systems: reviewed and no additional remarkable complaints except as stated Physical Exam Vital Signs: Temp Pulse Resp BP Pulse Ox 97.8 F 73 17 132/74 H 99 05/18/20 08:33 05/18/20 07:56 05/18/20 07:56 05/18/20 07:56 05/18/20 07:56 Intake & Output 05/17/20 05/18/20 05/19/20 06:59 06:59 06:59 Intake Total 4026 3120 1000 Balance 4026 3120 1000 Weight 95 kg 92 kg 92 kg Exam: General: Patient is alert and looks well. HEENT: There is no pallor or jaundice. PERRLA. Oropharynx normal Respiratory: No chest deformity. No respiratory distress. Chest wall palpitation was unremarkable. Breath sounds were normal Cardiovascular: Heart sounds 1 and 2 normal with no murmurs. Abdominal: Not distended. Soft and with no significant tenderness. No rebound or guarding. Liver and spleen not palpable. No ascites demonstrated. Bowel sounds active. Rectal examination was deferred. Extremities: No edema Neurological: Alert and oriented x4. Grossly nonfocal. Normal speech Skin: No significant rash Psychological: Normal affect Results Laboratory Results: 05/18/20 05:30 05/18/20 05:30 05/18/20 05/18/20 05/18/20 05:30 05:30 05:30 WBC 8.5 RBC 3.33 L Hgb 10.6 L Hct 31.3 L MCV 94 MCH 32.0 MCHC 34.0 RDW 14.2 H Plt Count 261 Seg Neutrophils % Not Reportable Sodium 137.3 Potassium 4.3 Chloride 103 Carbon Dioxide 28 Anion Gap 6 BUN 13 Creatinine 0.50 L Est GFR ( Amer) > 60 Glucose 127 H Calcium 8.7 Magnesium 2.3 Amylase 126 H Lipase 914.9 H 05/08/20 04:08 NT-Pro-B Natriuret Pep 65 Impressions: Abdomen/Pelvis CT 05/07/20 14:07 IMPRESSION: 1. Minimal peripancreatic stranding compatible with acute interstitial pancreatitis. No findings to suggest pancreatic necrosis. No significant collection. 2. Decompressed descending and rectosigmoid colon with mild diffuse wall thickening. Recommend correlation for evidence of colitis. 3. Hepatic steatosis. Cholecystectomy. Chest X-Ray 05/10/20 00:00 IMPRESSION: Good position of central line. No pneumothorax. Intravenous Pyelogram 05/18/20 00:00 IMPRESSION: NO EVIDENCE OF OBSTRUCTIVE UROPATHY. Assessment & Plan - Diagnosis (1) Left sided ulcerative colitis with rectal bleeding Is this a current diagnosis for this admission?: Yes Plan: She has significant left-sided ulcerative colitis at her last colonoscopy. She had a very high CRP on admission and continues to have frequent bloody stools that are small in amount. Overall her bowels has improved with the IV Solu- Medrol but I will perform an endoscopy to determine the severity of her colitis. If she has severe colitis we may need to consider Remicade. She has a benign abdomen and I doubt her abdominal pain is from ulcerative colitis. A CAT scan of abdomen will also help to evaluate the severity of her pancreatitis and colitis. She will undergo a colonoscopy and a CT of the abdomen. For now we should continue with the Solu-Medrol. (2) Abdominal pain Qualifiers: Abdominal location: lower abdomen, unspecified Qualified Code(s): R10.30 - Lower abdominal pain, unspecified Is this a current diagnosis for this admission?: Yes Plan: She has had a constant burning discomfort since admission with no significant exacerbation for the 4 to 5 days she was n.p.o. She started having more pain today after eating a clear liquid tray. I did not perceive significant tenderness on physical examination. She was scheduled for a CT to see how much pancreatic inflammation she has. We can continue with a clear liquid diet for now (3) Acute pancreatitis Qualifiers: Pancreatitis type: unspecified pancreatitis type Acute pancreatitis complication: unspecified Qualified Code(s): K85.90 - Acute pancreatitis w ithout necrosis or infection, unspecified Is this a current diagnosis for this admission?: Yes (4) DM2 (diabetes mellitus, type 2) Is this a current diagnosis for this admission?: Yes
[2020-05-18] MEDS ORDERED: TRAMADOL HCL 50 MG TABLET PO ONE (21:00)
[2020-05-19] MEDS: INSULIN LISPRO 100 UNIT/ML 3 ML VIAL SUBCUT SCH ×5 (00:02→23:34)
--- NOTE | 2020-05-19 05:26 | RADIOLOGY REPORT (SQ) ---
EXAM DESCRIPTION: CT ABD/PELVIS WITH IV ORAL IMAGES COMPLETED DATE/TIME: 05/19/2020 4:38 am REASON FOR STUDY: ulcerative colitis and pancreatitis COMPARISON: 05/07/2020 TECHNIQUE: CT scan of the abdomen and pelvis performed using helical scanning technique with dynamic intravenous contrast injection. No oral contrast. Images reviewed with lung, soft tissue, and bone windows. Reconstructed coronal and sagittal MPR images reviewed. Delayed images for evaluation of the urinary system also acquired. All images stored on PACS. All CT scanners at this facility use dose modulation, iterative reconstruction, and/or weight based d osing when appropriate to reduce radiation dose to as low as reasonably achievable (ALARA). [facility]: Dose Right [facility]: CareDose [facility]: Dose Right [facility]: Teradose 4D [facility]: Rallyware CONTRAST TYPE AND DOSE: contrast/concentration: Isovue 350.00 mmol/ml; Total Contrast Delivered: 100 .0 ml; Total Saline Delivered: 41.9 ml RENAL FUNCTION: BUN 13; creatinine 050 RADIATION DOSE: CT Rad equipment meets quality standard of care and radiation dose reduction techniq ues were employed. CTDIvol: 15.9 mGy. DLP: 1849 mGy-cm.. LIMITATIONS: None. FINDINGS: LOWER CHEST: No significant findings. No nodules or infiltrates. LIVER: Normal size. No masses. No dilated ducts. SPLEEN: Normal size. No focal lesions. PANCREAS: Re- demonstration of fullness of the pancreatic tail without focal inflammatory changes or discrete mass. GALLBLADDER: Surgically absent. ADRENAL GLANDS: No significant masses or asymmetry. RIGHT KIDNEY AND URETER: No solid masses. No significant calcifications. No hydronephrosis or hyd roureter. LEFT KIDNEY AND URETER: No solid masses. No significant calcifications. No hydronephrosis or hydr oureter. AORTA AND VESSELS: No aneurysm. No dissection. Renal arteries, SMA, celiac without stenosis. RETROPERITONEUM: No retroperitoneal adenopathy, hemorrhage or masses. BOWEL AND PERITONEAL CAVITY: Mild circumferential bowel wall thickening involving the transverse colo n and hepatic flexure without associated mesenteric fat stranding or other inflammatory changes. Thi s is not retrospectively present on comparison imaging. APPENDIX: Surgically absent. PELVIS: No mass. No free fluid. Normal bladder. ABDOMINAL WALL: No masses. No hernias. BONES: No significant or acute findings. OTHER: No other significant finding. IMPRESSION: Constellation of findings involving the transverse colon may represent early ulcerative colitis flare. Otherwise stable CT appearance of the abdomen and pelvis. TECHNICAL DOCUMENTATION: JOB ID: [id number] Quality ID # [id number]: Final reports with documentation of one or more dose reduction techniques (e.g., Au tomated exposure control, adjustment of the mA and/or kV according to patient size, use of iterative reconstruction technique) 2010 [employer]- All Rights Reserved Reading location - IP/workstation name: [email or web address]
[2020-05-19 08:00] LABS: C-REACTIVE PROTEIN 18.4 mg/L (<10.0)
[2020-05-19] MEDS: METHYLPREDNISOLONE INJ 40 MG/1 ML SDV IV SCH (10:18)
[2020-05-19] MEDS: FLUTICASONE NASAL SPRAY 50 MCG/SPRY 120 SPRAY/16 GM NAREB SCH (10:18)
[2020-05-19] MEDS: ENOXAPARIN SODIUM INJ 40 MG/0.4 ML DISP.SYRIN SUBCUT SCH (10:18)
[2020-05-19] MEDS: RINGERS SOLUTION,LACTATED 1,000 ML IV PRN ×3 (10:18→22:27)
[2020-05-19] MEDS ORDERED: GLUCAGON,HUMAN RECOMB 1 MG INJ ONE (17:20)
[2020-05-19] MEDS ORDERED: EPINEPHRINE INJ 1 MG/10 ML DISP.SYRIN ONE (17:31)
[2020-05-19] MEDS ORDERED: PROPOFOL INJ 200 MG/20 ML VIAL IV ONE (17:33)
--- NOTE | 2020-05-19 18:58 | PDOC PROGRESS REPORT ---
Subjective Date:: 05/19/20 Subjective:: NAEO. Having 5-6 BM/day while NPO. Reason For Visit: ACUTE PANCREATITIS Physical Exam Vital Signs: Temp Pulse Resp BP Pulse Ox 97.6 F 68 17 130/72 H 97 05/19/20 11:55 05/19/20 11:55 05/19/20 11:55 05/19/20 11:55 05/19/20 11:55 Intake & Output 05/18/20 05/19/20 05/20/20 06:59 06:59 06:59 Intake Total 3120 2500 1000 Balance 3120 2500 1000 Weight 92 kg 92 kg General appearance: PRESENT: no acute distress, cooperative Eye exam: ABSENT: scleral icterus Mouth exam: PRESENT: moist Throat exam: ABSENT: post pharyngeal erythema Neck exam: ABSENT: JVD Respiratory exam: PRESENT: clear to auscultation ned, unlabored Cardiovascular exam: PRESENT: RRR GI/Abdominal exam: PRESENT: distended, normal bowel sounds, soft, tenderness. ABSENT: firm, guarding, rebound, rigid Musculoskeletal exam: PRESENT: ambulatory Neurological exam: PRESENT: alert, awake, oriented to person, oriented to place, oriented to time, oriented to situation Psychiatric exam: PRESENT: appropriate affect Skin exam: ABSENT: jaundice Results Laboratory Results: 05/18/20 05:30 05/18/20 05:30 05/19/20 05/19/20 07:04 07:04 C-Reactive Protein 18.4 H Lipase 340.7 H 05/08/20 04:08 NT-Pro-B Natriuret Pep 65 Impressions: Chest X-Ray 05/10/20 00:00 IMPRESSION: Good position of central line. No pneumothorax. Intravenous Pyelogram 05/18/20 00:00 IMPRESSION: NO EVIDENCE OF OBSTRUCTIVE UROPATHY. Abdomen/Pelvis CT 05/18/20 20:32 IMPRESSION: Constellation of findings involving the transverse colon may represent early ulcerative colitis flare. Otherwise stable CT appearance of the abdomen and pelvis. Assessment and Plan - Diagnosis (1) Ulcerative colitis, acute Qualifiers: Digestive disease complication type: other complication Qualified Code(s): K51.918 - Ulcerative colitis, unspecified with other complication Is this a current diagnosis for this admission?: Yes (2) Obesity (BMI 30-39.9) Is this a current diagnosis for this admission?: Yes (3) Anemia Is this a current diagnosis for this admission?: Yes (4) Hyperglycemia Is this a current diagnosis for this admission?: Yes (5) Hypokalemia Is this a current diagnosis for this admission?: Yes (6) Hyponatremia Is this a current diagnosis for this admission?: Yes (7) DM2 (diabetes mellitus, type 2) Is this a current diagnosis for this admission?: Yes (8) Difficult intravenous access Is this a current diagnosis for this admission?: Yes - Plan Summary Summary: Mrs. JAYLYN AUSTIN is a 49 year old female with PMH of ulcerative colitis who presented with crampy abdominal pain, 10+ bloody BM per day x10 days and recent onset of nausea/vomiting x4 days. Patient has history of chronic diarrhea secondary to ulcerative colitis, but normally has 5-6 BM/day. Dr. Parks is her research biostatistician. She was just recently diagnosed with UC a couple months ago, and underwent EGD/colonoscopy with Dr. Parks at that time. She has been taking mesalamine faithfully TID for about 6 weeks and has no prior history of steroid usage. She has had no sick contacts; no one at home has had vomiting/diarrhea. She denies fevers/chills. Acute, Severe Ulcerative Colitis Flare: on admission, she was initially started on IVF, pain and anti-emetic medications due to concern for possible pancreatitis. Her lipase was elevated at 924. She has no history of ETOH usage, is s/p remote cholecystectomy and has normal triglycerides. CT A/P on admission was notable for "minimal peripancreatic stranding" as well as "decompressed descending and rectosigmoid colon with mild diffuse wall thickening." On 05/09, she had been receiving treatment for possible pancreatitis x3 days and her symptoms had continued to get worse. Given that she was having 10+ bloody BM per day, and there was evidence of colitis on her initial CT, she met criteria for acute severe UC flare with her bloody stool frequency, anemia and elevated CRP, so she was started on treatment with steroids on 05/09. ESR/CRP very elevated. - She is at risk for developing fulminant UC and should start having serial abdominal XR if she develops worsening abdominal pain or distention. She had no evidence of bowel dilation on admission CT. Abdominal examination today is benign, soft, with no tenderness/rebound/guarding. Her pain is improved with steroids but she continues to have 14 BM in the last 24 hours. - GI consulted - continue steroids + PPI therapy (D1: 05/09) - awaiting colonoscopy results and GI recommendations Normocytic Anemia: likely combination of anemia of chronic disease and chronic blood loss - hgb has been stable between 10- this admission - transfuse for goal hgb >7 Dehydration: due to diarrhea and poor oral intake - resolved with IVF Hypokalemia: due to diarrhea and poor oral intake - resolved with IV and PO repletion Hypovolemic Hyponatremia: due to diarrhea and poor oral intake - resolved with IVF DM2: HbA1c 7.0% - encourage diet, exercise and weight loss - hold off on metformin initiation given chronic diarrhea - SSI while inpatient - increase Lantus 10-->15 units daily (glucose elevated in the s/o steroids) - DM educator and child development professor consulted Obesity (BMI 35.9) - encourage diet, exercise and weight loss Lack of IV access - s/p central line placement on 05/10 DVT ppx: Lovenox - Time Time Spent with patient: 35 or more minutes Anticipated Discharge Disposition: Home, Self Care Anticipated Discharge Timeframe: within 72 hours
--- NOTE | 2020-05-19 19:14 | Operative Report ---
Operative Report DATE OF SURGERY: 05/19/20 Operative Report: Pre-op diagnosis: Abdominal pain and history of ulcerative colitis Post-op diagnosis: 1. Normal EGD 2. Near diffuse ulcerative colitis from rectum to hepatic flexure Surgery: Upper endoscopy with biopsy and Colonoscopy with biopsy Medications: As per anesthesia Tissue removed: Gastric antral, transverse and sigmoid colon biopsies Procedure: After informed consent obtained from patient, patient's pharynx was sprayed with Hurricane and conscious sedation was achieved. The upper endoscope was then inserted into the esophagus under direct vision and advanced into the stomach and further into the duodenum. Detailed examination of the duodenum, stomach and the esophagus was then performed. A digital rectal examination was performed and this was unremarkable. The colonoscope was inserted into the rectum and advanced to the cecum. The appendi ceal orifice and the terminal ileum were both identified. The mucosa was examined into details as the colonoscope was slowly pulled out of the patient. The endoscope was retroflexed in the rectum. Patient tolerated the procedure well. Findings Esophagus: Normal Stomach: Normal Duodenum: Normal View was slightly limited due to retained stool. Procedure was done without prep. There was diffuse loss of vascular markings, erythema, and edema starting from the rectum up to the hepatic flexure. The transverse colon was the most involved. There are multiple small to moderate sized ulcers noted in the transverse colon some of which were deep. Biopsies were taken from the transverse and sigmoid colon. Most of the ascending colon and the cecum were normal. Plan: Continue steroids and switch Solu-Medrol to prednisone. I will add Cipro and Flagyl and also start her on mercaptopurine. OPERATION: .
--- NOTE | 2020-05-19 19:20 | PDOC PROGRESS REPORT ---
Subjective Date:: 05/19/20 Reason For Visit: ACUTE PANCREATITIS Physical Exam Vital Signs: Temp Pulse Resp BP Pulse Ox 97.3 F 77 15 96/61 L 97 05/19/20 18:51 05/19/20 19:01 05/19/20 19:01 05/19/20 19:01 05/19/20 19:01 Intake & Output 05/18/20 05/19/20 05/20/20 06:59 06:59 06:59 Intake Total 3120 2500 1000 Balance 3120 2500 1000 Weight 92 kg 92 kg Results Laboratory Results: 05/18/20 05:30 05/18/20 05:30 05/19/20 05/19/20 07:04 07:04 C-Reactive Protein 18.4 H Lipase 340.7 H 05/08/20 04:08 NT-Pro-B Natriuret Pep 65 Impressions: Chest X-Ray 05/10/20 00:00 IMPRESSION: Good position of central line. No pneumothorax. Intravenous Pyelogram 05/18/20 00:00 IMPRESSION: NO EVIDENCE OF OBSTRUCTIVE UROPATHY. Abdomen/Pelvis CT 05/18/20 20:32 IMPRESSION: Constellation of findings involving the transverse colon may represent early ulcerative colitis flare. Otherwise stable CT appearance of the abdomen and pelvis. Assessment & Plan - Diagnosis (1) Left sided ulcerative colitis with rectal bleeding Is this a current diagnosis for this admission?: Yes Plan: She had a colonoscopy today that showed moderate ulcerative colitis involving the rectum up to the hepatic flexure. Her diarrhea has actually been improving since she was started on steroids. The plan is to continue with prednisone 40 mg as outpatient for at least a month prior starting to taper. I also added Cipro and Flagyl and started her on mercaptopurine 50 mg daily. I will send a prescription for balsalazide as outpatient. I will see her in the office in 1 to 2 weeks. (2) Acute pancreatitis Qualifiers: Pancreatitis type: unspecified pancreatitis type Acute pancreatitis complication: unspecified Qualified Code(s): K85.90 - Acute pancreatitis without necrosis or infection, unspecified Is this a current diagnosis for this admission?: Yes Plan: She does not have CT evidence for acute pancreatitis though her lipase has been elevated. The fullness in her pancreatic tail has actually been present since 2006 according to the radiologist. Her elevated lipase may be related to her ulcerative colitis and less likely from mesalamine. We will continue to hold mesalamine which will be switched to balsalazide. (3) Abdominal pain Qualifiers: Abdominal location: lower abdomen, unspecified Qualified Code(s): R10.30 - Lower abdominal pain, unspecified Is this a current diagnosis for this admission?: Yes (4) DM2 (diabetes mellitus, type 2) Is this a current diagnosis for this admission?: Yes - Time Time Spent with patient: 15-24 minutes
[2020-05-19] MEDS: PREDNISONE 20 MG TABLET PO SCH (22:23)
[2020-05-19] MEDS: METRONIDAZOLE 500 MG TABLET PO SCH (22:23)
[2020-05-19] MEDS: CIPROFLOXACIN HCL 500 MG TABLET PO SCH (22:23)
[2020-05-19] MEDS: PANTOPRAZOLE SODIUM 40 MG VIAL IV SCH (22:28)
[2020-05-20] MEDS: RINGERS SOLUTION,LACTATED 1,000 ML IV PRN (03:29)
[2020-05-20] MEDS: METRONIDAZOLE 500 MG TABLET PO SCH ×3 (05:22→23:13)
[2020-05-20] MEDS: INSULIN LISPRO 100 UNIT/ML 3 ML VIAL SUBCUT SCH ×3 (05:27→23:38)
[2020-05-20 06:37] LABS: HEPATITS B SURFACE ANTIGEN Negative (Negative)
[2020-05-20 07:03] LABS: HEPATITIS C VIRUS ANTIBODY <0.1 s/co ratio (0.0-0.9)
[2020-05-20 07:10] LABS: HEMATOCRIT 34.7 % (36.0-47.0); HEMOGLOBIN 12.1 g/dL (12.0-15.5); MEAN CORPUSCULAR HEMOGLOBIN 32.7 pg (27.0-33.4); MEAN CORPUSCULAR HGB CONC 34.9 g/dL (32.0-36.0); MEAN CORPUSCULAR VOLUME 94 fl (80-97); PLATELET COUNT 276 10^3/uL (150-450); RED CELL DISTRIBUTION WIDTH 14.7 % (11.5-14.0)
[2020-05-20 07:30] LABS: ANION GAP 9 (5-19); BLOOD UREA NITROGEN 10 mg/dL (7-20); CARBON DIOXIDE 29 mmol/L (22-30); CHLORIDE 103 mmol/L (98-107); GLUCOSE 153 mg/dL (75-110); PHOSPHORUS 3.9 mg/dL (2.5-4.5); POTASSIUM 3.8 mmol/L (3.6-5.0)
[2020-05-20] MEDS ORDERED: RINGERS SOLUTION,LACTATED 1,000 ML IV PRN (09:24)
[2020-05-20] MEDS: ENOXAPARIN SODIUM INJ 40 MG/0.4 ML DISP.SYRIN SUBCUT SCH (09:45)
[2020-05-20] MEDS: MERCAPTOPURINE 50 MG TABLET PO SCH (09:46)
[2020-05-20] MEDS: CIPROFLOXACIN HCL 500 MG TABLET PO SCH ×2 (09:47→23:13)
[2020-05-20] MEDS: PREDNISONE 20 MG TABLET PO SCH (09:47)
[2020-05-20] MEDS: FLUTICASONE NASAL SPRAY 50 MCG/SPRY 120 SPRAY/16 GM NAREB SCH (09:54)
[2020-05-20] MEDS: PANTOPRAZOLE SODIUM 40 MG VIAL IV SCH (10:35)
--- NOTE | 2020-05-20 12:18 | PDOC PROGRESS REPORT ---
Subjective Date:: 05/20/20 Subjective:: NAEO. She has been tolerating a full liquid diet this morning. Reason For Visit: ACUTE PANCREATITIS Physical Exam Vital Signs: Temp Pulse Resp BP Pulse Ox 97.7 F 71 16 127/71 H 91 L 05/20/20 11:01 05/20/20 11:01 05/20/20 11:01 05/20/20 11:01 05/20/20 11:01 Intake & Output 05/19/20 05/20/20 05/21/20 06:59 06:59 06:59 Intake Total 2500 3550 1000 Balance 2500 3550 1000 Weight 92 kg 95 kg General appearance: PRESENT: no acute distress, cooperative Eye exam: ABSENT: scleral icterus Mouth exam: PRESENT: moist Throat exam: ABSENT: post pharyngeal erythema Neck exam: ABSENT: JVD Respiratory exam: PRESENT: clear to auscultation ned, unlabored Cardiovascular exam: PRESENT: RRR GI/Abdominal exam: PRESENT: normal bowel sounds, soft. ABSENT: tenderness Extremities exam: ABSENT: pedal edema Neurological exam: PRESENT: alert, awake Psychiatric exam: PRESENT: appropriate affect Skin exam: ABSENT: jaundice, rash Results Laboratory Results: 05/20/20 06:47 05/20/20 06:47 05/20/20 05/20/20 06:47 06:47 WBC 6.0 RBC 3.70 L Hgb 12.1 Hct 34.7 L MCV 94 MCH 32.7 MCHC 34.9 RDW 14.7 H Plt Count 276 Sodium 140.7 Potassium 3.8 Chloride 103 Carbon Dioxide 29 Anion Gap 9 BUN 10 Creatinine 0.65 Est GFR ( Amer) > 60 Glucose 153 H Calcium 9.0 Phosphorus 3.9 Magnesium 2.1 05/08/20 04:08 NT-Pro-B Natriuret Pep 65 Impressions: Chest X-Ray 05/10/20 00:00 IMPRESSION: Good position of central line. No pneumothorax. Intravenous Pyelogram 05/18/20 00:00 IMPRESSION: NO EVIDENCE OF OBSTRUCTIVE UROPATHY. Abdomen/Pelvis CT 05/18/20 20:32 IMPRESSION: Constellation of findings involving the transverse colon may represent early ulcerative colitis flare. Otherwise stable CT appearance of the abdomen and pelvis. Assessment and Plan - Diagnosis (1) Ulcerative colitis, acute Qualifiers: Digestive disease complication type: other complication Qualified Code(s): K51.918 - Ulcerative colitis, unspecified with other complication Is this a current diagnosis for this admission?: Yes (2) Obesity (BMI 30-39.9) Is this a current diagnosis for this admission?: Yes (3) Anemia Is this a current diagnosis for this admission?: Yes (4) Hyperglycemia Is this a current diagnosis for this admission?: Yes (5) Hypokalemia Is this a current diagnosis for this admission?: Yes (6) Hyponatremia Is this a current diagnosis for this admission?: Yes (7) DM2 (diabetes mellitus, type 2) Is this a current diagnosis for this admission?: Yes (8) Difficult intravenous access Is this a current diagnosis for this admission?: Yes - Plan Summary Summary: Mrs. JAYLYN AUSTIN is a 49 year old female with PMH of ulcerative colitis who presented with crampy abdominal pain, 10+ bloody BM per day x10 days and recent onset of nausea/vomiting x4 days. Patient has history of chronic diarrhea secondary to ulcerative colitis, but normally has 5-6 BM/day. Dr. Parks is her metal washing machine operator. She was just recently diagnosed with UC a couple months prior to admission, and underwent EGD/colonoscopy with Dr. Parks at that time. She has been taking mesalamine faithfully TID for about 6 weeks and has no prior history of steroid usage. She has had no sick contacts; no one at home has had vomiting/diarrhea. She denies fevers/chills. Acute, Severe Ulcerative Colitis Flare: on admission, she was initially started on IVF, pain and anti-emetic medications due to concern for possible pancreatitis. Her lipase was elevated at 924. She has no history of ETOH usage, is s/p remote cholecystectomy and has normal triglycerides. CT A/P on admission was notable for "minimal peripancreatic stranding" as well as "decompressed desc ending and rectosigmoid colon with mild diffuse wall thickening." On 05/09, she had been receiving treatment for possible pancreatitis x3 days and her symptoms had continued to get worse. Given that she was having 10+ bloody BM per day, and there was evidence of colitis on her initial CT, she met criteria for acute severe UC flare with her bloody stool frequency, anemia and elevated CRP, so she was started on treatment with steroids on 05/09. - GI consulted and she underwent repeat EGD/colonoscopy on 05/19 * EGD: normal * colonoscopy: UC from rectum to hepatic flexure, multiple deep ulcers in the transverse colon * biopsies pending - continue high dose steroids (Prednisone 40 mg daily) for at least one month, per GI (D1: 05/09) * ESR 95 --> 48 with steroids * CRP 75 --> 18 with steroids - start mercaptopurine and balsalazide (instead of mesalamine) and follow up with GI in 1 week as outpatient - today, will start diet and monitor oral intake, if she does well, plan to discharge home tomorrow Normocytic Anemia: likely combination of anemia of chronic disease and chronic blood loss - hgb has been stable this admission Dehydration: due to diarrhea and poor oral intake - resolved with IVF Hypokalemia: due to diarrhea and poor oral intake - resolved with IV and PO repletion Hypovolemic Hyponatremia: due to diarrhea and poor oral intake - resolved with IVF DM2: HbA1c 7.0% - encourage diet, exercise and weight loss - hold off on metformin initiation given chronic diarrhea - DM educator and floriculturist consulted - given her exceeding poor oral intake, will not initiate any oral anti-diabetic agents at this time - recommend close PCP follow up and outpatient glucose monitoring, especially as she will be on high dose steroids for the next month or so before beginning a steroid taper Obesity (BMI 35.9) - encourage diet, exercise and weight loss Lack of IV access - s/p central line placement on 05/10 (will remove prior to discharge) DVT ppx: Lovenox - Time Time Spent with patient: 35 or more minutes Anticipated Discharge Disposition: Home, Self Care Anticipated Discharge Timeframe: within 24 hours
[2020-05-20] MEDS ORDERED: DEXTROSE 40% GEL 15 GM TUBE X 2 PO PRN (21:00)
[2020-05-20] MEDS ORDERED: DEXTROSE 40% GEL 15 GM TUBE PO PRN (21:00)
[2020-05-20] MEDS ORDERED: DEXTROSE 50%-WATER SYRINGE 25 GM/50 ML DOSE IV PRN (21:00)
[2020-05-20] MEDS ORDERED: DEXTROSE 50%-WATER SYRINGE 12.5 GM/25 ML DOSE IV PRN (21:00)
[2020-05-20] MEDS ORDERED: GLUCAGON,HUMAN RECOMB 1 MG INJ IM PRN (21:00)
[2020-05-21] MEDS: METRONIDAZOLE 500 MG TABLET PO SCH (05:10)
[2020-05-21] MEDS ORDERED: PANTOPRAZOLE SODIUM 40 MG TABLET.DR PO SCH (06:00)
[2020-05-21] MEDS: INSULIN LISPRO 100 UNIT/ML 3 ML VIAL SUBCUT SCH ×2 (08:48→11:37)
[2020-05-21] MEDS: CIPROFLOXACIN HCL 500 MG TABLET PO SCH (10:52)
[2020-05-21] MEDS: PREDNISONE 20 MG TABLET PO SCH (10:52)
[2020-05-21] MEDS: ENOXAPARIN SODIUM INJ 40 MG/0.4 ML DISP.SYRIN SUBCUT SCH (10:53)
[2020-05-21] MEDS: MERCAPTOPURINE 50 MG TABLET PO SCH (10:53)
[2020-05-21] MEDS: FLUTICASONE NASAL SPRAY 50 MCG/SPRY 120 SPRAY/16 GM NAREB SCH (10:53)
[2020-05-21 11:40] VITALS: BP 140/70
--- NOTE | 2020-05-21 15:44 | PDOC DISCHARGE SUMMARY ---
Impression - Admit/DC Date/PCP Admission Date/Primary Care Provider: 05/07/20 15:38 ROSEMARY ENAMORADO MD Discharge Date: 05/21/20 - Discharge Diagnosis (1) Ulcerative colitis, acute Is this a current diagnosis for this admission?: Yes (2) Obesity (BMI 30-39.9) Is this a current diagnosis for this admission?: Yes (3) Anemia Is this a current diagnosis for this admission?: Yes (4) Hyperglycemia Is this a current diagnosis for this admission?: Yes (5) Hypokalemia Is this a current diagnosis for this admission?: Yes (6) Hyponatremia Is this a current diagnosis for this admission?: Yes (7) DM2 (diabetes mellitus, type 2) Is this a current diagnosis for this admission?: Yes (8) Difficult intravenous access Is this a current diagnosis for this admission?: Yes - Assessment Summary: Mrs. JAYLYN AUSTIN is a 49 year old female with PMH of ulcerative colitis who presented with crampy abdominal pain, 10+ bloody BM per day x10 days and recent onset of nausea/vomiting x4 days. Patient has history of chronic diarrhea secondary to ulcerative colitis, but normally has 5-6 BM/day. Dr. Parks is her platform consultant. She was just recently diagnosed with UC a couple months prior to admission, and underwent EGD/colonoscopy with Dr. Parks at that time. She has been taking mesalamine faithfully TID for about 6 weeks and has no prior history of steroid usage. She has had no sick contacts; no one at home has had vomiting/diarrhea. She denies fevers/chills. Acute, Severe Ulcerative Colitis Flare: on admission, she was initially started on IVF, pain and anti-emetic medications due to concern for possible pancreatitis. Her lipase was elevated at 924. She has no history of ETOH usage, is s/p remote cholecystectomy and has normal triglycerides. CT A/P on admission was notable for "minimal peripancreatic stranding" as well as "decompressed descending and rectosigmoid colon with mild diffuse wall thickening." On 05/09, she had been receiving treatment for possible pancreatitis x3 days and her symptoms had continued to get worse. Given that she was having 10+ bloody BM per day, and there was evidence of colitis on her initial CT, she met criteria for acute severe UC flare with her bloody stool frequency, anemia and elevated CRP, so she was started on treatment with steroids on 05/09. - GI consulted and she underwent repeat EGD/colonoscopy on 05/19 * EGD: normal * colonoscopy: UC from rectum to hepatic flexure, multiple deep ulcers in the transverse colon * biopsies pending - continue high dose steroids (Prednisone 40 mg daily) for at least one month, per GI (D1: 05/09) * ESR 95 --> 48 with steroids * CRP 75 --> 18 with steroids - start mercaptopurine and balsalazide (instead of mesalamine) and follow up with GI in 1 week as outpatient - by discharge, she was having 5-6 BM per day Normocytic Anemia: likely combination of anemia of chronic disease and chronic blood loss - hgb has been stable this admission Dehydration: due to diarrhea and poor oral intake - resolved with IVF Hypokalemia: due to diarrhea and poor oral intake - resolved with IV and PO repletion Hypovolemic Hyponatremia: due to diarrhea and poor oral intake - resolved with IVF DM2: HbA1c 7.0% - encourage diet, exercise and weight loss - hold off on metformin initiation given chronic diarrhea and chronic abdominal pain - DM educator and loan manager consulted - she was started on glipizide 2.5 mg PO daily on discharge - recommend close PCP follow up and outpatient glucose monitoring, especially as she will be on high dose steroids for the next month or so before beginning a steroid taper Obesity (BMI 37) - encourage diet, exercise and weight loss - Additional Information Resuscitation Status: Full Code Discharge Diet: Diabetic, Full Liquids Discharge Activity: Activity As Tolerated Referrals: ROSEMARY ENAMORADO MD [Primary Care Provider] - 05/18/20 3:15 pm Prescriptions: Ciprofloxacin HCl [Cipro 500 mg Tablet] 500 mg PO Q12 #14 tablet Prednisone [Deltasone 20 mg Tablet] 40 mg PO DAILY #60 tablet Metronidazole [Flagyl 500 mg Tablet] 500 mg PO Q8 #21 tablet Glipizide [Glucotrol Xl 2.5 mg Tab.er] 2.5 mg PO QAM #30 tab.er.24 Home Medications: Esomeprazole Magnesium [Nexium] 20 mg PO DAILY 05/07/20 Fluticasone Propionate [Flonase Nasal [place] 50 Mcg/[place] 16 gm] 2 sprays NAREB DAILY 12/03/20 Ondansetron HCl 4 mg PO Q8HP PRN 05/07/20 Ciprofloxacin HCl [Cipro 500 mg Tablet] 500 mg PO Q12 #14 tablet 05/20/20 Mercaptopurine [Purinethol 50 mg Tablet] 50 mg PO DAILY tablet 05/20/20 Metronidazole [Flagyl 500 mg Tablet] 500 mg PO Q8 #21 tablet 05/20/20 Prednisone [Deltasone 20 mg Tablet] 40 mg PO DAILY #60 tablet 05/20/20 Glipizide [Glucotrol Xl 2.5 mg Tab.er] 2.5 mg PO QAM #30 tab.er.24 05/21/20 History of Present Illiness History of Present Illness: JAYLYN AUSTIN is a 49 year old female Physical Exam Vital Signs: Temp Pulse Resp BP Pulse Ox 97.7 F 76 16 140/70 H 98 05/21/20 11:38 05/21/20 11:38 05/21/20 11:38 05/21/20 11:38 05/21/20 11:38 Intake & Output 05/20/20 05/21/20 05/22/20 06:59 06:59 06:59 Intake Total 3550 1600 Balance 3550 1600 Weight 95 kg 95.2 kg Results Laboratory Results: WBC 6.0 10^3/uL (4.0-10.5) 05/20/20 06:47 RBC 3.70 10^6/uL (3.72-5.28) L 05/20/20 06:47 Hgb 12.1 g/dL (12.0-15.5) 05/20/20 06:47 Hct 34.7 % (36.0-47.0) L 05/20/20 06:47 MCV 94 fl (80-97) 05/20/20 06:47 MCH 32.7 pg (27.0-33.4) 05/20/20 06:47 MCHC 34.9 g/dL (32.0-36.0) 05/20/20 06:47 RDW 14.7 % (11.5-14.0) H 05/20/20 06:47 Plt Count 276 10^3/uL (150-450) 05/20/20 06:47 Lymph % (Auto) Not Reportable 05/18/20 05:30 [place] % (Auto) Not Reportable 05/18/20 05:30 Eos % (Auto) Not Reportable 05/18/20 05:30 Baso % (Auto) Not Reportable 05/18/20 05:30 Reticulocyte # 0.063 10^6/uL (0.028-0.122) 05/09/20 05:24 Absolute Neuts (auto) Not Reportable 05/18/20 05:30 Absolute Lymphs (auto) Not Reportable 05/18/20 05:30 Absolute Monos (auto) Not Reportable 05/18/20 05:30 Absolute Eos (auto) Not Reportable 05/18/20 05:30 Absolute Basos (auto) Not Reportable 05/18/20 05:30 Total Counted 100 05/18/20 05:30 Seg Neutrophils % Not Reportable 05/18/20 05:30 Seg Neuts % (Manual) 94 % (42-78) H 05/18/20 05:30 Lymphocytes % (Manual) 5 % (13-45) L 05/18/20 05:30 Monocytes % (Manual) 1 % (3-13) L 05/18/20 05:30 Eosinophils % (Manual) 0 % (0-6) 05/18/20 05:30 Basophils % (Manual) 0 % (0-2) 05/18/20 05:30 Abs Neuts (Manual) 8.0 10^3/uL (1.7-8.2) 05/18/20 05:30 Abs Lymphs (Manual) 0.4 10^3/uL (0.5-4.7) L 05/18/20 05:30 Abs Monocytes (Manual) 0.1 10^3/uL (0.1-1.4) 05/18/20 05:30 Absolute Eos (Manual) 0.0 10^3/uL (0.0-0.6) 05/18/20 05:30 Abs Basophils (Manual) 0.0 10^3/uL (0.0-0.2) 05/18/20 05:30 Platelet Estimate Cancelled 05/17/20 08:00 Platelet Comment ADEQUATE 05/18/20 05:30 Anisocytosis SLIGHT 05/13/20 07:43 RBC Morph Comment NORMO-CYTIC/CHROMIC 05/18/20 05:30 ESR 48 mm/hr (0-30) H 05/17/20 10:33 Retic Count (auto) 1.92 % (0.66-2.85) 05/09/20 05:24 PT 13.9 SEC (11.4-15.4) 05/10/20 12:12 INR 1.05 05/10/20 12:12 Sodium 140.7 mmol/L (137-145) 05/20/20 06:47 Potassium 3.8 mmol/L (3.6-5.0) 05/20/20 06:47 Chloride 103 mmol/L (98-107) 05/20/20 06:47 Carbon Dioxide 29 mmol/L (22-30) 05/20/20 06:47 Anion Gap 9 (5-19) 05/20/20 06:47 BUN 10 mg/dL (7-20) 05/20/20 06:47 Creatinine 0.65 mg/dL (0.52-1.25) 05/20/20 06:47 Est GFR ( Amer) > 60 (>60) 05/20/20 06:47 Est GFR (MDRD) Non-Af > 60 (>60) 05/20/20 06:47 Glucose 153 mg/dL (75-110) H 05/20/20 06:47 POC Glucose 119 mg/dL (70-110) H 05/21/20 11:36 Hemoglobin A1c % 7.0 % (4.7-6.0) H 05/08/20 04:08 Calcium 9.0 mg/dL (8.4-10.2) 05/20/20 06:47 Phosphorus 3.9 mg/dL (2.5-4.5) 05/20/20 06:47 Magnesium 2.1 mg/dL (1.6-2.3) 05/20/20 06:47 Iron 15.2 ug/dL (37-170) L 05/09/20 05:24 TIBC 231 ug/dL (250-450) L 05/09/20 05:24 % Saturation 7 % 05/09/20 05:24 Ferritin 126.00 ng/mL (11.1-264.0) 05/09/20 05:24 Total Bilirubin 0.5 mg/dL (0.2-1.3) 05/15/20 05:42 Direct Bilirubin 0.2 mg/dL (0.0-0.4) 05/15/20 05:42 Neonat Total Bilirubin Not Reportable 05/15/20 05:42 Neonat Direct Bilirubin Not Reportable 05/15/20 05:42 Neonat Indirect Bili Not Reportable 05/15/20 05:42 AST 32 U/L (14-36) 05/15/20 05:42 ALT 39 U/L (<35) H 05/15/20 05:42 Alkaline Phosphatase 65 U/L (38-126) 05/15/20 05:42 C-Reactive Protein 18.4 mg/L (<10.0) H 05/19/20 07:04 NT-Pro-B Natriuret Pep 65 pg/mL (<125) 05/08/20 04:08 Total Protein 6.2 g/dL (6.3-8.2) L 05/15/20 05:42 Albumin 3.4 g/dL (3.5-5.0) L 05/15/20 05:42 Triglycerides 149 mg/dL (<150) 05/08/20 04:08 Cholesterol 162.05 mg/dL (0-200) 05/08/20 04:08 LDL Cholesterol Direct 113 mg/dL (<100) H 05/08/20 04:08 VLDL Cholesterol 30.0 mg/dL (10-31) 05/08/20 04:08 HDL Cholesterol 29 mg/dL (>40) L 05/08/20 04:08 Amylase 126 U/L (30-110) H 05/18/20 05:30 Lipase 340.7 U/L (23-300) H 05/19/20 07:04 Vitamin B12 > 1000.0 pg/mL (239-931) H 05/09/20 05:24 Folate 18.80 ng/mL (>2.76) 05/09/20 05:24 TSH 1.55 uIU/mL (0.47-4.68) 05/08/20 04:08 Urine Color STRAW 05/15/20 18:40 Urine Appearance CLEAR 05/15/20 18:40 Urine pH 8.0 (5.0-9.0) 05/15/20 18:40 Ur Specific [place] 1.012 05/15/20 18:40 Urine Protein NEGATIVE mg/dL (NEGATIVE) 05/15/20 18:40 Urine Glucose (UA) NEGATIVE mg/dL (NEGATIVE) 05/15/20 18:40 Urine Ketones 20 mg/dL (NEGATIVE) H 05/15/20 18:40 Urine Blood NEGATIVE (NEGATIVE) 05/15/20 18:40 Urine Nitrite NEGATIVE (NEGATIVE) 05/15/20 18:40 Urine Bilirubin NEGATIVE (NEGATIVE) 05/15/20 18:40 Urine Urobilinogen NEGATIVE mg/dL (<2.0) 05/15/20 18:40 Ur Leukocyte Esterase NEGATIVE (NEGATIVE) 05/15/20 18:40 Urine WBC (Auto) 2 /HPF 05/15/20 18:40 Urine RBC (Auto) 0 /HPF 05/15/20 18:40 U Hyaline Cast (Auto) Cancelled 05/07/20 12:51 Urine Bacteria (Auto) TRACE /HPF 05/15/20 18:40 Urine Red Cell Clumps Cancelled 05/07/20 12:51 Urine WBC Clumps Cancelled 05/07/20 12:51 Squamous Epi Cells Auto <1 /HPF 05/15/20 18:40 U Non-Squamous Epis Auto Cancelled 05/07/20 12:51 Calcium Carbonate Cryst Cancelled 05/07/20 12:51 Calcium Phosphate Cryst Cancelled 05/07/20 12:51 Calcium Oxalate Cr Auto Cancelled 05/07/20 12:51 Leucine Crystals Cancelled 05/07/20 12:51 Cystine Crystals Cancelled 05/07/20 12:51 Uric Acid Cryst (Auto) Cancelled 05/07/20 12:51 Triple Phos Cryst (Auto) Cancelled 05/07/20 12:51 Tyrosine Crystals Cancelled 05/07/20 12:51 Amorphous Sediment Auto Cancelled 05/07/20 12:51 Cellular Casts Cancelled 05/07/20 12:51 Epithelial Casts (Auto) Cancelled 05/07/20 12:51 Fatty Casts Cancelled 05/07/20 12:51 Granular Casts (Auto) Cancelled 05/07/20 12:51 Waxy Casts (Auto) Cancelled 05/07/20 12:51 Broad Casts Cancelled 05/07/20 12:51 RBC Casts (Auto) Cancelled 05/07/20 12:51 WBC Casts (Auto) Cancelled 05/07/20 12:51 Urine Mucus (Auto) RARE /LPF 05/07/20 15:10 U Trichomonas (Auto) Cancelled 05/07/20 12:51 Ur Yeast w Hyphae Cancelled 05/07/20 12:51 Urine Yeast (Budding) Cancelled 05/07/20 12:51 Urine Ascorbic Acid NEGATIVE (NEGATIVE) 05/15/20 18:40 Stl C. Difficile GDH Ag NEGATIVE (NEGATIVE) 05/10/20 06:34 Stl C.difficile Tox A&B NEGATIVE (NEGATIVE) 05/10/20 06:34 Hepatitis A IgM Ab Negative (Negative) 05/19/20 07:04 Hep Bs Antigen Negative (Negative) 05/19/20 07:04 Hep B Core IgM Ab Negative (Negative) 05/19/20 07:04 Hepatitis C Antibody <0.1 s/co ratio (0.0-0.9) 05/19/20 07:04 HIV 1&2 Antibody NEGATIVE (NEGATIVE) 05/19/20 07:04 Influenza A (RT-PCR) NEGATIVE (NEGATIVE) 05/19/20 13:46 Influenza B (RT-PCR) NEGATIVE (NEGATIVE) 05/19/20 13:46 RSV (RT-PCR) NEGATIVE (NEGATIVE) 05/19/20 13:46 SARS-CoV-2 Rap RNA(RT-PCR) NEGATIVE (NEGATIVE) 05/19/20 13:46 Slides for Path Review Cancelled 05/17/20 08:00 05/08/20 04:08 NT-Pro-B Natriuret Pep 65 Impressions: Abdomen/Pelvis CT 05/07/20 14:07 IMPRESSION: 1. Minimal peripancreatic stranding compatible with acute interstitial pancreatitis. No findings to suggest pancreatic necrosis. No significant collection. 2. Decompressed descending and rectosigmoid colon with mild diffuse wall thickening. Recommend correlation for evidence of colitis. 3. Hepatic steatosis. Cholecystectomy. Chest X-Ray 05/10/20 00:00 IMPRESSION: Good position of central line. No pneumothorax. Intravenous Pyelogram 05/18/20 00:00 IMPRESSION: NO EVIDENCE OF OBSTRUCTIVE UROPATHY. Abdomen/Pelvis CT 05/18/20 20:32 IMPRESSION: Constellation of findings involving the transverse colon may represent early ulcerative colitis flare. Otherwise stable CT appearance of the abdomen and pelvis. Stroke Is this a Stroke Patient?: No Acute Heart Failure Is this a Heart Failure Patient?: No
[2020-05-25 18:39] LABS: TPMT ACTIVITY 23.4 (.)
== END 2020-05-21 12:00 | disposition home or self-care (01) | DRG 387 ==
LOC: ER 11:41 → EH 15:38 → 2N 17:35 → 4S 18:28 → 2N 05-19 21:54
PROVIDERS: ADMIT Internal Medicine; ATTEND Hospitalist
PROC: 02HV33Z Insertion of Infusion Device into Superior Vena Cava, Percutaneous Approach (ICD-10-PCS; 2020-05-10)
PROC: B548ZZA Ultrasonography of Superior Vena Cava, Guidance (ICD-10-PCS; 2020-05-10)
PROC: 0DB78ZX Excision of Stomach, Pylorus, Via Natural or Artificial Opening Endoscopic, Diagnostic (ICD-10-PCS; 2020-05-19)
PROC: 0DBN8ZX Excision of Sigmoid Colon, Via Natural or Artificial Opening Endoscopic, Diagnostic (ICD-10-PCS; principal; 2020-05-19 18:15)
PROC: 0DBL8ZX Excision of Transverse Colon, Via Natural or Artificial Opening Endoscopic, Diagnostic (ICD-10-PCS; 2020-05-19 18:15)
DX: K51.911 Ulcerative colitis, unspecified with rectal bleeding (principal); I10 Essential (primary) hypertension; E78.00 Pure hypercholesterolemia, unspecified; D50.0 Iron deficiency anemia secondary to blood loss (chronic); E11.65 Type 2 diabetes mellitus with hyperglycemia; D63.8 Anemia in other chronic diseases classified elsewhere; E86.0 Dehydration; E87.6 Hypokalemia; I95.89 Other hypotension; E86.1 Hypovolemia; I87.2 Venous insufficiency (chronic) (peripheral); Z20.828 Contact with and (suspected) exposure to other viral communicable diseases; E66.9 Obesity, unspecified; Z68.37 Body mass index [BMI] 37.0-37.9, adult; Z90.49 Acquired absence of other specified parts of digestive tract; Z88.2 Allergy status to sulfonamides; Z79.899 Other long term (current) drug therapy
CPT/HCPCS: 36415; 43239; 45380; 71045; 74177; 74400; 80048; 80053; 80061; 80069; 80074; 81001; 813; 82150; 82542; 82607; 82728; 82746; 82962; 83036; 83540; 83550; 83690; 83735; 83880; 84100; 84443; 85025; 85027; 85045; 85610; 85652; 86140; 86480; 86701; 87040; 87045; 87205; 87324; 87449; 88305; 96361; 96374; 96375; 99140; 99285; 0241U; C9113; C9803; J0171; J1610; J1642; J1650; J1815; J2270; J2405; J2550; J2704; J2920; J3480; J3490; J7030; J7120; J7512; S0028

== ENCOUNTER → 2020-06-09 | Outpatient (CLI) | payer BC ==
[2020-06-09 09:06] LABS: ABSOLUTE LYMPHOCYTES (AUTO) 0.8 10^3/uL (0.5-4.7); ABSOLUTE MONOCYTES (AUTO) 0.2 10^3/uL (0.1-1.4); ABSOLUTE NEUT (AUTO) 2.2 10^3/uL (1.7-8.2); BASOPHILS % (AUTO) 0.2 % (0-2); HEMATOCRIT 32.2 % (36.0-47.0); HEMOGLOBIN 10.9 g/dL (12.0-15.5); LYMPHOCYTES % (AUTO) 25.3 % (13-45); MEAN CORPUSCULAR HEMOGLOBIN 31.9 pg (27.0-33.4); MEAN CORPUSCULAR HGB CONC 33.7 g/dL (32.0-36.0); MEAN CORPUSCULAR VOLUME 95 fl (80-97); MONOCYTES % (AUTO) 5.9 % (3-13); PLATELET COUNT 234 10^3/uL (150-450); RED CELL DISTRIBUTION WIDTH 15.2 % (11.5-14.0); SEGMENTED NEUTROPHILS % (AUTO) 67.6 % (42-78); TOTAL CELLS COUNTED % (AUTO) 100 %; WHITE BLOOD COUNT 3.2 10^3/uL (4.0-10.5)
[2020-06-09 09:46] LABS: ASPARTATE AMINO TRANSFERASE 36 U/L (14-36); BLOOD UREA NITROGEN 8 mg/dL (7-20); CALCIUM 9.1 mg/dL (8.4-10.2); CHLORIDE 100 mmol/L (98-107); CHOLESTEROL 200.54 mg/dL (0-200); GLUCOSE 101 mg/dL (75-110); POTASSIUM 3.6 mmol/L (3.6-5.0); TRIGLYCERIDES 189 mg/dL (<150)
[2020-06-09 09:50] LABS: ANION GAP 5 (5-19); CARBON DIOXIDE 36 mmol/L (22-30)
[2020-06-09 09:57] LABS: DIRECT LDL 141 mg/dL (<100)
[2020-06-09 10:04] LABS: VLDL CHOLESTEROL 37.8 mg/dL (10-31)
== END ==
LOC: OD 07:52
PROVIDERS: ATTEND Family Medicine Geriatric Medicine
DX: K51.90 Ulcerative colitis, unspecified, without complications (principal); E78.5 Hyperlipidemia, unspecified; I10 Essential (primary) hypertension; E11.9 Type 2 diabetes mellitus without complications; Z79.899 Other long term (current) drug therapy
CPT/HCPCS: 36415; 80048; 80061; 83036; 83690; 84450; 84460; 85025

== ENCOUNTER → 2020-06-30 | Outpatient (CLI) | payer BC ==
[2020-06-30 08:27] LABS: MEAN CORPUSCULAR HEMOGLOBIN 31.6 pg (27.0-33.4); MEAN CORPUSCULAR HGB CONC 32.5 g/dL (32.0-36.0); MEAN CORPUSCULAR VOLUME 97 fl (80-97); PLATELET COUNT 252 10^3/uL (150-450); RED BLOOD COUNT 3.81 10^6/uL (3.72-5.28); RED CELL DISTRIBUTION WIDTH 15.4 % (11.5-14.0); WHITE BLOOD COUNT 4.8 10^3/uL (4.0-10.5)
[2020-06-30 08:50] LABS: ALBUMIN 3.6 g/dL (3.5-5.0); ALKALINE PHOSPHATASE 54 U/L (38-126); ASPARTATE AMINO TRANSFERASE 30 U/L (14-36); BILIRUBIN,DIRECT 0.1 mg/dL (0.0-0.4); BILIRUBIN,TOTAL 0.9 mg/dL (0.2-1.3); BLOOD UREA NITROGEN 15 mg/dL (7-20); CALCIUM 9.2 mg/dL (8.4-10.2); GLUCOSE 113 mg/dL (75-110); TOTAL PROTEIN 6.5 g/dL (6.3-8.2)
[2020-06-30 08:52] LABS: ANION GAP 5 (5-19); CARBON DIOXIDE 33 mmol/L (22-30); CHLORIDE 100 mmol/L (98-107)
[2020-06-30 08:54] LABS: C-REACTIVE PROTEIN < 5.0 mg/L (<10.0)
== END ==
LOC: OD 07:37
PROVIDERS: ATTEND Internal Medicine Gastroenterology
DX: K51.918 Ulcerative colitis, unspecified with other complication (principal)
CPT/HCPCS: 36415; 80053; 85027; 86140